=== PATIENT | male | born 1985 | race Caucasian/White ===

== ENCOUNTER 2019-12-19 16:22 | Inpatient (IN) | payer OTHER ==
[~2019-12-19] VITALS: Ht 185.4 cm; Wt 86.0 kg
[2019-12-19] MEDS ORDERED: KETOROLAC 30 MG/ML VIAL. ONE (17:48)
--- NOTE | 2019-12-19 17:58 | PHYS DOC ---
Adult General Chief Complaint Chief Complaint: SHORTNESS OF BREATH HPI HPI Patient is a 34 year old male patient who complains of shortness of breath, states he has been diagnosed with influenza presently 3 to 4 days ago, has been taking Tamiflu. States this morning he started to have some increase shortness of breath, with coughing which is led to some hemoptysis, had gone to urgent care and had chest x-ray performed due to the increased coughing and shortness of breath. States he was told he had an abscess in his chest and was told to come to the emergency room. States he has continued to have a fever, he has continued feel short of breath. States he had taken some Tylenol this morning. Does report he has history of a prior collapsed lung, on the left side, reports his discomfort and abscess were on the right side of his chest today. States no recent travel, or exposure to individuals who have recently traveled or been diagnosed with any acute illness of influenza. States he does have some body a ches. Denies nausea. Denies vomiting. Does report he vapes. Review of Systems Review of Systems Constitutional: reports fever, chills, fatigue [] Eyes: Denies change in visual acuity, redness, or eye pain [] HENT: Does report nasal congestion, sore throat related to his coughing. Denies ear pain [] Respiratory: Reports cough worsening today, some shortness of breath reports hemoptysis earlier today [] Cardiovascular: No additional information not addressed in HPI [] GI: Denies abdominal pain, nausea, vomiting, bloody stools or diarrhea [] : Denies dysuria or hematuria [] Musculoskeletal: Denies back pain or joint pain [] Integument: Denies rash or skin lesions [] Neurologic: Denies headache, focal weakness or sensory changes [] Endocrine: Denies polyuria or polydipsia [] All other systems were reviewed and found to be within normal limits, except as documented in this note. Current Medications Current Medications Current Medications Medications (Trade) Dose Ordered Sig/Sonido Start Time Stop Time Status Last Admin Dose Admin Benzonatate (Tessalon Perle) 100 mg TID 12/19/19 21:00 12/19/19 21:17 100 MG Ceftriaxone Sodium (Rocephin) 1 gm 1X ONCE 12/19/19 18:45 12/19/19 18:46 DC 12/19/19 18:56 1 GM Guaifenesin (Mucinex) 600 mg BID 12/19/19 21:00 12/19/19 21:17 600 MG Guaifenesin/ Codeine Phosphate (Robitussin Ac) 10 ml PRN Q6HRS PRN 12/19/19 20:45 Info (CONTRAST GIVEN -- Rx MONITORING) 1 each PRN DAILY PRN 12/19/19 18:30 12/21/19 18:29 Iohexol (Omnipaque 300 Mg/ml) 75 ml 1X ONCE 12/19/19 18:15 12/19/19 18:16 DC 12/19/19 18:23 75 ML Ketorolac Tromethamine (Toradol 30mg Vial) 30 mg 1X ONCE 12/19/19 18:00 12/19/19 18:01 DC 12/19/19 17:54 30 MG Morphine Sulfate (Morphine Sulfate) 2 mg PRN Q2HR PRN 12/19/19 20:00 12/20/19 19:59 Ondansetron HCl (Zofran) 4 mg PRN Q8HRS PRN 12/19/19 20:00 12/20/19 19:59 Piperacillin Sod/ Tazobactam Sod (Zosyn Per Pharmacy) 1 each PRN DAILY PRN 12/19/19 20:30 Piperacillin Sod/ Tazobactam Sod 3.375 gm/Sodium Chloride 50 ml @ 100 mls/hr 1X ONCE 12/19/19 19:30 12/19/19 19:59 DC 12/19/19 19:40 100 MLS/HR Sodium Chloride 1,000 ml @ 125 mls/hr Q8H 12/19/19 19:50 12/20/19 19:49 12/19/19 21:39 125 MLS/HR Vancomycin HCl 250 ml @ 250 mls/hr 1X ONCE 12/19/19 19:30 12/19/19 20:29 DC 12/19/19 20:24 250 MLS/HR Allergies Allergies Allergies Coded Allergies Type Severity Reaction Last Updated Verified No Known Drug Allergies 12/19/19 No Physical Exam Physical Exam Constitutional: Well developed, well nourished, no acute distress, appears ill. [] HENT: Normocephalic, atraumatic, bilateral external ears normal, oropharynx moist, no oral exudates, nose normal. [] Eyes: PERRLA, EOMI, conjunctiva normal, no discharge. [] Neck: Normal range of motion, no tenderness, supple, no stridor. [] Cardiovascular:Heart rate regular rhythm, tachycardic no murmur [] Lungs & Thorax: Bilateral breath sounds clear to auscultation patient able speak in multiple word sentences. [] Abdomen: Bowel sounds normal, soft, no tenderness, no masses, no pulsatile masses. [] Skin: Warm, dry, no erythema, no rash. [] Back: No tenderness, no CVA tenderness. [] Extremities: No tenderness, no cyanosis, no clubbing, ROM intact, no edema. [] Neurologic: Alert and oriented X 3, normal motor function, normal sensory function, no focal deficits noted. [] Psychologic: Affect normal, judgement normal, mood normal. [] Current Patient Data Vital Signs Vital Signs Date Time Temp Pulse Resp B/P (MAP) Pulse Ox O2 Delivery O2 Flow Rate FiO2 12/19/19 21:24 99.7 99.7 12/19/19 17:35 126 24 132/64 (86) 94 Room Air Lab Values Laboratory Tests Test 12/19/19 17:45 12/19/19 18:00 12/19/19 21:00 White Blood Count 17.4 x10^3/uL (4.0-11.0) H Red Blood Count 5.04 x10^6/uL (4.30-5.70) Hemoglobin 14.7 g/dL (13.0-17.5) Hematocrit 43.6 % (39.0-53.0) Mean Corpuscular Volume 86 fL (79-100) Mean Corpuscular Hemoglobin 29 pg (25-35) Mean Corpuscular Hemoglobin Concent 34 g/dL (31-37) Red Cell Distribution Width 13.3 % (11.5-14.5) Platelet Count 366 x10^3/uL (140-400) Neutrophils (%) (Auto) 70 % (31-73) Lymphocytes (%) (Auto) 17 % (24-48) L Monocytes (%) (Auto) 11 % (0-9) H Eosinophils (%) (Auto) 1 % (0-3) Basophils (%) (Auto) 0 % (0-3) Neutrophils # (Auto) 12.2 x10^3/uL (1.8-7.7) H Lymphocytes # (Auto) 3.0 x10^3/uL (1.0-4.8) Monocytes # (Auto) 2.0 x10^3/uL (0.0-1.1) H Eosinophils # (Auto) 0.2 x10^3/uL (0.0-0.7) Basophils # (Auto) 0.1 x10^3/uL (0.0-0.2) Segmented Neutrophils % 58 % (35-66) Band Neutrophils % 15 % (0-9) H Lymphocytes % 18 % (24-48) L Atypical Lymphocytes % (Manual) 2 % (0-0) H Monocytes % 7 % (0-10) Platelet Estimate Adequate (ADEQUATE) Giant Platelets Occ Sodium Level 139 mmol/L (136-145) Potassium Level 3.6 mmol/L (3.5-5.1) Chloride Level 101 mmol/L (98-107) Carbon Dioxide Level 29 mmol/L (21-32) Anion Gap 9 (6-14) Blood Urea Nitrogen 13 mg/dL (8-26) Creatinine 1.1 mg/dL (0.7-1.3) Estimated GFR (Cockcroft-Gault) 76.2 BUN/Creatinine Ratio 12 (6-20) Glucose Level 95 mg/dL (70-99) Lactic Acid Level 2.3 mmol/L (0.4-2.0) H 1.3 mmol/L (0.4-2.0) Calcium Level 9.0 mg/dL (8.5-10.1) Magnesium Level 2.4 mg/dL (1.8-2.4) Total Bilirubin 0.9 mg/dL (0.2-1.0) Aspartate Amino Transferase (AST) 13 U/L (15-37) L Alanine Aminotransferase (ALT) 27 U/L (16-63) Alkaline Phosphatase 81 U/L (46-116) Troponin I Quantitative < 0.017 ng/mL (0.000-0.055) Total Protein 8.0 g/dL (6.4-8.2) Albumin 3.5 g/dL (3.4-5.0) Albumin/Globulin Ratio 0.8 (1.0-1.7) L Urine Collection Type Unknown Urine Color [place] Urine Clarity Clear Urine pH 6.0 (<5.0-8.0) Urine Specific [place] 1.025 (1.000-1.030) Urine Protein 30 mg/dL (NEG-TRACE) Urine Glucose (UA) Negative mg/dL (NEG) Urine Ketones (Stick) 15 mg/dL (NEG) Urine Blood Negative (NEG) Urine Nitrite Negative (NEG) Urine Bilirubin Small (NEG) Urine Urobilinogen Dipstick 1.0 mg/dL (0.2 mg/dL) Urine Leukocyte Esterase Negative (NEG) Urine RBC Occ /HPF (0-2) Urine WBC 1-4 /HPF (0-4) Urine Squamous Epithelial Cells Occ /LPF Urine Bacteria 0 /HPF (0-FEW) Urine Mucus Mod /LPF Laboratory Tests 12/19/19 17:45 Laboratory Tests 12/19/19 17:45 EKG EKG Sinus tachycardia without ST changes. Per Dr. Bird @[id number][] Radiology/Procedures Radiology/Procedures []FINDINGS: Heart size normal. Thoracic aorta, esophagus and pulmonary vessels are unremarkable. Subcentimeter mediastinal and right hilar lymph nodes. Subcentimeter in thickness dependent left pleural effusion at the lung base. There is asymmetric left hilar and infrahilar adenopathy largest lymph nodes measuring up to 2.5 cm. Bilateral upper lobe paraseptal pulmonary emphysema, with bullous change at the lung apices. Along the right anterior lung apex there is a area of pleural parenchymal fibrosis and dense dystrophic calcification measuring 3 x 2 cm. At the left upper lobe posterior segment and upper lingula there is opacity, which surrounds a upper lingula lateral subpleural thick walled cavitation with air-fluid levels or cavitation is a diameter 6 cm. No obvious extension across the pleura to the chest wall of the cavitary lesion evident. Bones unremarkable. IMPRESSION: 1. Lingula 6 cm thick-walled cavitary subpleural lesion with an air-fluid level and surrounding opacity of the lingula and left upper lobe. This could represent a necrotizing pneumonia and pulmonary abscess, a large cavitary pulmonary infarct with superinfection of the cavity, reactivation tuberculosis, or a cavitary malignancy. Given the single lesion, an autoimmune disease such as Melissa's granulomatosis is unlikely. 2. Small left pleural effusion. 3. Left hilar adenopathy. Electronically signed by: Edilson Patel MD (12/19/2019 6:54 PM) [id number] Course & Med Decision Making Course & Med Decision Making Pertinent Labs and Imaging studies reviewed. (See chart for details) [@[address] Liao, Pulmonology. Recommend starting Zosyn and Vancomycin. Recommends consult with infectious disease. Admission of the patient the hospitalist. He will see in hospital tomorrow. @[address] Carlisle, hospitalist, agrees to admission Dragon Disclaimer Dragon Disclaimer This electronic medical record was generated, in whole or in part, using a voice recognition dictation system. Departure Departure Impression: Primary Impression: Pulmonary abscess Additional Impression: Leukocytosis Disposition: ADMITTED INPATIENT Admitting Physician: HIMS Condition: STABLE Referrals: NO PCP (PCP) Problem Qualifiers Primary Impression: Pulmonary abscess Pulmonary abscess pneumonia presence: with pneumonia Laterality: left Lung location: upper lobe of lung Qualified Codes: J85.1 - Abscess of lung with pneumonia Additional Impression: Leukocytosis Leukocytosis type: bandemia Qualified Codes: D72.825 - Bandemia DARYL RIVERO [employer] Dec 19, 2019 17:58
[2019-12-19] MEDS ORDERED: IV NORMAL SALINE 1000ML BAG 1,000 ML IV ONE ×2 (18:00→18:45)
[2019-12-19] MEDS ORDERED: KETOROLAC 30 MG/ML VIAL. IVP ONE (18:00)
[2019-12-19 18:03] LABS: BASO # 0.1 x10^3/uL (0.0-0.2); BASO % 0 % (0-3); EOS # 0.2 x10^3/uL (0.0-0.7); EOS % 1 % (0-3); HEMATOCRIT 43.6 % (39.0-53.0); HEMOGLOBIN 14.7 g/dL (13.0-17.5); LYMPH % 17 % (24-48); MEAN CORPUSCULAR HEMOGLOBIN 29 pg (25-35); MEAN CORPUSCULAR HGB CONC 34 g/dL (31-37); MEAN CORPUSCULAR VOLUME 86 fL (79-100); MONO % 11 % (0-9); NEUT # 12.2 x10^3/uL (1.8-7.7); NEUT % 70 % (31-73); PLATELET COUNT 366 x10^3/uL (140-400); RED BLOOD COUNT 5.04 x10^6/uL (4.30-5.70); RED CELL DISTRIBUTION WIDTH 13.3 % (11.5-14.5); WHITE BLOOD COUNT 17.4 x10^3/uL (4.0-11.0)
[2019-12-19 18:07] LABS: BILIRUBIN,URINE SMALL (NEG); CLARITY,URINE CLEAR; COLOR,URINE AMBER; NITRITE,URINE NEGATIVE (NEG); PROTEIN,URINE 30 mg/dL (NEG-TRACE)
[2019-12-19 18:10] LABS: CREATININE 1.1 mg/dL (0.7-1.3); GFR 76.2; POTASSIUM 3.6 mmol/L (3.5-5.1)
[2019-12-19] MEDS ORDERED: IOHEXOL 300 MG/ML 100ML VIAL. IV ONE (18:15)
[2019-12-19 18:17] LABS: ALBUMIN 3.5 g/dL (3.4-5.0); ALBUMIN/GLOBULIN RATIO 0.8 (1.0-1.7); MAGNESIUM 2.4 mg/dL (1.8-2.4); TOTAL BILIRUBIN 0.9 mg/dL (0.2-1.0)
[2019-12-19 18:17] LABS: BACTERIA,URINE 0 /HPF (0-FEW); RBC,URINE OCC /HPF (0-2); SQUAMOUS EPITHELIAL CELL,UR OCC /LPF
[2019-12-19] MEDS ORDERED: CONTRAST GIVEN. MC PRN (18:30)
[2019-12-19] MEDS ORDERED: cefTRIAXone IV Push 1 GM VIAL. IVP ONE (18:45)
[2019-12-19 18:49] LABS: % ATYL 2 % (0-0); % BANDS 15 % (0-9); % LYMPHS 18 % (24-48)
[2019-12-19 18:51] LABS: % MONOS 7 % (0-10); % SEGS 58 % (35-66); PLT ESTIMATE ADEQUATE (ADEQUATE)
--- NOTE | 2019-12-19 18:57 | RAD ---
CT chest with contrast PQRS statement: CT scans at this facility use dose reduction including either automated exposure control, iterative reconstructions, and /or weight based radiation dosing via mA and kV modification when appropriate to reduce radiation dose to as low as reasonably achievable. Contrast: 75 mL Omnipaque 300 intravenous contrast. HISTORY: Shortness of breath, hemoptysis. FINDINGS: Heart size normal. Thoracic aorta, esophagus and pulmonary vessels are unremarkable. Subcentimeter mediastinal and right hilar lymph nodes. Subcentimeter in thickness dependent left pleural effusion at the lung base. There is asymmetric left hilar and infrahilar adenopathy largest lymph nodes measuring up to 2.5 cm. Bilateral upper lobe paraseptal pulmonary emphysema, with bullous change at the lung apices. Along the right anterior lung apex there is a area of pleural parenchymal fibrosis and dense dystrophic calcification measuring 3 x 2 cm. At the left upper lobe posterior segment and upper lingula there is opacity, which surrounds a upper lingula lateral subpleural thick walled cavitation with air-fluid levels or cavitation is a diameter 6 cm. No obvious extension across the pleura to the chest wall of the cavitary lesion evident. Bones unremarkable. IMPRESSION: 1. Lingula 6 cm thick-walled cavitary subpleural lesion with an air-fluid level and surrounding opacity of the lingula and left upper lobe. This could represent a necrotizing pneumonia and pulmonary abscess, a large cavitary pulmonary infarct with superinfection of the cavity, reactivation tuberculosis, or a cavitary malignancy. Given the single lesion, an autoimmune disease such as Melissa's granulomatosis is unlikely. 2. Small left pleural effusion. 3. Left hilar adenopathy. Electronically signed by: Edilson Patel MD (12/19/2019 6:54 PM) [id number]
[2019-12-19] MEDS ORDERED: PIPERACILLIN/TAZOBACTAM 3.375 GM in IV NORMAL SALINE 50ML 50 ML IV ONE (19:30)
[2019-12-19] MEDS ORDERED: VANCOMYCIN 1GM IVPB FOR OMNI 250 ML IV ONE (19:30)
[2019-12-19] MEDS ORDERED: MORPHINE SULFATE 2 MG/ML VIAL. IV PRN (20:00)
[2019-12-19] MEDS ORDERED: ONDANSETRON PF 4 MG/2 ML VIAL. IV PRN (20:00)
[2019-12-19] MEDS ORDERED: guaiFENesin/CODEINE 100mg/10mg 5 ML LIQUID PO PRN (20:00)
[2019-12-19] MEDS ORDERED: PIP/TAZO PER PHARMACY MC PRN (20:30)
--- NOTE | 2019-12-19 20:47 | PDOC1 ---
History and Physical Date of Admission Date of Admission DATE: 12/19/19 TIME: 20:44 History of Present Illness History of Present Illness Mr. Nix, is a 34 year old male patient who complains of shortness of breath, states he has been diagnosed with influenza presently 3 to 4 days ago, has been taking Tamiflu. States this morning he started to have some increase shortness of breath, with coughing which is led to some hemoptysis, had gone to urgent care and had chest x-ray performed due to the increased coughing and shortness of breath. States he was told he had an abscess in his chest and was told to come to the emergency room. States he has continued to have a fever, he has continued feel short of breath. States he had taken some Tylenol this morning. Does report he has history of a prior collapsed lung, on the left side, reports his discomfort and abscess were on the right side of his chest today. States no recent travel, or exposure to individuals who have recently traveled or been diagnosed with any acute illness of influenza. States he does have some body aches. he works for [employer], installing in [place] Past Medical History Cardiovascular: No pertinent hx Pulmonary: Other (spont pneumothorax years ago, contralteral) Past Surgical History Past Surgical History: Other (had spont pneumo) Family History Family History: Asthma Social History Smoke: <1 pack per day (VAPING) ALCOHOL: none Drugs: None Current Problem List Problem List Problems Medical Problems: (1) Leukocytosis Status: Acute (2) Pulmonary abscess Status: Acute Current Medications Current Medications Current Medications Ketorolac Tromethamine (Toradol 30mg Vial) 30 mg STK-MED ONCE .ROUTE ; Start 12/19/19 at 17:48; Stop 12/19/19 at 17:48; Status DC Ketorolac Tromethamine (Toradol 30mg Vial) 30 mg 1X ONCE IVP Last administered on 12/19/19at 17:54; Start 12/19/19 at 18:00; Stop 12/19/19 at 18:01; Status DC Sodium Chloride 1,000 ml @ 1,000 mls/hr 1X ONCE IV Last administered on 12/19/19at 17:54; Start 12/19/19 at 18:00; Stop 12/19/19 at 18:59; Status DC Iohexol (Omnipaque 300 Mg/ml) 75 ml 1X ONCE IV Last administered on 12/19/19at 18:23; Start 12/19/19 at 18:15; Stop 12/19/19 at 18:16; Status DC Info (CONTRAST GIVEN -- Rx MONITORING) 1 each PRN DAILY PRN MC SEE COMMENTS; Start 12/19/19 at 18:30; Stop 12/21/19 at 18:29 Sodium Chloride 1,000 ml @ 1,000 mls/hr 1X ONCE IV Last administered on 12/19/19at 18:57; Start 12/19/19 at 18:45; Stop 12/19/19 at 19:44; Status DC Ceftriaxone Sodium (Rocephin) 1 gm 1X ONCE IVP Last administered on 12/19/19at 18:56; Start 12/19/19 at 18:45; Stop 12/19/19 at 18:46; Status DC Piperacillin Sod/ Tazobactam Sod 3.375 gm/Sodium Chloride 50 ml @ 100 mls/hr 1X ONCE IV Last administered on 12/19/19at 19:40; Start 12/19/19 at 19:30; Stop 12/19/19 at 19:59; Status DC Vancomycin HCl 250 ml @ 250 mls/hr 1X ONCE IV Last administered on 12/19/19at 20:24; Start 12/19/19 at 19:30; Stop 12/19/19 at 20:29; Status DC Guaifenesin/ Codeine Phosphate (Robitussin Ac) 5 ml PRN Q6HRS PRN PO COUGH; Start 12/19/19 at 20:00 Ondansetron HCl (Zofran) 4 mg PRN Q8HRS PRN IV NAUSEA/VOMITING; Start 12/19/19 at 20:00; Stop 12/20/19 at 19:59 Morphine Sulfate (Morphine Sulfate) 2 mg PRN Q2HR PRN IV PAIN; Start 12/19/19 at 20:00; Stop 12/20/19 at 19:59 Sodium Chloride 1,000 ml @ 125 mls/hr Q8H IV ; Start 12/19/19 at 19:50; Stop 12/20/19 at 19:49 Piperacillin Sod/ Tazobactam Sod (Zosyn Per Pharmacy) 1 each PRN DAILY PRN MC SEE COMMENTS; Start 12/19/19 at 20:30 Linezolid/Dextrose 300 ml @ 300 mls/hr Q12HR IV ; Start 12/19/19 at 22:00 Piperacillin Sod/ Tazobactam Sod 4.5 gm/Sodium Chloride 100 ml @ 200 mls/hr Q6HRS IV ; Start 12/20/19 at 00:00 Benzonatate (Tessalon Perle) 100 mg TID PO ; Start 12/19/19 at 21:00 Guaifenesin/ Codeine Phosphate (Robitussin Ac) 10 ml PRN Q6HRS PRN PO COUGH; Start 12/19/19 at 20:45 Guaifenesin (Mucinex) 600 mg BID PO ; Start 12/19/19 at 21:00 Allergies Allergies: Coded Allergies: No Known Drug Allergies (Unverified , 12/19/19) ROS Review of System fever General: YES: Chills, Fatigue, Malaise, Appetite; No: Night Sweats, Other PSYCHOLOGICAL ROS: YES: Irritablity, Sleep disturbances; No: Anxiety, Behavioral Disorder, Concentration difficultie, Decreased libido , Depression, Disorientation, Hallucinations, Memory difficulties, Mood Swings, Obsessive thoughts, Physical abuse, Sexual abuse, Suicidal ideation, Other Eyes: No Blurry vision, No Decreased vision, No Double vision, No Dry eyes, No Excessive tearing, No Eye Pain, No Itchy Eyes, No Loss of vision, No Photophobia, No Scotomata, No Uses contacts, No Uses glasses, No Other Respiratory: YES: Cough, Pleuritic Pain, SOB with excertion, Tachypnea Cardiovascular: yes Chest Pain Gastrointestinal: No Nausea, No Vomiting, No Abdominal Pain, No Diarrhea, No Constipation, No Melena, No Hematochezia, No Other Genitourinary: No Dysuria, No Frequency, No Incontinence, No Hematuria, No Retention, No Discharge, No Urgency, No Pain, No Flank Pain, No Other, No , No , No , No , No , No , No Musculoskeletal: No Gait Disturbance, No Joint Pain, No Joint Stiffness, No Joint Swelling, No Muscle Pain, No Muscular Weakness, No Pain In:, No Swelling In:, No Other Neurological: No Behavorial Changes, No Bowel/Bladder ControlChng, No Confusion, No Dizziness, No Gait Disturbance, No Headaches, No Impaired Coord/balance, No Memory Loss, No Numbness/Tingling, No Seizures, No Speech Problems, No Tremors, No Visual Changes, No Weakness, No Other Skin: No Dry Skin, No Eczema, No Hair Changes, No Lumps, No Mole Changes, No Mottling, No Nail Changes, No Pruritus, No Rash, No Skin Lesion Changes, No Other, No Acne Physical Exam General: Alert, Oriented X3, Cooperative, moderate distress HEENT: Atraumatic, PERRLA Lungs: Clear to auscultation Heart: RRR, no thrills, no gallops, no murmurs Abdomen: Normal bowel sounds, Soft Extremities: No clubbing, No cyanosis, No edema Skin: No rashes, No significant lesion Neuro: Normal gait, Normal speech, Sensation intact Psych/Mental Status: Other (distress, cough) Vitals Vitals Vital Signs Date Time Temp Pulse Resp B/P (MAP) Pulse Ox O2 Delivery O2 Flow Rate FiO2 12/19/19 17:35 98.2 126 24 132/64 (86) 94 Room Air 98.2 Labs Labs Laboratory Tests Test 12/19/19 17:45 12/19/19 18:00 White Blood Count 17.4 x10^3/uL (4.0-11.0) Red Blood Count 5.04 x10^6/uL (4.30-5.70) Hemoglobin 14.7 g/dL (13.0-17.5) Hematocrit 43.6 % (39.0-53.0) Mean Corpuscular Volume 86 fL (79-100) Mean Corpuscular Hemoglobin 29 pg (25-35) Mean Corpuscular Hemoglobin Concent 34 g/dL (31-37) Red Cell Distribution Width 13.3 % (11.5-14.5) Platelet Count 366 x10^3/uL (140-400) Neutrophils (%) (Auto) 70 % (31-73) Lymphocytes (%) (Auto) 17 % (24-48) Monocytes (%) (Auto) 11 % (0-9) Eosinophils (%) (Auto) 1 % (0-3) Basophils (%) (Auto) 0 % (0-3) Neutrophils # (Auto) 12.2 x10^3/uL (1.8-7.7) Lymphocytes # (Auto) 3.0 x10^3/uL (1.0-4.8) Monocytes # (Auto) 2.0 x10^3/uL (0.0-1.1) Eosinophils # (Auto) 0.2 x10^3/uL (0.0-0.7) Basophils # (Auto) 0.1 x10^3/uL (0.0-0.2) Segmented Neutrophils % 58 % (35-66) Band Neutrophils % 15 % (0-9) Lymphocytes % 18 % (24-48) Atypical Lymphocytes % (Manual) 2 % (0-0) Monocytes % 7 % (0-10) Platelet Estimate Adequate (ADEQUATE) Giant Platelets Occ Sodium Level 139 mmol/L (136-145) Potassium Level 3.6 mmol/L (3.5-5.1) Chloride Level 101 mmol/L (98-107) Carbon Dioxide Level 29 mmol/L (21-32) Anion Gap 9 (6-14) Blood Urea Nitrogen 13 mg/dL (8-26) Creatinine 1.1 mg/dL (0.7-1.3) Estimated GFR (Cockcroft-Gault) 76.2 BUN/Creatinine Ratio 12 (6-20) Glucose Level 95 mg/dL (70-99) Lactic Acid Level 2.3 mmol/L (0.4-2.0) Calcium Level 9.0 mg/dL (8.5-10.1) Magnesium Level 2.4 mg/dL (1.8-2.4) Total Bilirubin 0.9 mg/dL (0.2-1.0) Aspartate Amino Transf (AST/SGOT) 13 U/L (15-37) Alanine Aminotransferase (ALT/SGPT) 27 U/L (16-63) Alkaline Phosphatase 81 U/L (46-116) Troponin I Quantitative < 0.017 ng/mL (0.000-0.055) Total Protein 8.0 g/dL (6.4-8.2) Albumin 3.5 g/dL (3.4-5.0) Albumin/Globulin Ratio 0.8 (1.0-1.7) Urine Collection Type Unknown Urine Color [place]ina Urine Clarity Clear Urine pH 6.0 (<5.0-8.0) Urine Specific [place] 1.025 (1.000-1.030) Urine Protein 30 mg/dL (NEG-TRACE) Urine Glucose (UA) Negative mg/dL (NEG) Urine Ketones (Stick) 15 mg/dL (NEG) Urine Blood Negative (NEG) Urine Nitrite Negative (NEG) Urine Bilirubin Small (NEG) Urine Urobilinogen Dipstick 1.0 mg/dL (0.2 mg/dL) Urine Leukocyte Esterase Negative (NEG) Urine RBC Occ /HPF (0-2) Urine WBC 1-4 /HPF (0-4) Urine Squamous Epithelial Cells Occ /LPF Urine Bacteria 0 /HPF (0-FEW) Urine Mucus Mod /LPF Laboratory Tests Test 12/19/19 17:45 12/19/19 18:00 White Blood Count 17.4 x10^3/uL (4.0-11.0) Red Blood Count 5.04 x10^6/uL (4.30-5.70) Hemoglobin 14.7 g/dL (13.0-17.5) Hematocrit 43.6 % (39.0-53.0) Mean Corpuscular Volume 86 fL (79-100) Mean Corpuscular Hemoglobin 29 pg (25-35) Mean Corpuscular Hemoglobin Concent 34 g/dL (31-37) Red Cell Distribution Width 13.3 % (11.5-14.5) Platelet Count 366 x10^3/uL (140-400) Neutrophils (%) (Auto) 70 % (31-73) Lymphocytes (%) (Auto) 17 % (24-48) Monocytes (%) (Auto) 11 % (0-9) Eosinophils (%) (Auto) 1 % (0-3) Basophils (%) (Auto) 0 % (0-3) Neutrophils # (Auto) 12.2 x10^3/uL (1.8-7.7) Lymphocytes # (Auto) 3.0 x10^3/uL (1.0-4.8) Monocytes # (Auto) 2.0 x10^3/uL (0.0-1.1) Eosinophils # (Auto) 0.2 x10^3/uL (0.0-0.7) Basophils # (Auto) 0.1 x10^3/uL (0.0-0.2) Segmented Neutrophils % 58 % (35-66) Band Neutrophils % 15 % (0-9) Lymphocytes % 18 % (24-48) Atypical Lymphocytes % (Manual) 2 % (0-0) Monocytes % 7 % (0-10) Platelet Estimate Adequate (ADEQUATE) Giant Platelets Occ Sodium Level 139 mmol/L (136-145) Potassium Level 3.6 mmol/L (3.5-5.1) Chloride Level 101 mmol/L (98-107) Carbon Dioxide Level 29 mmol/L (21-32) Anion Gap 9 (6-14) Blood Urea Nitrogen 13 mg/dL (8-26) Creatinine 1.1 mg/dL (0.7-1.3) Estimated GFR (Cockcroft-Gault) 76.2 BUN/Creatinine Ratio 12 (6-20) Glucose Level 95 mg/dL (70-99) Lactic Acid Level 2.3 mmol/L (0.4-2.0) Calcium Level 9.0 mg/dL (8.5-10.1) Magnesium Level 2.4 mg/dL (1.8-2.4) Total Bilirubin 0.9 mg/dL (0.2-1.0) Aspartate Amino Transf (AST/SGOT) 13 U/L (15-37) Alanine Aminotransferase (ALT/SGPT) 27 U/L (16-63) Alkaline Phosphatase 81 U/L (46-116) Troponin I Quantitative < 0.017 ng/mL (0.000-0.055) Total Protein 8.0 g/dL (6.4-8.2) Albumin 3.5 g/dL (3.4-5.0) Albumin/Globulin Ratio 0.8 (1.0-1.7) Urine Collection Type Unknown Urine Color [place] Urine Clarity Clear Urine pH 6.0 (<5.0-8.0) Urine Specific [place] 1.025 (1.000-1.030) Urine Protein 30 mg/dL (NEG-TRACE) Urine Glucose (UA) Negative mg/dL (NEG) Urine Ketones (Stick) 15 mg/dL (NEG) Urine Blood Negative (NEG) Urine Nitrite Negative (NEG) Urine Bilirubin Small (NEG) Urine Urobilinogen Dipstick 1.0 mg/dL (0.2 mg/dL) Urine Leukocyte Esterase Negative (NEG) Urine RBC Occ /HPF (0-2) Urine WBC 1-4 /HPF (0-4) Urine Squamous Epithelial Cells Occ /LPF Urine Bacteria 0 /HPF (0-FEW) Urine Mucus Mod /LPF VTE Prophylaxis Ordered VTE Prophylaxis Devices: Yes VTE Pharmacological Prophylaxi: No (chest tube likely needed) Assessment/Plan Assessment/Plan sepsis recent influenza, possible superinfection with pulmonary abcess. broad abx, , pulm consult, will consult IR, may need chest tube, consult ID, abx, cough meds, admit MOE CARRINGTON MD Dec 19, 2019 20:47
[2019-12-19] MEDS: BENZONATATE 100 MG CAPSULE. PO SCH (21:17)
[2019-12-19] MEDS: IV NORMAL SALINE 1000ML BAG 1,000 ML IV SCH (21:39)
[2019-12-19 23:31] VITALS: BP 114/59
[2019-12-20] VITALS (7 sets, daily range): BP systolic 110–138; BP diastolic 51–70
[2019-12-20] MEDS ORDERED: ACETAMINOPHEN 325 MG TABLET. PO ONE ×2
[2019-12-20] MEDS: PIPERACILLIN/TAZOBACTAM 4.5 GM in IV NORMAL SALINE 100ML 100 ML IV SCH ×4 (00:57→18:20)
[2019-12-20] MEDS: guaiFENesin/CODEINE 100mg/10mg 5 ML LIQUID PO PRN (01:00)
[2019-12-20] MEDS: IV NORMAL SALINE 1000ML BAG 1,000 ML IV SCH ×2 (04:22→18:20)
--- NOTE | 2019-12-20 05:28 | EKG ---
[facility] [address] [place] [address] Test Date: 2019-12-19 Test Time: 17:52:10 Pat Name: ABDIFATAH PALMA Department: Room: Gender: M [employer]: : 1985 Requested By: DARYL RIVERO Order Number: [id number] Reading MD: Measurements Intervals [place] Rate: 114 P: 20 AR: 132 QRS: 51 QRSD: 92 T: 39 QT: 304 QTc: 422 Interpretive Statements SINUS TACHYCARDIA INCOMPLETE RIGHT BUNDLE BRANCH BLOCK QRS(T) CONTOUR ABNORMALITY CONSIDER ANTEROSEPTAL MYOCARDIAL DAMAGE POSSIBLY ABNORMAL ECG RI6.01 No previous ECG available for comparison
[2019-12-20 06:59] LABS: CALCIUM 7.8 mg/dL (8.5-10.1); POTASSIUM 3.7 mmol/L (3.5-5.1)
--- NOTE | 2019-12-20 09:04 | PDOC ---
Infectious Disease Note Vital Sign Vital Signs Vital Signs Date Time Temp Pulse Resp B/P (MAP) Pulse Ox O2 Delivery O2 Flow Rate FiO2 12/20/19 07:00 98.2 97 16 110/58 (75) 94 Nasal Cannula 3.0 98.2 Labs Lab Laboratory Tests Test 12/19/19 17:45 12/19/19 18:00 12/19/19 21:00 12/20/19 06:26 White Blood Count 17.4 x10^3/uL (4.0-11.0) Red Blood Count 5.04 x10^6/uL (4.30-5.70) Hemoglobin 14.7 g/dL (13.0-17.5) Hematocrit 43.6 % (39.0-53.0) Mean Corpuscular Volume 86 fL (79-100) Mean Corpuscular Hemoglobin 29 pg (25-35) Mean Corpuscular Hemoglobin Concent 34 g/dL (31-37) Red Cell Distribution Width 13.3 % (11.5-14.5) Platelet Count 366 x10^3/uL (140-400) Neutrophils (%) (Auto) 70 % (31-73) Lymphocytes (%) (Auto) 17 % (24-48) Monocytes (%) (Auto) 11 % (0-9) Eosinophils (%) (Auto) 1 % (0-3) Basophils (%) (Auto) 0 % (0-3) Neutrophils # (Auto) 12.2 x10^3/uL (1.8-7.7) Lymphocytes # (Auto) 3.0 x10^3/uL (1.0-4.8) Monocytes # (Auto) 2.0 x10^3/uL (0.0-1.1) Eosinophils # (Auto) 0.2 x10^3/uL (0.0-0.7) Basophils # (Auto) 0.1 x10^3/uL (0.0-0.2) Segmented Neutrophils % 58 % (35-66) Band Neutrophils % 15 % (0-9) Lymphocytes % 18 % (24-48) Atypical Lymphocytes % (Manual) 2 % (0-0) Monocytes % 7 % (0-10) Platelet Estimate Adequate (ADEQUATE) Giant Platelets Occ Sodium Level 139 mmol/L (136-145) 138 mmol/L (136-145) Potassium Level 3.6 mmol/L (3.5-5.1) 3.7 mmol/L (3.5-5.1) Chloride Level 101 mmol/L (98-107) 105 mmol/L (98-107) Carbon Dioxide Level 29 mmol/L (21-32) 22 mmol/L (21-32) Anion Gap 9 (6-14) 11 (6-14) Blood Urea Nitrogen 13 mg/dL (8-26) 12 mg/dL (8-26) Creatinine 1.1 mg/dL (0.7-1.3) 1.0 mg/dL (0.7-1.3) Estimated GFR (Cockcroft-Gault) 76.2 85.0 BUN/Creatinine Ratio 12 (6-20) Glucose Level 95 mg/dL (70-99) 113 mg/dL (70-99) Lactic Acid Level 2.3 mmol/L (0.4-2.0) 1.3 mmol/L (0.4-2.0) Calcium Level 9.0 mg/dL (8.5-10.1) 7.8 mg/dL (8.5-10.1) Magnesium Level 2.4 mg/dL (1.8-2.4) Total Bilirubin 0.9 mg/dL (0.2-1.0) Aspartate Amino Transf (AST/SGOT) 13 U/L (15-37) Alanine Aminotransferase (ALT/SGPT) 27 U/L (16-63) Alkaline Phosphatase 81 U/L (46-116) Troponin I Quantitative < 0.017 ng/mL (0.000-0.055) Total Protein 8.0 g/dL (6.4-8.2) Albumin 3.5 g/dL (3.4-5.0) Albumin/Globulin Ratio 0.8 (1.0-1.7) Urine Collection Type Unknown Urine Color [place]ina Urine Clarity Clear Urine pH 6.0 (<5.0-8.0) Urine Specific [place] 1.025 (1.000-1.030) Urine Protein 30 mg/dL (NEG-TRACE) Urine Glucose (UA) Negative mg/dL (NEG) Urine Ketones (Stick) 15 mg/dL (NEG) Urine Blood Negative (NEG) Urine Nitrite Negative (NEG) Urine Bilirubin Small (NEG) Urine Urobilinogen Dipstick 1.0 mg/dL (0.2 mg/dL) Urine Leukocyte Esterase Negative (NEG) Urine RBC Occ /HPF (0-2) Urine WBC 1-4 /HPF (0-4) Urine Squamous Epithelial Cells Occ /LPF Urine Bacteria 0 /HPF (0-FEW) Urine Mucus Mod /LPF Objective Assessment pt seen, consult dictated Plan Plan of Care / NOEMI POWELL MD Dec 20, 2019 09:04
[2019-12-20] MEDS: LACTOBACILLUS RHAMNOSUS GG 1 CAPSULE. PO SCH ×2 (09:53→21:16)
[2019-12-20] MEDS: BENZONATATE 100 MG CAPSULE. PO SCH ×3 (09:53→21:16)
--- NOTE | 2019-12-20 10:51 | CONS ---
DATE OF CONSULTATION: 12/20/2019 PULMONARY CONSULTATION ATTENDING PHYSICIAN: Dr. Carlisle REASON FOR CONSULTATION: Lung abscess and pneumonia. HISTORY OF PRESENT ILLNESS: The patient is 34 years old who smoked for about 16 years and does do vaping. He did not feel well, was feeling feverish and achy. As a result, he was seen at urgent care and was diagnosed with influenza and was started on Tamiflu. The patient started to have some cough with hemoptysis. As a result, he went for urgent care again, and chest x-ray was done and showed an air fluid level and consistent with abscess in his chest. As a result, he was asked to come to the Emergency Room. The patient continued to have fevers. He has not had hemoptysis since then. He has a mild cough which has been nonproductive. He denies any shortness of breath. He is requiring 2 liters of oxygen. He denies any substance abuse. He denies any chronic fevers or night sweats. No TB exposure. He has a history of negative PPD in the past. No weight loss. He also had a history of spontaneous pneumothorax on the right side 10 years ago, which required chest tube. No recurrence since then. Imaging study was performed, and I have reviewed the patient's CT chest. There is a thick 6 cm wall cavity in the left upper lobe with air fluid level consistent with lung abscess. There is surrounding pneumonia as well. I have been asked to see him for further evaluation. He was started on broad-spectrum antibiotic and Infectious Disease has been consulted. PAST MEDICAL HISTORY: 1. History of tobaccoism for 16 years. 2. History of spontaneous right-sided pneumothorax 10 years ago and requiring chest tube. PAST SURGICAL HISTORY: Chest tube for spontaneous pneumothorax 10 years ago. FAMILY HISTORY: Asthma. REVIEW OF SYSTEMS: A 12-point system obtained. Pertinent positives discussed in my history of present illness, otherwise noncontributory. All systems that were negative were reviewed as well. SOCIAL HISTORY: He does vaping on a regular basis and smoke cigarettes for 16 years before quitting 9 months ago. ALLERGIES: None. MEDICATIONS: Reviewed as listed in the [facility]AD including Zosyn and Zyvox. PHYSICAL EXAMINATION: VITAL SIGNS: Reviewed. T-max of 101.5. Blood pressure stable. Pulse ox 94% on 3 liters. NECK: Supple. LUNGS: With diminished breath sounds. CARDIOVASCULAR: With a regular rate. ABDOMEN: Soft. EXTREMITIES: With no pitting edema. LABORATORY DATA: Reviewed. White cell count 17.4, hemoglobin 14.7, and platelets are 366. BUN and creatinine normal. IMPRESSION: 1. Acute hypoxic respiratory failure secondary to necrotizing pneumonia/lung abscess. Clinically, unlikely tuberculosis and also unlikely pulmonary vasculitis. Vaping may be a risk factor. 2. Possible underlying chronic obstructive pulmonary disease, smoked for 16 years. 3. History of spontaneous pneumothorax on the right side 10 years ago, requiring chest tube and no other surgical intervention. 4. Abnormal CT chest consistent with left upper lobe lung abscess and pneumonia along with emphysematous blebs and changes in the upper lobes. 5. Influenza RECOMMENDATIONS: 1. Continue present oxygen. 2. Continue broad-spectrum antibiotics./ Tamiflu 3. Obtain sputum for C and S. 4. Obtain blood cultures. 5. Follow ID recommendations. 6. Obtain PPD and it was negative. Respiratory isolation for TB can be discontinued. 7. We will monitor the response to treatment. 8. If symptoms do not improve, we will consider bronchoscopy. 9. Discussed with RN and discussed with Dr. Carlisle. SATNAM OLSEN MD DR: AWA/victorino JOB#: [id number] / [id number] SAHIL
--- NOTE | 2019-12-20 11:35 | CONS ---
DATE OF CONSULTATION: 12/20/2019 REQUESTING PHYSICIAN: Taisha Carlisle MD. REASON FOR CONSULTATION: Lung abscess. HISTORY OF PRESENT ILLNESS: This is a 34-year-old gentleman who started having a cough, not feeling well last Tuesday. The patient was seen in the primary care's office/urgent care. The patient had influenza screen negative there, but was told that he has flu and was put on Tamiflu. He continued to have problem and before admission, he coughed up blood, hence he decided to come in. The patient had fever, shortness of breath, cough and episode of coughing up blood. Denies any headache. Denies any abdominal pain, chest pain, urinary symptoms or bowel symptoms. Denied any nausea, vomiting or diarrhea. PAST MEDICAL HISTORY: Unremarkable. Other than that, he has had spontaneous pneumothorax about 10 years ago. SOCIAL HISTORY: He quit smoking about 10 months ago. No alcohol use or drug use. The patient has never been homeless, never been in [facility], no known tuberculosis exposure, has never been out of country. ALLERGIES: No known drug allergies. CURRENT MEDICATIONS: The patient is on Zyvox and Zosyn and received one dose of vancomycin, one dose of Rocephin. REVIEW OF SYSTEMS: As per HPI, all other systems reviewed are negative. PHYSICAL EXAMINATION: GENERAL: Alert, oriented gentleman, not in distress. VITAL SIGNS: Stable with a T-max 101.5. HEENT: Both pupils are round and reacting. No conjunctival lesion, no lesion in the mouth. NECK: Supple, no JVP, no lymphadenopathy. LUNGS: Clear. HEART: S1, S2 regular. ABDOMEN: Benign. EXTREMITIES: No edema or cyanosis. SKIN: Unremarkable. NEUROLOGIC: The patient is alert, awake and appropriate. No focal neurologic deficit. LABORATORY DATA: White count is 17.4, platelets are normal. BUN and creatinine is normal. Lactic acid was 2.3. Urinalysis unremarkable. Chest CT done, which showed a 6 cm thick walled cavitary subpleural lesion with air fluid level and surrounding opacity of the lingula and left upper lobe. IMPRESSION: 1. Left upper lobe lung abscess. 2. Fever. 3. Leukocytosis. RECOMMENDATIONS: 1. Blood culture. 2. Sputum culture. 3. Agree with Zyvox and Zosyn, supportive care, might need a CT drainage or biopsy and/or bronchoscopy. We will continue to follow. Thank you very much, Dr. Carlisle, for giving me the opportunity to participate in this patient's care. NOEMI POWELL MD DR: EZE/victorino JOB#: [id number] / [id number]
--- NOTE | 2019-12-20 11:51 | PDOC ---
[facility] PROGRESS NOTE Chief Complaint Chief Complaint pulmonary abscess History of Present Illness History of Present Illness 12/20/19 Pt seen and examined laying in bed. Says he was diagnosed with flu at urgent care few days ago. Discussed chart with RN. Will await rec from pulm and ID regarding drainage. Vitals/I&O Vitals/I&O: Vital Signs Date Time Temp Pulse Resp B/P (MAP) Pulse Ox O2 Delivery O2 Flow Rate FiO2 12/20/19 08:00 Nasal Cannula 2.0 12/20/19 07:00 98.2 97 16 110/58 (75) 94 98.2 I & O 12/19/19 12/19/19 12/20/19 15:00 23:00 07:00 Intake Total 2300 ml 600 ml Balance 2300 ml 600 ml Physical Exam General: Alert, Oriented X3, Cooperative, moderate distress Abdomen: Normal bowel sounds, Soft Extremities: No clubbing, No cyanosis, No edema Skin: No rashes, No significant lesion Labs Labs: Laboratory Tests Test 12/19/19 17:45 12/19/19 18:00 12/19/19 21:00 12/20/19 06:26 White Blood Count 17.4 x10^3/uL (4.0-11.0) Red Blood Count 5.04 x10^6/uL (4.30-5.70) Hemoglobin 14.7 g/dL (13.0-17.5) Hematocrit 43.6 % (39.0-53.0) Mean Corpuscular Volume 86 fL (79-100) Mean Corpuscular Hemoglobin 29 pg (25-35) Mean Corpuscular Hemoglobin Concent 34 g/dL (31-37) Red Cell Distribution Width 13.3 % (11.5-14.5) Platelet Count 366 x10^3/uL (140-400) Neutrophils (%) (Auto) 70 % (31-73) Lymphocytes (%) (Auto) 17 % (24-48) Monocytes (%) (Auto) 11 % (0-9) Eosinophils (%) (Auto) 1 % (0-3) Basophils (%) (Auto) 0 % (0-3) Neutrophils # (Auto) 12.2 x10^3/uL (1.8-7.7) Lymphocytes # (Auto) 3.0 x10^3/uL (1.0-4.8) Monocytes # (Auto) 2.0 x10^3/uL (0.0-1.1) Eosinophils # (Auto) 0.2 x10^3/uL (0.0-0.7) Basophils # (Auto) 0.1 x10^3/uL (0.0-0.2) Segmented Neutrophils % 58 % (35-66) Band Neutrophils % 15 % (0-9) Lymphocytes % 18 % (24-48) Atypical Lymphocytes % (Manual) 2 % (0-0) Monocytes % 7 % (0-10) Platelet Estimate Adequate (ADEQUATE) Giant Platelets Occ Sodium Level 139 mmol/L (136-145) 138 mmol/L (136-145) Potassium Level 3.6 mmol/L (3.5-5.1) 3.7 mmol/L (3.5-5.1) Chloride Level 101 mmol/L (98-107) 105 mmol/L (98-107) Carbon Dioxide Level 29 mmol/L (21-32) 22 mmol/L (21-32) Anion Gap 9 (6-14) 11 (6-14) Blood Urea Nitrogen 13 mg/dL (8-26) 12 mg/dL (8-26) Creatinine 1.1 mg/dL (0.7-1.3) 1.0 mg/dL (0.7-1.3) Estimated GFR (Cockcroft-Gault) 76.2 85.0 BUN/Creatinine Ratio 12 (6-20) Glucose Level 95 mg/dL (70-99) 113 mg/dL (70-99) Lactic Acid Level 2.3 mmol/L (0.4-2.0) 1.3 mmol/L (0.4-2.0) Calcium Level 9.0 mg/dL (8.5-10.1) 7.8 mg/dL (8.5-10.1) Magnesium Level 2.4 mg/dL (1.8-2.4) Total Bilirubin 0.9 mg/dL (0.2-1.0) Aspartate Amino Transf (AST/SGOT) 13 U/L (15-37) Alanine Aminotransferase (ALT/SGPT) 27 U/L (16-63) Alkaline Phosphatase 81 U/L (46-116) Troponin I Quantitative < 0.017 ng/mL (0.000-0.055) Total Protein 8.0 g/dL (6.4-8.2) Albumin 3.5 g/dL (3.4-5.0) Albumin/Globulin Ratio 0.8 (1.0-1.7) Urine Collection Type Unknown Urine Color [place] Urine Clarity Clear Urine pH 6.0 (<5.0-8.0) Urine Specific [place] 1.025 (1.000-1.030) Urine Protein 30 mg/dL (NEG-TRACE) Urine Glucose (UA) Negative mg/dL (NEG) Urine Ketones (Stick) 15 mg/dL (NEG) Urine Blood Negative (NEG) Urine Nitrite Negative (NEG) Urine Bilirubin Small (NEG) Urine Urobilinogen Dipstick 1.0 mg/dL (0.2 mg/dL) Urine Leukocyte Esterase Negative (NEG) Urine RBC Occ /HPF (0-2) Urine WBC 1-4 /HPF (0-4) Urine Squamous Epithelial Cells Occ /LPF Urine Bacteria 0 /HPF (0-FEW) Urine Mucus Mod /LPF Review of Systems Review of Systems: gen: no significant weight changes CV: no palpitations or CP GI: no N/V Assessment and Plan Assessmemt and Plan Problems Medical Problems: (1) Leukocytosis Status: Acute (2) Pulmonary abscess Status: Acute Assessment Pulmonary abscess sepsis recent influenza-possible superinfection with pulmonary abscess. Plan Considering pulm abscess drainage and chest tube apprec recs Pulm and ID Continue abx Continue tamiflu 75mg BID for recent flu dx Trend labs Continue inpt treatment Home meds DVT prophylaxis Full code Comment Review of Relevant I have reviewed the following items alysa (where applicable) has been applied. Medications: Current Medications Medications (Trade) Dose Ordered Sig/Sonido Route PRN Reason Start Time Stop Time Status Last Admin Dose Admin Ketorolac Tromethamine (Toradol 30mg Vial) 30 mg 1X ONCE IVP 12/19/19 18:00 12/19/19 18:01 DC 12/19/19 17:54 Sodium Chloride 1,000 ml @ 1,000 mls/hr 1X ONCE IV 12/19/19 18:00 12/19/19 18:59 DC 12/19/19 17:54 Iohexol (Omnipaque 300 Mg/ml) 75 ml 1X ONCE IV 12/19/19 18:15 12/19/19 18:16 DC 12/19/19 18:23 Sodium Chloride 1,000 ml @ 1,000 mls/hr 1X ONCE IV 12/19/19 18:45 12/19/19 19:44 DC 12/19/19 18:57 Ceftriaxone Sodium (Rocephin) 1 gm 1X ONCE IVP 12/19/19 18:45 12/19/19 18:46 DC 12/19/19 18:56 Piperacillin Sod/ Tazobactam Sod 3.375 gm/Sodium Chloride 50 ml @ 100 mls/hr 1X ONCE IV 12/19/19 19:30 12/19/19 19:59 DC 12/19/19 19:40 Vancomycin HCl 250 ml @ 250 mls/hr 1X ONCE IV 12/19/19 19:30 12/19/19 20:29 DC 12/19/19 20:24 Sodium Chloride 1,000 ml @ 125 mls/hr Q8H IV 12/19/19 19:50 12/20/19 19:49 12/20/19 04:22 Linezolid/Dextrose 300 ml @ 300 mls/hr Q12HR IV 12/19/19 22:00 12/20/19 09:53 Piperacillin Sod/ Tazobactam Sod 4.5 gm/Sodium Chloride 100 ml @ 200 mls/hr Q6HRS IV 12/20/19 00:00 12/20/19 06:05 Benzonatate (Tessalon Perle) 100 mg TID PO 12/19/19 21:00 12/20/19 09:53 Guaifenesin/ Codeine Phosphate (Robitussin Ac) 10 ml PRN Q6HRS PRN PO COUGH 12/19/19 20:45 12/20/19 01:00 Guaifenesin (Mucinex) 600 mg BID PO 12/19/19 21:00 12/20/19 09:53 Acetaminophen (Tylenol) 650 mg Q6HRS ONCE PO 12/20/19 00:00 12/19/19 21:41 DC 12/19/19 21:39 Acetaminophen (Tylenol) 650 mg 1X ONCE PO 12/20/19 00:00 12/20/19 00:01 DC 12/20/19 00:59 Lactobacillus Rhamnosus (Culturelle) 1 cap BID PO 12/20/19 09:00 12/20/19 09:53 CATIE CHACKO III DO Dec 20, 2019 11:51
[2019-12-20 11:52] LABS: BASO # 0.1 x10^3/uL (0.0-0.2); BASO % 1 % (0-3); EOS # 0.1 x10^3/uL (0.0-0.7); EOS % 2 % (0-3); HEMATOCRIT 36.2 % (39.0-53.0); HEMOGLOBIN 12.2 g/dL (13.0-17.5); LYMPH # 1.6 x10^3/uL (1.0-4.8); LYMPH % 15 % (24-48); MEAN CORPUSCULAR HEMOGLOBIN 29 pg (25-35); MEAN CORPUSCULAR HGB CONC 34 g/dL (31-37); MEAN CORPUSCULAR VOLUME 86 fL (79-100); MONO # 0.5 x10^3/uL (0.0-1.1); MONO % 5 % (0-9); NEUT # 7.9 x10^3/uL (1.8-7.7); NEUT % 77 % (31-73); PLATELET COUNT 298 x10^3/uL (140-400); RED BLOOD COUNT 4.22 x10^6/uL (4.30-5.70); WHITE BLOOD COUNT 10.2 x10^3/uL (4.0-11.0)
[2019-12-20] MEDS: OSELTAMIVIR 75 MG CAPSULE PO SCH ×2 (12:51→21:16)
--- NOTE | 2019-12-20 12:57 | NUR ---
SS following for discharge planning. SS reviewed pt chart. Pt is from home and is currently requiring oxygen. SS will continue to follow for discharge planning.
[2019-12-20] MEDS ORDERED: TUBERCULIN PPD 5TUB.UNIT 0.1 ML TEST. ID ONE (15:30)
--- NOTE | 2019-12-20 19:01 | NUR ---
Pt was given ppd skin test in right forearm this shift.
[2019-12-21] MEDS: PIPERACILLIN/TAZOBACTAM 4.5 GM in IV NORMAL SALINE 100ML 100 ML IV SCH ×5 (00:04→23:26)
[2019-12-21 03:00] VITALS: BP 124/64
[2019-12-21 06:02] LABS: BASO # 0.1 x10^3/uL (0.0-0.2); BASO % 1 % (0-3); EOS # 0.4 x10^3/uL (0.0-0.7); EOS % 4 % (0-3); HEMATOCRIT 36.7 % (39.0-53.0); HEMOGLOBIN 12.2 g/dL (13.0-17.5); LYMPH # 1.7 x10^3/uL (1.0-4.8); LYMPH % 16 % (24-48); MEAN CORPUSCULAR HEMOGLOBIN 29 pg (25-35); MEAN CORPUSCULAR HGB CONC 33 g/dL (31-37); MEAN CORPUSCULAR VOLUME 86 fL (79-100); MONO # 0.9 x10^3/uL (0.0-1.1); MONO % 8 % (0-9); NEUT # 7.4 x10^3/uL (1.8-7.7); NEUT % 71 % (31-73); PLATELET COUNT 299 x10^3/uL (140-400); RED BLOOD COUNT 4.28 x10^6/uL (4.30-5.70); RED CELL DISTRIBUTION WIDTH 13.2 % (11.5-14.5); WHITE BLOOD COUNT 10.4 x10^3/uL (4.0-11.0)
[2019-12-21 06:16] LABS: CALCIUM 8.2 mg/dL (8.5-10.1); POTASSIUM 3.5 mmol/L (3.5-5.1)
[2019-12-21 07:00] VITALS: BP 110/65
--- NOTE | 2019-12-21 07:33 | NUR ---
IP: Pt adm with [facility], Influenza negative on 12/16 but Tamiflu started. No improvement so pt admitted. Pt to be in droplet precautions for 7 days from onset and 24 hours without a fever, whichever is longest.
--- NOTE | 2019-12-21 08:46 | PDOC ---
Infectious Disease Note Subjective Subjective feeling better says ROS ROS no n/v/d/sob Vital Sign Vital Signs Vital Signs Date Time Temp Pulse Resp B/P (MAP) Pulse Ox O2 Delivery O2 Flow Rate FiO2 12/21/19 07:00 98.0 87 18 110/65 (80) 96 Room Air 98.0 12/21/19 03:00 3.5 Physical Exam PHYSICAL EXAM GENERAL: Alert, oriented gentleman, not in distress. VITAL SIGNS: Stable HEENT: Both pupils are round and reacting. No conjunctival lesion, no lesion in the mouth. NECK: Supple, no JVP, no lymphadenopathy. LUNGS: Clear. HEART: S1, S2 regular. ABDOMEN: Benign. EXTREMITIES: No edema or cyanosis. SKIN: Unremarkable. NEUROLOGIC: The patient is alert, awake and appropriate. No focal neurologic deficit. Labs Lab Laboratory Tests Test 12/20/19 11:05 12/21/19 02:00 White Blood Count 10.2 x10^3/uL (4.0-11.0) 10.4 x10^3/uL (4.0-11.0) Red Blood Count 4.22 x10^6/uL (4.30-5.70) 4.28 x10^6/uL (4.30-5.70) Hemoglobin 12.2 g/dL (13.0-17.5) 12.2 g/dL (13.0-17.5) Hematocrit 36.2 % (39.0-53.0) 36.7 % (39.0-53.0) Mean Corpuscular Volume 86 fL (79-100) 86 fL (79-100) Mean Corpuscular Hemoglobin 29 pg (25-35) 29 pg (25-35) Mean Corpuscular Hemoglobin Concent 34 g/dL (31-37) 33 g/dL (31-37) Red Cell Distribution Width 13.0 % (11.5-14.5) 13.2 % (11.5-14.5) Platelet Count 298 x10^3/uL (140-400) 299 x10^3/uL (140-400) Neutrophils (%) (Auto) 77 % (31-73) 71 % (31-73) Lymphocytes (%) (Auto) 15 % (24-48) 16 % (24-48) Monocytes (%) (Auto) 5 % (0-9) 8 % (0-9) Eosinophils (%) (Auto) 2 % (0-3) 4 % (0-3) Basophils (%) (Auto) 1 % (0-3) 1 % (0-3) Neutrophils # (Auto) 7.9 x10^3/uL (1.8-7.7) 7.4 x10^3/uL (1.8-7.7) Lymphocytes # (Auto) 1.6 x10^3/uL (1.0-4.8) 1.7 x10^3/uL (1.0-4.8) Monocytes # (Auto) 0.5 x10^3/uL (0.0-1.1) 0.9 x10^3/uL (0.0-1.1) Eosinophils # (Auto) 0.1 x10^3/uL (0.0-0.7) 0.4 x10^3/uL (0.0-0.7) Basophils # (Auto) 0.1 x10^3/uL (0.0-0.2) 0.1 x10^3/uL (0.0-0.2) Sodium Level 138 mmol/L (136-145) Potassium Level 3.5 mmol/L (3.5-5.1) Chloride Level 105 mmol/L (98-107) Carbon Dioxide Level 23 mmol/L (21-32) Anion Gap 10 (6-14) Blood Urea Nitrogen 7 mg/dL (8-26) Creatinine 1.0 mg/dL (0.7-1.3) Estimated GFR (Cockcroft-Gault) 85.0 Glucose Level 113 mg/dL (70-99) Calcium Level 8.2 mg/dL (8.5-10.1) Objective Assessment IMPRESSION: 1. Left upper lobe lung abscess. 2. Fever. 3. Leukocytosis. Plan Plan of Care cont antibiotics NOEMI POWELL MD Dec 21, 2019 08:46
[2019-12-21] MEDS: guaiFENesin/CODEINE 100mg/10mg 5 ML LIQUID PO PRN (08:58)
[2019-12-21] MEDS: OSELTAMIVIR 75 MG CAPSULE PO SCH ×2 (08:58→20:42)
[2019-12-21] MEDS: LACTOBACILLUS RHAMNOSUS GG 1 CAPSULE. PO SCH ×2 (08:58→20:42)
[2019-12-21] MEDS: BENZONATATE 100 MG CAPSULE. PO SCH ×3 (08:58→20:42)
--- NOTE | 2019-12-21 10:08 | PDOC ---
PROGRESS NOTES Chief Complaint Chief Complaint pulmonary abscess sepsis acute hypoxia History of Present Illness History of Present Illness 12/20, cont current, symptoms better cough, chest pain with deep breaths, vitals better 12/20/19 Pt seen and examined laying in bed. Says he was diagnosed with flu at urgent care few days ago. Discussed chart with RN. Will await rec from pulm and ID regarding drainage. Vitals Vitals Vital Signs Date Time Temp Pulse Resp B/P (MAP) Pulse Ox O2 Delivery O2 Flow Rate FiO2 12/21/19 07:00 98.0 87 18 110/65 (80) 96 Room Air 98.0 12/21/19 03:00 3.5 Physical Exam Physical Exam GENERAL: Alert, oriented gentleman, not in distress. VITAL SIGNS: Stable HEENT: Both pupils are round and reacting. No conjunctival lesion, no lesion in the mouth. NECK: Supple, no JVP, no lymphadenopathy. LUNGS: Clear. HEART: S1, S2 regular. ABDOMEN: Benign. EXTREMITIES: No edema or cyanosis. SKIN: Unremarkable. NEUROLOGIC: The patient is alert, awake and appropriate. No focal neurologic deficit. General: Alert, Oriented X3, Cooperative, moderate distress Abdomen: Normal bowel sounds, Soft Extremities: No clubbing, No cyanosis, No edema Skin: No rashes, No significant lesion Labs LABS Laboratory Tests Test 12/20/19 11:05 12/21/19 02:00 White Blood Count 10.2 x10^3/uL (4.0-11.0) 10.4 x10^3/uL (4.0-11.0) Red Blood Count 4.22 x10^6/uL (4.30-5.70) 4.28 x10^6/uL (4.30-5.70) Hemoglobin 12.2 g/dL (13.0-17.5) 12.2 g/dL (13.0-17.5) Hematocrit 36.2 % (39.0-53.0) 36.7 % (39.0-53.0) Mean Corpuscular Volume 86 fL (79-100) 86 fL (79-100) Mean Corpuscular Hemoglobin 29 pg (25-35) 29 pg (25-35) Mean Corpuscular Hemoglobin Concent 34 g/dL (31-37) 33 g/dL (31-37) Red Cell Distribution Width 13.0 % (11.5-14.5) 13.2 % (11.5-14.5) Platelet Count 298 x10^3/uL (140-400) 299 x10^3/uL (140-400) Neutrophils (%) (Auto) 77 % (31-73) 71 % (31-73) Lymphocytes (%) (Auto) 15 % (24-48) 16 % (24-48) Monocytes (%) (Auto) 5 % (0-9) 8 % (0-9) Eosinophils (%) (Auto) 2 % (0-3) 4 % (0-3) Basophils (%) (Auto) 1 % (0-3) 1 % (0-3) Neutrophils # (Auto) 7.9 x10^3/uL (1.8-7.7) 7.4 x10^3/uL (1.8-7.7) Lymphocytes # (Auto) 1.6 x10^3/uL (1.0-4.8) 1.7 x10^3/uL (1.0-4.8) Monocytes # (Auto) 0.5 x10^3/uL (0.0-1.1) 0.9 x10^3/uL (0.0-1.1) Eosinophils # (Auto) 0.1 x10^3/uL (0.0-0.7) 0.4 x10^3/uL (0.0-0.7) Basophils # (Auto) 0.1 x10^3/uL (0.0-0.2) 0.1 x10^3/uL (0.0-0.2) Sodium Level 138 mmol/L (136-145) Potassium Level 3.5 mmol/L (3.5-5.1) Chloride Level 105 mmol/L (98-107) Carbon Dioxide Level 23 mmol/L (21-32) Anion Gap 10 (6-14) Blood Urea Nitrogen 7 mg/dL (8-26) Creatinine 1.0 mg/dL (0.7-1.3) Estimated GFR (Cockcroft-Gault) 85.0 Glucose Level 113 mg/dL (70-99) Calcium Level 8.2 mg/dL (8.5-10.1) Assessment and Plan Assessmemt and Plan Problems Medical Problems: (1) Leukocytosis Status: Acute (2) Pulmonary abscess Status: Acute Comment Review of Relevant I have reviewed the following items alysa (where applicable) has been applied. Labs Laboratory Tests Test 12/19/19 17:45 12/19/19 18:00 12/19/19 21:00 12/20/19 06:26 White Blood Count 17.4 x10^3/uL (4.0-11.0) Red Blood Count 5.04 x10^6/uL (4.30-5.70) Hemoglobin 14.7 g/dL (13.0-17.5) Hematocrit 43.6 % (39.0-53.0) Mean Corpuscular Volume 86 fL (79-100) Mean Corpuscular Hemoglobin 29 pg (25-35) Mean Corpuscular Hemoglobin Concent 34 g/dL (31-37) Red Cell Distribution Width 13.3 % (11.5-14.5) Platelet Count 366 x10^3/uL (140-400) Neutrophils (%) (Auto) 70 % (31-73) Lymphocytes (%) (Auto) 17 % (24-48) Monocytes (%) (Auto) 11 % (0-9) Eosinophils (%) (Auto) 1 % (0-3) Basophils (%) (Auto) 0 % (0-3) Neutrophils # (Auto) 12.2 x10^3/uL (1.8-7.7) Lymphocytes # (Auto) 3.0 x10^3/uL (1.0-4.8) Monocytes # (Auto) 2.0 x10^3/uL (0.0-1.1) Eosinophils # (Auto) 0.2 x10^3/uL (0.0-0.7) Basophils # (Auto) 0.1 x10^3/uL (0.0-0.2) Segmented Neutrophils % 58 % (35-66) Band Neutrophils % 15 % (0-9) Lymphocytes % 18 % (24-48) Atypical Lymphocytes % (Manual) 2 % (0-0) Monocytes % 7 % (0-10) Platelet Estimate Adequate (ADEQUATE) Giant Platelets Occ Sodium Level 139 mmol/L (136-145) 138 mmol/L (136-145) Potassium Level 3.6 mmol/L (3.5-5.1) 3.7 mmol/L (3.5-5.1) Chloride Level 101 mmol/L (98-107) 105 mmol/L (98-107) Carbon Dioxide Level 29 mmol/L (21-32) 22 mmol/L (21-32) Anion Gap 9 (6-14) 11 (6-14) Blood Urea Nitrogen 13 mg/dL (8-26) 12 mg/dL (8-26) Creatinine 1.1 mg/dL (0.7-1.3) 1.0 mg/dL (0.7-1.3) Estimated GFR (Cockcroft-Gault) 76.2 85.0 BUN/Creatinine Ratio 12 (6-20) Glucose Level 95 mg/dL (70-99) 113 mg/dL (70-99) Lactic Acid Level 2.3 mmol/L (0.4-2.0) 1.3 mmol/L (0.4-2.0) Calcium Level 9.0 mg/dL (8.5-10.1) 7.8 mg/dL (8.5-10.1) Magnesium Level 2.4 mg/dL (1.8-2.4) Total Bilirubin 0.9 mg/dL (0.2-1.0) Aspartate Amino Transf (AST/SGOT) 13 U/L (15-37) Alanine Aminotransferase (ALT/SGPT) 27 U/L (16-63) Alkaline Phosphatase 81 U/L (46-116) Troponin I Quantitative < 0.017 ng/mL (0.000-0.055) Total Protein 8.0 g/dL (6.4-8.2) Albumin 3.5 g/dL (3.4-5.0) Albumin/Globulin Ratio 0.8 (1.0-1.7) Urine Collection Type Unknown Urine Color [place] Urine Clarity Clear Urine pH 6.0 (<5.0-8.0) Urine Specific [place] 1.025 (1.000-1.030) Urine Protein 30 mg/dL (NEG-TRACE) Urine Glucose (UA) Negative mg/dL (NEG) Urine Ketones (Stick) 15 mg/dL (NEG) Urine Blood Negative (NEG) Urine Nitrite Negative (NEG) Urine Bilirubin Small (NEG) Urine Urobilinogen Dipstick 1.0 mg/dL (0.2 mg/dL) Urine Leukocyte Esterase Negative (NEG) Urine RBC Occ /HPF (0-2) Urine WBC 1-4 /HPF (0-4) Urine Squamous Epithelial Cells Occ /LPF Urine Bacteria 0 /HPF (0-FEW) Urine Mucus Mod /LPF Test 12/20/19 11:05 12/21/19 02:00 White Blood Count 10.2 x10^3/uL (4.0-11.0) 10.4 x10^3/uL (4.0-11.0) Red Blood Count 4.22 x10^6/uL (4.30-5.70) 4.28 x10^6/uL (4.30-5.70) Hemoglobin 12.2 g/dL (13.0-17.5) 12.2 g/dL (13.0-17.5) Hematocrit 36.2 % (39.0-53.0) 36.7 % (39.0-53.0) Mean Corpuscular Volume 86 fL (79-100) 86 fL (79-100) Mean Corpuscular Hemoglobin 29 pg (25-35) 29 pg (25-35) Mean Corpuscular Hemoglobin Concent 34 g/dL (31-37) 33 g/dL (31-37) Red Cell Distribution Width 13.0 % (11.5-14.5) 13.2 % (11.5-14.5) Platelet Count 298 x10^3/uL (140-400) 299 x10^3/uL (140-400) Neutrophils (%) (Auto) 77 % (31-73) 71 % (31-73) Lymphocytes (%) (Auto) 15 % (24-48) 16 % (24-48) Monocytes (%) (Auto) 5 % (0-9) 8 % (0-9) Eosinophils (%) (Auto) 2 % (0-3) 4 % (0-3) Basophils (%) (Auto) 1 % (0-3) 1 % (0-3) Neutrophils # (Auto) 7.9 x10^3/uL (1.8-7.7) 7.4 x10^3/uL (1.8-7.7) Lymphocytes # (Auto) 1.6 x10^3/uL (1.0-4.8) 1.7 x10^3/uL (1.0-4.8) Monocytes # (Auto) 0.5 x10^3/uL (0.0-1.1) 0.9 x10^3/uL (0.0-1.1) Eosinophils # (Auto) 0.1 x10^3/uL (0.0-0.7) 0.4 x10^3/uL (0.0-0.7) Basophils # (Auto) 0.1 x10^3/uL (0.0-0.2) 0.1 x10^3/uL (0.0-0.2) Sodium Level 138 mmol/L (136-145) Potassium Level 3.5 mmol/L (3.5-5.1) Chloride Level 105 mmol/L (98-107) Carbon Dioxide Level 23 mmol/L (21-32) Anion Gap 10 (6-14) Blood Urea Nitrogen 7 mg/dL (8-26) Creatinine 1.0 mg/dL (0.7-1.3) Estimated GFR (Cockcroft-Gault) 85.0 Glucose Level 113 mg/dL (70-99) Calcium Level 8.2 mg/dL (8.5-10.1) Laboratory Tests Test 12/20/19 11:05 12/21/19 02:00 White Blood Count 10.2 x10^3/uL (4.0-11.0) 10.4 x10^3/uL (4.0-11.0) Red Blood Count 4.22 x10^6/uL (4.30-5.70) 4.28 x10^6/uL (4.30-5.70) Hemoglobin 12.2 g/dL (13.0-17.5) 12.2 g/dL (13.0-17.5) Hematocrit 36.2 % (39.0-53.0) 36.7 % (39.0-53.0) Mean Corpuscular Volume 86 fL (79-100) 86 fL (79-100) Mean Corpuscular Hemoglobin 29 pg (25-35) 29 pg (25-35) Mean Corpuscular Hemoglobin Concent 34 g/dL (31-37) 33 g/dL (31-37) Red Cell Distribution Width 13.0 % (11.5-14.5) 13.2 % (11.5-14.5) Platelet Count 298 x10^3/uL (140-400) 299 x10^3/uL (140-400) Neutrophils (%) (Auto) 77 % (31-73) 71 % (31-73) Lymphocytes (%) (Auto) 15 % (24-48) 16 % (24-48) Monocytes (%) (Auto) 5 % (0-9) 8 % (0-9) Eosinophils (%) (Auto) 2 % (0-3) 4 % (0-3) Basophils (%) (Auto) 1 % (0-3) 1 % (0-3) Neutrophils # (Auto) 7.9 x10^3/uL (1.8-7.7) 7.4 x10^3/uL (1.8-7.7) Lymphocytes # (Auto) 1.6 x10^3/uL (1.0-4.8) 1.7 x10^3/uL (1.0-4.8) Monocytes # (Auto) 0.5 x10^3/uL (0.0-1.1) 0.9 x10^3/uL (0.0-1.1) Eosinophils # (Auto) 0.1 x10^3/uL (0.0-0.7) 0.4 x10^3/uL (0.0-0.7) Basophils # (Auto) 0.1 x10^3/uL (0.0-0.2) 0.1 x10^3/uL (0.0-0.2) Sodium Level 138 mmol/L (136-145) Potassium Level 3.5 mmol/L (3.5-5.1) Chloride Level 105 mmol/L (98-107) Carbon Dioxide Level 23 mmol/L (21-32) Anion Gap 10 (6-14) Blood Urea Nitrogen 7 mg/dL (8-26) Creatinine 1.0 mg/dL (0.7-1.3) Estimated GFR (Cockcroft-Gault) 85.0 Glucose Level 113 mg/dL (70-99) Calcium Level 8.2 mg/dL (8.5-10.1) Microbiology 12/19/19 Blood Culture - Preliminary, Resulted NO GROWTH AFTER 1 DAY Medications Current Medications Ketorolac Tromethamine (Toradol 30mg Vial) 30 mg STK-MED ONCE .ROUTE ; Start 12/19/19 at 17:48; Stop 12/19/19 at 17:48; Status DC Ketorolac Tromethamine (Toradol 30mg Vial) 30 mg 1X ONCE IVP Last administered on 12/19/19at 17:54; Start 12/19/19 at 18:00; Stop 12/19/19 at 18:01; Status DC Sodium Chloride 1,000 ml @ 1,000 mls/hr 1X ONCE IV Last administered on 12/19/19at 17:54; Start 12/19/19 at 18:00; Stop 12/19/19 at 18:59; Status DC Iohexol (Omnipaque 300 Mg/ml) 75 ml 1X ONCE IV Last administered on 12/19/19at 18:23; Start 12/19/19 at 18:15; Stop 12/19/19 at 18:16; Status DC Info (CONTRAST GIVEN -- Rx MONITORING) 1 each PRN DAILY PRN MC SEE COMMENTS; Start 12/19/19 at 18:30; Stop 12/21/19 at 18:29 Sodium Chloride 1,000 ml @ 1,000 mls/hr 1X ONCE IV Last administered on 12/19/19at 18:57; Start 12/19/19 at 18:45; Stop 12/19/19 at 19:44; Status DC Ceftriaxone Sodium (Rocephin) 1 gm 1X ONCE IVP Last administered on 12/19/19at 18:56; Start 12/19/19 at 18:45; Stop 12/19/19 at 18:46; Status DC Piperacillin Sod/ Tazobactam Sod 3.375 gm/Sodium Chloride 50 ml @ 100 mls/hr 1X ONCE IV Last administered on 12/19/19at 19:40; Start 12/19/19 at 19:30; Stop 12/19/19 at 19:59; Status DC Vancomycin HCl 250 ml @ 250 mls/hr 1X ONCE IV Last administered on 12/19/19at 20:24; Start 12/19/19 at 19:30; Stop 12/19/19 at 20:29; Status DC Guaifenesin/ Codeine Phosphate (Robitussin Ac) 5 ml PRN Q6HRS PRN PO COUGH; Start 12/19/19 at 20:00; Stop 12/20/19 at 08:55; Status DC Ondansetron HCl (Zofran) 4 mg PRN Q8HRS PRN IV NAUSEA/VOMITING; Start 12/19/19 at 20:00; Stop 12/20/19 at 19:59; Status DC Morphine Sulfate (Morphine Sulfate) 2 mg PRN Q2HR PRN IV PAIN; Start 12/19/19 at 20:00; Stop 12/20/19 at 19:59; Status DC Sodium Chloride 1,000 ml @ 125 mls/hr Q8H IV Last administered on 12/20/19at 18:20; Start 12/19/19 at 19:50; Stop 12/20/19 at 19:49; Status DC Piperacillin Sod/ Tazobactam Sod (Zosyn Per Pharmacy) 1 each PRN DAILY PRN MC SEE COMMENTS; Start 12/19/19 at 20:30 Linezolid/Dextrose 300 ml @ 300 mls/hr Q12HR IV Last administered on 12/21/19at 09:00; Start 12/19/19 at 22:00 Piperacillin Sod/ Tazobactam Sod 4.5 gm/Sodium Chloride 100 ml @ 200 mls/hr Q6H RS IV Last administered on 12/21/19at 06:22; Start 12/20/19 at 00:00 Benzonatate (Tessalon Perle) 100 mg TID PO Last administered on 12/21/19at 08:58; Start 12/19/19 at 21:00 Guaifenesin/ Codeine Phosphate (Robitussin Ac) 10 ml PRN Q6HRS PRN PO COUGH Last administered on 12/21/19at 08:58; Start 12/19/19 at 20:45 Guaifenesin (Mucinex) 600 mg BID PO Last administered on 12/21/19at 08:57; Start 12/19/19 at 21:00 Acetaminophen (Tylenol) 650 mg Q6HRS ONCE PO Last administered on 12/19/19at 21:39; Start 12/20/19 at 00:00; Stop 12/19/19 at 21:41; Status DC Acetaminophen (Tylenol) 650 mg 1X ONCE PO Last administered on 12/20/19at 00:59; Start 12/20/19 at 00:00; Stop 12/20/19 at 00:01; Status DC Lactobacillus Rhamnosus (Culturelle) 1 cap BID PO Last administered on 12/21/19at 08:58; Start 12/20/19 at 09:00 Oseltamivir Phosphate (Tamiflu) 75 mg BID PO Last administered on 12/21/19at 08:58; Start 12/20/19 at 12:00; Stop 12/24/19 at 21:01 Tuberculin PPD (Tubersol) 0.1 ml 1X ONCE ID Last administered on 12/20/19at 15 :35; Start 12/20/19 at 15:30; Stop 12/20/19 at 15:31; Status DC Vitals/I & O Vital Sign - Last 24 Hours 12/20/19 12/20/19 12/20/19 12/20/19 11:00 15:00 16:00 19:00 Temp 98.3 100.5 100.5 99.8 98.3 100.5 100.5 99.8 Pulse 98 102 98 113 Resp 16 18 18 16 B/P (MAP) 113/70 (84) 117/62 (80) 117/62 (80) 138/63 (88) Pulse Ox 96 96 96 97 O2 Delivery Nasal Cannula Nasal Cannula Nasal Cannula Nasal Cannula O2 Flow Rate 3.0 3.0 3.0 3.0 12/20/19 12/20/19 12/21/19 12/21/19 20:00 23:22 03:00 07:00 Temp 99.8 98.7 98.0 99.8 98.7 98.0 Pulse 113 95 87 Resp 28 20 18 B/P (MAP) 114/63 (80) 124/64 (84) 110/65 (80) Pulse Ox 96 95 96 O2 Delivery Nasal Cannula Nasal Cannula Nasal Cannula Room Air O2 Flow Rate 2.0 3.0 3.5 Intake and Output 12/20/19 12/20/19 12/21/19 15:00 23:00 07:00 Intake Total 118 ml 1400 ml Output Total 900 ml 551 ml 1150 ml Balance -782 ml -551 ml 250 ml MOE CARRINGTON MD Dec 21, 2019 10:08
[2019-12-21 11:00] VITALS: BP 123/67
--- NOTE | 2019-12-21 13:23 | PDOC ---
PULMONARY PROGRESS NOTES Subjective no soa fever curve better Vitals Vital Signs Date Time Temp Pulse Resp B/P (MAP) Pulse Ox O2 Delivery O2 Flow Rate FiO2 12/21/19 11:00 97.8 91 20 123/67 (85) 98 Nasal Cannula 4.0 97.8 General: Alert, No acute distress Lungs: Clear Cardiovascular: S1 Abdomen: Soft Neuro Exam: Alert Extremities: No Edema Skin: Warm Labs Laboratory Tests Test 12/19/19 17:45 12/19/19 18:00 12/19/19 21:00 12/20/19 06:26 White Blood Count 17.4 x10^3/uL (4.0-11.0) Red Blood Count 5.04 x10^6/uL (4.30-5.70) Hemoglobin 14.7 g/dL (13.0-17.5) Hematocrit 43.6 % (39.0-53.0) Mean Corpuscular Volume 86 fL (79-100) Mean Corpuscular Hemoglobin 29 pg (25-35) Mean Corpuscular Hemoglobin Concent 34 g/dL (31-37) Red Cell Distribution Width 13.3 % (11.5-14.5) Platelet Count 366 x10^3/uL (140-400) Neutrophils (%) (Auto) 70 % (31-73) Lymphocytes (%) (Auto) 17 % (24-48) Monocytes (%) (Auto) 11 % (0-9) Eosinophils (%) (Auto) 1 % (0-3) Basophils (%) (Auto) 0 % (0-3) Neutrophils # (Auto) 12.2 x10^3/uL (1.8-7.7) Lymphocytes # (Auto) 3.0 x10^3/uL (1.0-4.8) Monocytes # (Auto) 2.0 x10^3/uL (0.0-1.1) Eosinophils # (Auto) 0.2 x10^3/uL (0.0-0.7) Basophils # (Auto) 0.1 x10^3/uL (0.0-0.2) Segmented Neutrophils % 58 % (35-66) Band Neutrophils % 15 % (0-9) Lymphocytes % 18 % (24-48) Atypical Lymphocytes % (Manual) 2 % (0-0) Monocytes % 7 % (0-10) Platelet Estimate Adequate (ADEQUATE) Giant Platelets Occ Sodium Level 139 mmol/L (136-145) 138 mmol/L (136-145) Potassium Level 3.6 mmol/L (3.5-5.1) 3.7 mmol/L (3.5-5.1) Chloride Level 101 mmol/L (98-107) 105 mmol/L (98-107) Carbon Dioxide Level 29 mmol/L (21-32) 22 mmol/L (21-32) Anion Gap 9 (6-14) 11 (6-14) Blood Urea Nitrogen 13 mg/dL (8-26) 12 mg/dL (8-26) Creatinine 1.1 mg/dL (0.7-1.3) 1.0 mg/dL (0.7-1.3) Estimated GFR (Cockcroft-Gault) 76.2 85.0 BUN/Creatinine Ratio 12 (6-20) Glucose Level 95 mg/dL (70-99) 113 mg/dL (70-99) Lactic Acid Level 2.3 mmol/L (0.4-2.0) 1.3 mmol/L (0.4-2.0) Calcium Level 9.0 mg/dL (8.5-10.1) 7.8 mg/dL (8.5-10.1) Magnesium Level 2.4 mg/dL (1.8-2.4) Total Bilirubin 0.9 mg/dL (0.2-1.0) Aspartate Amino Transf (AST/SGOT) 13 U/L (15-37) Alanine Aminotransferase (ALT/SGPT) 27 U/L (16-63) Alkaline Phosphatase 81 U/L (46-116) Troponin I Quantitative < 0.017 ng/mL (0.000-0.055) Total Protein 8.0 g/dL (6.4-8.2) Albumin 3.5 g/dL (3.4-5.0) Albumin/Globulin Ratio 0.8 (1.0-1.7) Urine Collection Type Unknown Urine Color [place] Urine Clarity Clear Urine pH 6.0 (<5.0-8.0) Urine Specific [place] 1.025 (1.000-1.030) Urine Protein 30 mg/dL (NEG-TRACE) Urine Glucose (UA) Negative mg/dL (NEG) Urine Ketones (Stick) 15 mg/dL (NEG) Urine Blood Negative (NEG) Urine Nitrite Negative (NEG) Urine Bilirubin Small (NEG) Urine Urobilinogen Dipstick 1.0 mg/dL (0.2 mg/dL) Urine Leukocyte Esterase Negative (NEG) Urine RBC Occ /HPF (0-2) Urine WBC 1-4 /HPF (0-4) Urine Squamous Epithelial Cells Occ /LPF Urine Bacteria 0 /HPF (0-FEW) Urine Mucus Mod /LPF Test 12/20/19 11:05 12/21/19 02:00 White Blood Count 10.2 x10^3/uL (4.0-11.0) 10.4 x10^3/uL (4.0-11.0) Red Blood Count 4.22 x10^6/uL (4.30-5.70) 4.28 x10^6/uL (4.30-5.70) Hemoglobin 12.2 g/dL (13.0-17.5) 12.2 g/dL (13.0-17.5) Hematocrit 36.2 % (39.0-53.0) 36.7 % (39.0-53.0) Mean Corpuscular Volume 86 fL (79-100) 86 fL (79-100) Mean Corpuscular Hemoglobin 29 pg (25-35) 29 pg (25-35) Mean Corpuscular Hemoglobin Concent 34 g/dL (31-37) 33 g/dL (31-37) Red Cell Distribution Width 13.0 % (11.5-14.5) 13.2 % (11.5-14.5) Platelet Count 298 x10^3/uL (140-400) 299 x10^3/uL (140-400) Neutrophils (%) (Auto) 77 % (31-73) 71 % (31-73) Lymphocytes (%) (Auto) 15 % (24-48) 16 % (24-48) Monocytes (%) (Auto) 5 % (0-9) 8 % (0-9) Eosinophils (%) (Auto) 2 % (0-3) 4 % (0-3) Basophils (%) (Auto) 1 % (0-3) 1 % (0-3) Neutrophils # (Auto) 7.9 x10^3/uL (1.8-7.7) 7.4 x10^3/uL (1.8-7.7) Lymphocytes # (Auto) 1.6 x10^3/uL (1.0-4.8) 1.7 x10^3/uL (1.0-4.8) Monocytes # (Auto) 0.5 x10^3/uL (0.0-1.1) 0.9 x10^3/uL (0.0-1.1) Eosinophils # (Auto) 0.1 x10^3/uL (0.0-0.7) 0.4 x10^3/uL (0.0-0.7) Basophils # (Auto) 0.1 x10^3/uL (0.0-0.2) 0.1 x10^3/uL (0.0-0.2) Sodium Level 138 mmol/L (136-145) Potassium Level 3.5 mmol/L (3.5-5.1) Chloride Level 105 mmol/L (98-107) Carbon Dioxide Level 23 mmol/L (21-32) Anion Gap 10 (6-14) Blood Urea Nitrogen 7 mg/dL (8-26) Creatinine 1.0 mg/dL (0.7-1.3) Estimated GFR (Cockcroft-Gault) 85.0 Glucose Level 113 mg/dL (70-99) Calcium Level 8.2 mg/dL (8.5-10.1) Laboratory Tests Test 12/21/19 02:00 White Blood Count 10.4 x10^3/uL (4.0-11.0) Red Blood Count 4.28 x10^6/uL (4.30-5.70) Hemoglobin 12.2 g/dL (13.0-17.5) Hematocrit 36.7 % (39.0-53.0) Mean Corpuscular Volume 86 fL (79-100) Mean Corpuscular Hemoglobin 29 pg (25-35) Mean Corpuscular Hemoglobin Concent 33 g/dL (31-37) Red Cell Distribution Width 13.2 % (11.5-14.5) Platelet Count 299 x10^3/uL (140-400) Neutrophils (%) (Auto) 71 % (31-73) Lymphocytes (%) (Auto) 16 % (24-48) Monocytes (%) (Auto) 8 % (0-9) Eosinophils (%) (Auto) 4 % (0-3) Basophils (%) (Auto) 1 % (0-3) Neutrophils # (Auto) 7.4 x10^3/uL (1.8-7.7) Lymphocytes # (Auto) 1.7 x10^3/uL (1.0-4.8) Monocytes # (Auto) 0.9 x10^3/uL (0.0-1.1) Eosinophils # (Auto) 0.4 x10^3/uL (0.0-0.7) Basophils # (Auto) 0.1 x10^3/uL (0.0-0.2) Sodium Level 138 mmol/L (136-145) Potassium Level 3.5 mmol/L (3.5-5.1) Chloride Level 105 mmol/L (98-107) Carbon Dioxide Level 23 mmol/L (21-32) Anion Gap 10 (6-14) Blood Urea Nitrogen 7 mg/dL (8-26) Creatinine 1.0 mg/dL (0.7-1.3) Estimated GFR (Cockcroft-Gault) 85.0 Glucose Level 113 mg/dL (70-99) Calcium Level 8.2 mg/dL (8.5-10.1) Impression . 1. Acute hypoxic respiratory failure secondary to necrotizing pneumonia/lung abscess. Clinically, unlikely tuberculosis and also unlikely pulmonary vasculitis. Vaping may be a risk factor. 2. Possible underlying chronic obstructive pulmonary disease, smoked for 16 years. 3. History of spontaneous pneumothorax on the right side 10 years ago, requiring chest tube and no other surgical intervention. 4. Abnormal CT chest consistent with left upper lobe lung abscess and pneumonia along with emphysematous blebs and changes in the upper lobes. 5. Influenza Plan . 1. Continue present oxygen. 2. Continue broad-spectrum antibiotics./ Tamiflu 3. Obtain sputum for C and S. 4. Obtain blood cultures. 5. Follow ID recommendations. 6. Obtain PPD and if its negative, espiratory isolation for TB can be discontinued. 7. We will monitor the response to treatment. 8. If symptoms do not improve, we will consider bronchoscopy. Does not need it at present 9. Discussed with RN and discussed with Dr. Carlisle. 10. repeat ct chest in 4-6 weeks SATNAM OLSEN MD Dec 21, 2019 13:23
[2019-12-21 15:00] VITALS: BP 130/72
[2019-12-21] MEDS ORDERED: IV NORMAL SALINE 1000ML BAG 1,000 ML IV ONE (18:00)
[2019-12-21 18:26] VITALS: BP 137/65
[2019-12-21] MEDS: HYDROcodone/APAP 5/325MG 1 TAB TABLET PO PRN (20:42)
[2019-12-21 23:34] VITALS: BP 125/59
[2019-12-22] MEDS: ZOLPIDEM 5 MG TABLET. PO PRN ×2 (00:17→22:29)
[2019-12-22] MEDS: PIPERACILLIN/TAZOBACTAM 4.5 GM in IV NORMAL SALINE 100ML 100 ML IV SCH ×3 (06:00→18:11)
[2019-12-22] MEDS: LACTOBACILLUS RHAMNOSUS GG 1 CAPSULE. PO SCH ×2 (09:00→20:29)
[2019-12-22] MEDS: OSELTAMIVIR 75 MG CAPSULE PO SCH ×2 (09:00→20:29)
[2019-12-22] MEDS: BENZONATATE 100 MG CAPSULE. PO SCH ×3 (09:00→20:29)
[2019-12-22 11:00] VITALS: BP 121/69
--- NOTE | 2019-12-22 11:11 | NUR ---
Pt am medications given during downtime, See paper chart for administration record.
[2019-12-22 12:22] LABS: CALCIUM 8.2 mg/dL (8.5-10.1); POTASSIUM 3.5 mmol/L (3.5-5.1)
[2019-12-22 12:28] LABS: BASO # 0.1 x10^3/uL (0.0-0.2); BASO % 1 % (0-3); EOS # 0.6 x10^3/uL (0.0-0.7); EOS % 7 % (0-3); HEMATOCRIT 37.6 % (39.0-53.0); HEMOGLOBIN 12.5 g/dL (13.0-17.5); LYMPH # 2.2 x10^3/uL (1.0-4.8); LYMPH % 27 % (24-48); MEAN CORPUSCULAR HEMOGLOBIN 29 pg (25-35); MEAN CORPUSCULAR HGB CONC 33 g/dL (31-37); MEAN CORPUSCULAR VOLUME 87 fL (79-100); MONO # 0.7 x10^3/uL (0.0-1.1); MONO % 8 % (0-9); NEUT # 4.7 x10^3/uL (1.8-7.7); NEUT % 56 % (31-73); PLATELET COUNT 356 x10^3/uL (140-400); RED BLOOD COUNT 4.34 x10^6/uL (4.30-5.70); RED CELL DISTRIBUTION WIDTH 13.6 % (11.5-14.5); WHITE BLOOD COUNT 8.3 x10^3/uL (4.0-11.0)
--- NOTE | 2019-12-22 12:40 | PDOC ---
PULMONARY PROGRESS NOTES Subjective T max 100. is weak, sob better, has cough, has dental caries Vitals Vital Signs Date Time Temp Pulse Resp B/P (MAP) Pulse Ox O2 Delivery O2 Flow Rate FiO2 12/22/19 11:00 98.1 103 20 121/69 (86) 95 Nasal Cannula 4.0 98.1 ROS: No Nausea General: Alert, No acute distress HEENT: Other (nc at perrl) Lungs: Crackles Cardiovascular: S1, S2 Abdomen: Soft, Non-tender Neuro Exam: Alert, Oriented Extremities: No Edema Skin: Warm Labs Laboratory Tests Test 12/21/19 02:00 White Blood Count 10.4 x10^3/uL (4.0-11.0) Red Blood Count 4.28 x10^6/uL (4.30-5.70) Hemoglobin 12.2 g/dL (13.0-17.5) Hematocrit 36.7 % (39.0-53.0) Mean Corpuscular Volume 86 fL (79-100) Mean Corpuscular Hemoglobin 29 pg (25-35) Mean Corpuscular Hemoglobin Concent 33 g/dL (31-37) Red Cell Distribution Width 13.2 % (11.5-14.5) Platelet Count 299 x10^3/uL (140-400) Neutrophils (%) (Auto) 71 % (31-73) Lymphocytes (%) (Auto) 16 % (24-48) Monocytes (%) (Auto) 8 % (0-9) Eosinophils (%) (Auto) 4 % (0-3) Basophils (%) (Auto) 1 % (0-3) Neutrophils # (Auto) 7.4 x10^3/uL (1.8-7.7) Lymphocytes # (Auto) 1.7 x10^3/uL (1.0-4.8) Monocytes # (Auto) 0.9 x10^3/uL (0.0-1.1) Eosinophils # (Auto) 0.4 x10^3/uL (0.0-0.7) Basophils # (Auto) 0.1 x10^3/uL (0.0-0.2) Sodium Level 138 mmol/L (136-145) Potassium Level 3.5 mmol/L (3.5-5.1) Chloride Level 105 mmol/L (98-107) Carbon Dioxide Level 23 mmol/L (21-32) Anion Gap 10 (6-14) Blood Urea Nitrogen 7 mg/dL (8-26) Creatinine 1.0 mg/dL (0.7-1.3) Estimated GFR (Cockcroft-Gault) 85.0 Glucose Level 113 mg/dL (70-99) Calcium Level 8.2 mg/dL (8.5-10.1) Impression . 1. Acute hypoxic respiratory failure secondary to necrotizing pneumonia/lung abscess. Clinically, unlikely tuberculosis and also unlikely pulmonary vasculitis. Vaping may be a risk factor. 2. Possible underlying chronic obstructive pulmonary disease, smoked for 16 years. 3. History of spontaneous pneumothorax on the right side 10 years ago, requiring chest tube and no other surgical intervention. 4. Abnormal CT chest consistent with left upper lobe lung abscess and pneumonia along with emphysematous blebs and changes in the upper lobes. 5. Influenza Plan . 1. Continue present oxygen. 2. Continue broad-spectrum antibiotics./ Tamiflu 3. Obtain sputum for C and S. 4. Obtain blood cultures. 5. Follow ID recommendations. 6. Obtain PPD/or quantiferon gold and if its negative, espiratory isolation for TB can be discontinued. 7. We will monitor the response to treatment. 8. If symptoms do not improve, we will consider bronchoscopy. Does not need it at present 9. repeat ct chest in 4-6 weeks Discussed with RN and pt ZENOBIA JUNG MD Dec 22, 2019 12:39
--- NOTE | 2019-12-22 13:29 | PDOC ---
PROGRESS NOTES Chief Complaint Chief Complaint pulmonary abscess sepsis acute hypoxic repsiratory failure isolation for flu, r/o TB vaping related lung injury History of Present Illness History of Present Illness 12/21still in isolation for Flu, TB skin test to be done today, looks ok so far pain better, HR better 12/20, cont current, symptoms better cough, chest pain with deep breaths, vitals better 12/20/19 Pt seen and examined laying in bed. Says he was diagnosed with flu at urgent care few days ago. Discussed chart with RN. Will await rec from pulm and ID regarding drainage. Vitals Vitals Vital Signs Date Time Temp Pulse Resp B/P (MAP) Pulse Ox O2 Delivery O2 Flow Rate FiO2 12/22/19 11:00 98.1 103 20 121/69 (86) 95 Nasal Cannula 4.0 98.1 Physical Exam Physical Exam GENERAL: Alert, oriented gentleman, not in distress. VITAL SIGNS: Stable HEENT: Both pupils are round and reacting. No conjunctival lesion, no lesion in the mouth. NECK: Supple, no JVP, no lymphadenopathy. LUNGS: Clear. HEART: S1, S2 regular. ABDOMEN: Benign. EXTREMITIES: No edema or cyanosis. SKIN: Unremarkable. NEUROLOGIC: The patient is alert, awake and appropriate. No focal neurologic deficit. General: Alert, Oriented X3, Cooperative, moderate distress Lungs: Crackles Abdomen: Normal bowel sounds, Soft Extremities: No clubbing, No cyanosis, No edema Skin: No rashes, No significant lesion Labs LABS Laboratory Tests Test 12/22/19 05:00 12/22/19 06:00 White Blood Count 8.3 x10^3/uL (4.0-11.0) Red Blood Count 4.34 x10^6/uL (4.30-5.70) Hemoglobin 12.5 g/dL (13.0-17.5) Hematocrit 37.6 % (39.0-53.0) Mean Corpuscular Volume 87 fL (79-100) Mean Corpuscular Hemoglobin 29 pg (25-35) Mean Corpuscular Hemoglobin Concent 33 g/dL (31-37) Red Cell Distribution Width 13.6 % (11.5-14.5) Platelet Count 356 x10^3/uL (140-400) Neutrophils (%) (Auto) 56 % (31-73) Lymphocytes (%) (Auto) 27 % (24-48) Monocytes (%) (Auto) 8 % (0-9) Eosinophils (%) (Auto) 7 % (0-3) Basophils (%) (Auto) 1 % (0-3) Neutrophils # (Auto) 4.7 x10^3/uL (1.8-7.7) Lymphocytes # (Auto) 2.2 x10^3/uL (1.0-4.8) Monocytes # (Auto) 0.7 x10^3/uL (0.0-1.1) Eosinophils # (Auto) 0.6 x10^3/uL (0.0-0.7) Basophils # (Auto) 0.1 x10^3/uL (0.0-0.2) Sodium Level 143 mmol/L (136-145) Potassium Level 3.5 mmol/L (3.5-5.1) Chloride Level 107 mmol/L (98-107) Carbon Dioxide Level 28 mmol/L (21-32) Anion Gap 8 (6-14) Blood Urea Nitrogen 5 mg/dL (8-26) Creatinine 1.0 mg/dL (0.7-1.3) Estimated GFR (Cockcroft-Gault) 85.0 Glucose Level 109 mg/dL (70-99) Calcium Level 8.2 mg/dL (8.5-10.1) Assessment and Plan Assessmemt and Plan Problems Medical Problems: (1) Leukocytosis Status: Acute (2) Pulmonary abscess Status: Acute Comment Review of Relevant I have reviewed the following items alysa (where applicable) has been applied. Labs Laboratory Tests Test 12/21/19 02:00 12/22/19 05:00 12/22/19 06:00 White Blood Count 10.4 x10^3/uL (4.0-11.0) 8.3 x10^3/uL (4.0-11.0) Red Blood Count 4.28 x10^6/uL (4.30-5.70) 4.34 x10^6/uL (4.30-5.70) Hemoglobin 12.2 g/dL (13.0-17.5) 12.5 g/dL (13.0-17.5) Hematocrit 36.7 % (39.0-53.0) 37.6 % (39.0-53.0) Mean Corpuscular Volume 86 fL (79-100) 87 fL (79-100) Mean Corpuscular Hemoglobin 29 pg (25-35) 29 pg (25-35) Mean Corpuscular Hemoglobin Concent 33 g/dL (31-37) 33 g/dL (31-37) Red Cell Distribution Width 13.2 % (11.5-14.5) 13.6 % (11.5-14.5) Platelet Count 299 x10^3/uL (140-400) 356 x10^3/uL (140-400) Neutrophils (%) (Auto) 71 % (31-73) 56 % (31-73) Lymphocytes (%) (Auto) 16 % (24-48) 27 % (24-48) Monocytes (%) (Auto) 8 % (0-9) 8 % (0-9) Eosinophils (%) (Auto) 4 % (0-3) 7 % (0-3) Basophils (%) (Auto) 1 % (0-3) 1 % (0-3) Neutrophils # (Auto) 7.4 x10^3/uL (1.8-7.7) 4.7 x10^3/uL (1.8-7.7) Lymphocytes # (Auto) 1.7 x10^3/uL (1.0-4.8) 2.2 x10^3/uL (1.0-4.8) Monocytes # (Auto) 0.9 x10^3/uL (0.0-1.1) 0.7 x10^3/uL (0.0-1.1) Eosinophils # (Auto) 0.4 x10^3/uL (0.0-0.7) 0.6 x10^3/uL (0.0-0.7) Basophils # (Auto) 0.1 x10^3/uL (0.0-0.2) 0.1 x10^3/uL (0.0-0.2) Sodium Level 138 mmol/L (136-145) 143 mmol/L (136-145) Potassium Level 3.5 mmol/L (3.5-5.1) 3.5 mmol/L (3.5-5.1) Chloride Level 105 mmol/L (98-107) 107 mmol/L (98-107) Carbon Dioxide Level 23 mmol/L (21-32) 28 mmol/L (21-32) Anion Gap 10 (6-14) 8 (6-14) Blood Urea Nitrogen 7 mg/dL (8-26) 5 mg/dL (8-26) Creatinine 1.0 mg/dL (0.7-1.3) 1.0 mg/dL (0.7-1.3) Estimated GFR (Cockcroft-Gault) 85.0 85.0 Glucose Level 113 mg/dL (70-99) 109 mg/dL (70-99) Calcium Level 8.2 mg/dL (8.5-10.1) 8.2 mg/dL (8.5-10.1) Laboratory Tests Test 12/22/19 05:00 12/22/19 06:00 White Blood Count 8.3 x10^3/uL (4.0-11.0) Red Blood Count 4.34 x10^6/uL (4.30-5.70) Hemoglobin 12.5 g/dL (13.0-17.5) Hematocrit 37.6 % (39.0-53.0) Mean Corpuscular Volume 87 fL (79-100) Mean Corpuscular Hemoglobin 29 pg (25-35) Mean Corpuscular Hemoglobin Concent 33 g/dL (31-37) Red Cell Distribution Width 13.6 % (11.5-14.5) Platelet Count 356 x10^3/uL (140-400) Neutrophils (%) (Auto) 56 % (31-73) Lymphocytes (%) (Auto) 27 % (24-48) Monocytes (%) (Auto) 8 % (0-9) Eosinophils (%) (Auto) 7 % (0-3) Basophils (%) (Auto) 1 % (0-3) Neutrophils # (Auto) 4.7 x10^3/uL (1.8-7.7) Lymphocytes # (Auto) 2.2 x10^3/uL (1.0-4.8) Monocytes # (Auto) 0.7 x10^3/uL (0.0-1.1) Eosinophils # (Auto) 0.6 x10^3/uL (0.0-0.7) Basophils # (Auto) 0.1 x10^3/uL (0.0-0.2) Sodium Level 143 mmol/L (136-145) Potassium Level 3.5 mmol/L (3.5-5.1) Chloride Level 107 mmol/L (98-107) Carbon Dioxide Level 28 mmol/L (21-32) Anion Gap 8 (6-14) Blood Urea Nitrogen 5 mg/dL (8-26) Creatinine 1.0 mg/dL (0.7-1.3) Estimated GFR (Cockcroft-Gault) 85.0 Glucose Level 109 mg/dL (70-99) Calcium Level 8.2 mg/dL (8.5-10.1) Microbiology 12/19/19 Blood Culture - Preliminary, Resulted NO GROWTH AFTER 2 DAYS Medications Current Medications Ketorolac Tromethamine (Toradol 30mg Vial) 30 mg STK-MED ONCE .ROUTE ; Start 12/19/19 at 17:48; Stop 12/19/19 at 17:48; Status DC Ketorolac Tromethamine (Toradol 30mg Vial) 30 mg 1X ONCE IVP Last administered on 12/19/19at 17:54; Start 12/19/19 at 18:00; Stop 12/19/19 at 18:01; Status DC Sodium Chloride 1,000 ml @ 1,000 mls/hr 1X ONCE IV Last administered on 12/19/19at 17:54; Start 12/19/19 at 18:00; Stop 12/19/19 at 18:59; Status DC Iohexol (Omnipaque 300 Mg/ml) 75 ml 1X ONCE IV Last administered on 12/19/19at 18:23; Start 12/19/19 at 18:15; Stop 12/19/19 at 18:16; Status DC Info (CONTRAST GIVEN -- Rx MONITORING) 1 each PRN DAILY PRN MC SEE COMMENTS; Start 12/19/19 at 18:30; Stop 12/21/19 at 18:29; Status DC Sodium Chloride 1,000 ml @ 1,000 mls/hr 1X ONCE IV Last administered on 12/19/19at 18:57; Start 12/19/19 at 18:45; Stop 12/19/19 at 19:44; Status DC Ceftriaxone Sodium (Rocephin) 1 gm 1X ONCE IVP Last administered on 12/19/19at 18:56; Start 12/19/19 at 18:45; Stop 12/19/19 at 18:46; Status DC Piperacillin Sod/ Tazobactam Sod 3.375 gm/Sodium Chloride 50 ml @ 100 mls/hr 1X ONCE IV Last administered on 12/19/19at 19:40; Start 12/19/19 at 19:30; Stop 12/19/19 at 19:59; Status DC Vancomycin HCl 250 ml @ 250 mls/hr 1X ONCE IV Last administered on 12/19/19at 20:24; Start 12/19/19 at 19:30; Stop 12/19/19 at 20:29; Status DC Guaifenesin/ Codeine Phosphate (Robitussin Ac) 5 ml PRN Q6HRS PRN PO COUGH; Start 12/19/19 at 20:00; Stop 12/20/19 at 08:55; Status DC Ondansetron HCl (Zofran) 4 mg PRN Q8HRS PRN IV NAUSEA/VOMITING; Start 12/19/19 at 20:00; Stop 12/20/19 at 19:59; Status DC Morphine Sulfate (Morphine Sulfate) 2 mg PRN Q2HR PRN IV PAIN; Start 12/19/19 at 20:00; Stop 12/20/19 at 19:59; Status DC Sodium Chloride 1,000 ml @ 125 mls/hr Q8H IV Last administered on 12/20/19at 18:20; Start 12/19/19 at 19:50; Stop 12/20/19 at 19:49; Status DC Piperacillin Sod/ Tazobactam Sod (Zosyn Per Pharmacy) 1 each PRN DAILY PRN MC SEE COMMENTS; Start 12/19/19 at 20:30 Linezolid/Dextrose 300 ml @ 300 mls/hr Q12HR IV Last administered on 12/21/19at 20:43; Start 12/19/19 at 22:00 Piperacillin Sod/ Tazobactam Sod 4.5 gm/Sodium Chloride 100 ml @ 200 mls/hr Q6HRS IV Last administered on 12/22/19at 12:20; Start 12/20/19 at 00:00 Benzonatate (Tessalon Perle) 100 mg TID PO Last administered on 12/21/19at 20:42; Start 12/19/19 at 21:00 Guaifenesin/ Codeine Phosphate (Robitussin Ac) 10 ml PRN Q6HRS PRN PO COUGH Last administered on 12/21/19 08:58; Start 12/19/19 at 20:45 Guaifenesin (Mucinex) 600 mg BID PO Last administered on 12/21/19 20:42; Start 12/19/19 at 21:00 Acetaminophen (Tylenol) 650 mg Q6HRS ONCE PO Last administered on 12/19/19at 21:39; Start 12/20/19 at 00:00; Stop 12/19/19 at 21:41; Status DC Acetaminophen (Tylenol) 650 mg 1X ONCE PO Last administered on 12/20/19at 00:59; Start 12/20/19 at 00:00; Stop 12/20/19 at 00:01; Status DC Lactobacillus Rhamnosus (Culturelle) 1 cap BID PO Last administered on 12/21/19at 20:42; Start 12/20/19 at 09:00 Oseltamivir Phosphate (Tamiflu) 75 mg BID PO Last administered on 12/21/19at 20:42; Start 12/20/19 at 12:00; Stop 12/24/19 at 21:01 Tuberculin PPD (Tubersol) 0.1 ml 1X ONCE ID Last administered on 12/20/19at 15:35; Start 12/20/19 at 15:30; Stop 12/20/19 at 15:31; Status DC Sodium Chloride 1,000 ml @ 75 mls/hr 1X ONCE IV Last administered on 12/21/19at 18:34; Start 12/21/19 at 18:00; Stop 12/22/19 at 09:45; Status DC Acetaminophen/ Hydrocodone Bitart (Lortab 5/325) 1 tab PRN Q4HRS PRN PO MODERA TE PAIN Last administered on 12/21/19 20:42; Start 12/21/19 at 19:15 Zolpidem Tartrate (Ambien) 5 mg PRN QHS PRN PO INSOMNIA Last administered on 12/22/19at 00:17; Start 12/22/19 at 00:15 Docusate Sodium (Colace) 100 mg DAILY PO ; Start 12/22/19 at 15:00 Vitals/I & O Vital Sign - Last 24 Hours 12/21/19 12/21/19 12/21/19 12/21/19 15:00 18:26 20:00 20:42 Temp 98.3 100.0 98.3 100.0 Pulse 88 101 Resp 18 18 20 B/P (MAP) 130/72 (91) 137/65 (89) Pulse Ox 96 96 O2 Delivery Room Air Nasal Cannula Nasal Cannula Nasal Cannula O2 Flow Rate 4.0 4.0 4.0 4.0 12/21/19 12/21/19 12/21/19 12/22/19 20:42 21:42 23:34 08:00 Temp 99.9 98.7 99.9 98.7 Pulse 74 Resp 20 20 B/P (MAP) 125/59 (81) Pulse Ox 97 O2 Delivery Nasal Cannula Nasal Cannula Nasal Cannula O2 Flow Rate 4.0 4.0 4.0 12/22/19 11:00 Temp 98.1 98.1 Pulse 103 Resp 20 B/P (MAP) 121/69 (86) Pulse Ox 95 O2 Delivery Nasal Cannula O2 Flow Rate 4.0 Intake and Output 12/21/19 12/21/19 12/22/19 15:00 23:00 07:00 Intake Total 440 ml 1200 ml 400 ml Output Total 1350 ml 2050 ml 600 ml Balance -910 ml -850 ml -200 ml MOE CARRINGTON MD Dec 22, 2019 13:29
[2019-12-22 15:00] VITALS: BP 114/65
[2019-12-22] MEDS: DOCUSATE SODIUM 100 MG CAPSULE. PO SCH (15:41)
[2019-12-22] MEDS: HYDROcodone/APAP 5/325MG 1 TAB TABLET PO PRN ×2 (15:45→20:29)
[2019-12-22 19:54] VITALS: BP 122/59
[2019-12-22 22:35] VITALS: BP 116/59
[2019-12-23] MEDS: PIPERACILLIN/TAZOBACTAM 4.5 GM in IV NORMAL SALINE 100ML 100 ML IV SCH ×5 (00:04→23:18)
[2019-12-23 03:55] VITALS: BP 111/63
[2019-12-23 04:53] LABS: BASO # 0.1 x10^3/uL (0.0-0.2); BASO % 1 % (0-3); EOS # 0.5 x10^3/uL (0.0-0.7); EOS % 6 % (0-3); HEMATOCRIT 37.3 % (39.0-53.0); HEMOGLOBIN 12.6 g/dL (13.0-17.5); LYMPH # 2.5 x10^3/uL (1.0-4.8); LYMPH % 31 % (24-48); MEAN CORPUSCULAR HEMOGLOBIN 29 pg (25-35); MEAN CORPUSCULAR HGB CONC 34 g/dL (31-37); MEAN CORPUSCULAR VOLUME 85 fL (79-100); MONO # 0.7 x10^3/uL (0.0-1.1); MONO % 9 % (0-9); NEUT # 4.1 x10^3/uL (1.8-7.7); NEUT % 52 % (31-73); PLATELET COUNT 363 x10^3/uL (140-400); RED BLOOD COUNT 4.37 x10^6/uL (4.30-5.70); RED CELL DISTRIBUTION WIDTH 13.4 % (11.5-14.5); WHITE BLOOD COUNT 7.9 x10^3/uL (4.0-11.0)
[2019-12-23 05:07] LABS: CREATININE 1.1 mg/dL (0.7-1.3); GFR 76.2; POTASSIUM 3.5 mmol/L (3.5-5.1)
[2019-12-23 07:00] VITALS: BP 127/72
[2019-12-23] MEDS: LACTOBACILLUS RHAMNOSUS GG 1 CAPSULE. PO SCH ×2 (08:48→21:03)
[2019-12-23] MEDS: DOCUSATE SODIUM 100 MG CAPSULE. PO SCH (08:48)
[2019-12-23] MEDS: BENZONATATE 100 MG CAPSULE. PO SCH ×3 (08:49→21:03)
[2019-12-23] MEDS: OSELTAMIVIR 75 MG CAPSULE PO SCH ×2 (08:49→21:03)
[2019-12-23] MEDS: HYDROcodone/APAP 5/325MG 1 TAB TABLET PO PRN ×2 (08:56→21:04)
--- NOTE | 2019-12-23 10:36 | PDOC ---
PULMONARY PROGRESS NOTES Subjective T max 100. is weak, sob better, has cough, has dental caries Vitals Vital Signs Date Time Temp Pulse Resp B/P (MAP) Pulse Ox O2 Delivery O2 Flow Rate FiO2 12/23/19 09:56 18 91 Nasal Cannula 4.0 12/23/19 07:00 98.6 97 127/72 (90) 98.6 ROS: No Nausea General: Alert, No acute distress HEENT: Other (nc at perrl) Lungs: Crackles Cardiovascular: S1, S2 Abdomen: Soft, Non-tender Neuro Exam: Alert, Oriented Extremities: No Edema Skin: Warm Labs Laboratory Tests Test 12/22/19 05:00 12/22/19 06:00 12/23/19 04:20 White Blood Count 8.3 x10^3/uL (4.0-11.0) 7.9 x10^3/uL (4.0-11.0) Red Blood Count 4.34 x10^6/uL (4.30-5.70) 4.37 x10^6/uL (4.30-5.70) Hemoglobin 12.5 g/dL (13.0-17.5) 12.6 g/dL (13.0-17.5) Hematocrit 37.6 % (39.0-53.0) 37.3 % (39.0-53.0) Mean Corpuscular Volume 87 fL (79-100) 85 fL (79-100) Mean Corpuscular Hemoglobin 29 pg (25-35) 29 pg (25-35) Mean Corpuscular Hemoglobin Concent 33 g/dL (31-37) 34 g/dL (31-37) Red Cell Distribution Width 13.6 % (11.5-14.5) 13.4 % (11.5-14.5) Platelet Count 356 x10^3/uL (140-400) 363 x10^3/uL (140-400) Neutrophils (%) (Auto) 56 % (31-73) 52 % (31-73) Lymphocytes (%) (Auto) 27 % (24-48) 31 % (24-48) Monocytes (%) (Auto) 8 % (0-9) 9 % (0-9) Eosinophils (%) (Auto) 7 % (0-3) 6 % (0-3) Basophils (%) (Auto) 1 % (0-3) 1 % (0-3) Neutrophils # (Auto) 4.7 x10^3/uL (1.8-7.7) 4.1 x10^3/uL (1.8-7.7) Lymphocytes # (Auto) 2.2 x10^3/uL (1.0-4.8) 2.5 x10^3/uL (1.0-4.8) Monocytes # (Auto) 0.7 x10^3/uL (0.0-1.1) 0.7 x10^3/uL (0.0-1.1) Eosinophils # (Auto) 0.6 x10^3/uL (0.0-0.7) 0.5 x10^3/uL (0.0-0.7) Basophils # (Auto) 0.1 x10^3/uL (0.0-0.2) 0.1 x10^3/uL (0.0-0.2) Sodium Level 143 mmol/L (136-145) 140 mmol/L (136-145) Potassium Level 3.5 mmol/L (3.5-5.1) 3.5 mmol/L (3.5-5.1) Chloride Level 107 mmol/L (98-107) 106 mmol/L (98-107) Carbon Dioxide Level 28 mmol/L (21-32) 26 mmol/L (21-32) Anion Gap 8 (6-14) 8 (6-14) Blood Urea Nitrogen 5 mg/dL (8-26) 8 mg/dL (8-26) Creatinine 1.0 mg/dL (0.7-1.3) 1.1 mg/dL (0.7-1.3) Estimated GFR (Cockcroft-Gault) 85.0 76.2 Glucose Level 109 mg/dL (70-99) 99 mg/dL (70-99) Calcium Level 8.2 mg/dL (8.5-10.1) 8.0 mg/dL (8.5-10.1) Laboratory Tests Test 12/23/19 04:20 White Blood Count 7.9 x10^3/uL (4.0-11.0) Red Blood Count 4.37 x10^6/uL (4.30-5.70) Hemoglobin 12.6 g/dL (13.0-17.5) Hematocrit 37.3 % (39.0-53.0) Mean Corpuscular Volume 85 fL (79-100) Mean Corpuscular Hemoglobin 29 pg (25-35) Mean Corpuscular Hemoglobin Concent 34 g/dL (31-37) Red Cell Distribution Width 13.4 % (11.5-14.5) Platelet Count 363 x10^3/uL (140-400) Neutrophils (%) (Auto) 52 % (31-73) Lymphocytes (%) (Auto) 31 % (24-48) Monocytes (%) (Auto) 9 % (0-9) Eosinophils (%) (Auto) 6 % (0-3) Basophils (%) (Auto) 1 % (0-3) Neutrophils # (Auto) 4.1 x10^3/uL (1.8-7.7) Lymphocytes # (Auto) 2.5 x10^3/uL (1.0-4.8) Monocytes # (Auto) 0.7 x10^3/uL (0.0-1.1) Eosinophils # (Auto) 0.5 x10^3/uL (0.0-0.7) Basophils # (Auto) 0.1 x10^3/uL (0.0-0.2) Sodium Level 140 mmol/L (136-145) Potassium Level 3.5 mmol/L (3.5-5.1) Chloride Level 106 mmol/L (98-107) Carbon Dioxide Level 26 mmol/L (21-32) Anion Gap 8 (6-14) Blood Urea Nitrogen 8 mg/dL (8-26) Creatinine 1.1 mg/dL (0.7-1.3) Estimated GFR (Cockcroft-Gault) 76.2 Glucose Level 99 mg/dL (70-99) Calcium Level 8.0 mg/dL (8.5-10.1) Impression . 1. Acute hypoxic respiratory failure secondary to necrotizing pneumonia/lung abscess. Clinically, unlikely tuberculosis and also unlikely pulmonary vasculitis. Vaping may be a risk factor. 2. Possible underlying chronic obstructive pulmonary disease, smoked for 16 years. 3. History of spontaneous pneumothorax on the right side 10 years ago, requiring chest tube and no other surgical intervention. 4. Abnormal CT chest consistent with left upper lobe lung abscess and pneumonia along with emphysematous blebs and changes in the upper lobes. 5. Influenza Plan . 1. Continue present oxygen. 2. Continue broad-spectrum antibiotics.per id, Zyvox, Zosyn and Tamiflu , will check hiv, pt agreed, has dental caries, needs to be addressed/treated 3. fu sputum for C and S. 4. fu blood cultures. 5. Follow ID recommendations. 6. Obtain PPD/or quantiferon gold, defer to id 7. We will monitor the response to treatment. 8. If symptoms do not improve, we will consider bronchoscopy. 9. repeat ct chest in 4-6 weeks Discussed with RN and pt ZENOBIA JUNG MD Dec 23, 2019 10:36
[2019-12-23 11:00] VITALS: BP 117/69
--- NOTE | 2019-12-23 11:23 | PDOC ---
Infectious Disease Note Subjective Subjective Feeling about the same Left-sided CP w/ frequent coughing fits and No increase O2 demands, remains on 4L Denies SOA at rest Denies fevers/chills last 24 hours Denies N/V/D Says been walking about the room and showering ROS ROS per HPI Vital Sign Vital Signs Vital Signs Date Time Temp Pulse Resp B/P (MAP) Pulse Ox O2 Delivery O2 Flow Rate FiO2 12/23/19 09:56 18 91 Nasal Cannula 4.0 12/23/19 07:00 98.6 97 127/72 (90) 98.6 Physical Exam PHYSICAL EXAM GENERAL: Propped up in bed, alert and watching TV HEENT: Oral cavity clear NECK: Supple, no JVP, no lymphadenopathy. LUNGS: Clear. HEART: S1, S2 regular. ABDOMEN: Soft and nontender, BS active EXTREMITIES: No edema or cyanosis. SKIN: Warm to touch. No signs of rash NEUROLOGIC: Alert, awake and appropriate. No focal neurologic deficit. PIV ok Labs Lab Laboratory Tests Test 12/23/19 04:20 White Blood Count 7.9 x10^3/uL (4.0-11.0) Red Blood Count 4.37 x10^6/uL (4.30-5.70) Hemoglobin 12.6 g/dL (13.0-17.5) Hematocrit 37.3 % (39.0-53.0) Mean Corpuscular Volume 85 fL (79-100) Mean Corpuscular Hemoglobin 29 pg (25-35) Mean Corpuscular Hemoglobin Concent 34 g/dL (31-37) Red Cell Distribution Width 13.4 % (11.5-14.5) Platelet Count 363 x10^3/uL (140-400) Neutrophils (%) (Auto) 52 % (31-73) Lymphocytes (%) (Auto) 31 % (24-48) Monocytes (%) (Auto) 9 % (0-9) Eosinophils (%) (Auto) 6 % (0-3) Basophils (%) (Auto) 1 % (0-3) Neutrophils # (Auto) 4.1 x10^3/uL (1.8-7.7) Lymphocytes # (Auto) 2.5 x10^3/uL (1.0-4.8) Monocytes # (Auto) 0.7 x10^3/uL (0.0-1.1) Eosinophils # (Auto) 0.5 x10^3/uL (0.0-0.7) Basophils # (Auto) 0.1 x10^3/uL (0.0-0.2) Sodium Level 140 mmol/L (136-145) Potassium Level 3.5 mmol/L (3.5-5.1) Chloride Level 106 mmol/L (98-107) Carbon Dioxide Level 26 mmol/L (21-32) Anion Gap 8 (6-14) Blood Urea Nitrogen 8 mg/dL (8-26) Creatinine 1.1 mg/dL (0.7-1.3) Estimated GFR (Cockcroft-Gault) 76.2 Glucose Level 99 mg/dL (70-99) Calcium Level 8.0 mg/dL (8.5-10.1) Micro SPUTUM CULTURE-LC PENDING BLOOD CULTURE Preliminary NO GROWTH AFTER 3 DAYS Objective Assessment Left upper lobe lung abscess. Fever. Leukocytosis - better Influenza (urgent care) Vaping Plan Plan of Care Zyvox, Zosyn and Tamiflu f/u cultures Might need a CT drainage, biopsy and/or bronchoscopy. Droplet precautions Patient seen and examined. Chart reviewed in detail. Case discussed with ANTENNA ENGINEER agree with above plan. GOGO HERNANDEZ APRN Dec 23, 2019 11:23 NIESHA CERVANTES MD Dec 23, 2019 21:40
--- NOTE | 2019-12-23 13:22 | RAD ---
CHEST PA LATERAL History: Reevaluate pulmonary abscess. Comparison: CT December 19, 2019 Findings: Left midlung cavitary mass measures approximately 5.2 x 4.2 cm, stable to decreased in size compared to prior allowing for differences in technique. Increased left mid and basilar opacities. Small left pleural effusion. Asymmetric right apical pleural-parenchymal scarring with bullous changes, unchanged. Postop changes right lung apex. Patchy right basilar opacity. Impression: 1. Cavitary left midlung mass, stable to decreased in size compared to prior allowing for differences in technique. 2. Increased left mid and basilar opacities, may represent worsening adjacent pneumonia. 3. Increased small left pleural effusion. 4. Mild right basilar atelectasis. Electronically signed by: Dougie Leblanc DO (12/23/2019 1:19 PM) [id number]
--- NOTE | 2019-12-23 13:34 | PDOC ---
[employer] PROGRESS NOTE Chief Complaint Chief Complaint pulmonary abscess sepsis acute hypoxic repsiratory failure isolation for flu, r/o TB vaping related lung injury History of Present Illness History of Present Illness [id number] Patient seen and examined Discussed with Dr. Murphy She wants to check HIV antibodies and I agree Chart reviewed in isolation for Flu, TB skin test to be done today, looks ok so far pain better, HR better 12/20, cont current, symptoms better cough, chest pain with deep breaths, vitals better 12/20/19 Pt seen and examined laying in bed. Says he was diagnosed with flu at urgent care few days ago. Discussed chart with RN. Will await rec from pulm and ID regarding drainage. Vitals/I&O Vitals/I&O: Vital Signs Date Time Temp Pulse Resp B/P (MAP) Pulse Ox O2 Delivery O2 Flow Rate FiO2 12/23/19 11:00 98.2 84 18 117/69 (85) 93 Room Air 98.2 12/23/19 09:56 4.0 I & O 12/22/19 12/22/19 12/23/19 15:00 23:00 07:00 Intake Total 275 ml 300 ml Output Total 800 ml 1500 ml 600 ml Balance -800 ml -1225 ml -300 ml Physical Exam Physical Exam: GENERAL: Propped up in bed, alert and watching TV HEENT: Oral cavity clear NECK: Supple, no JVP, no lymphadenopathy. LUNGS: Clear. HEART: S1, S2 regular. ABDOMEN: Soft and nontender, BS active EXTREMITIES: No edema or cyanosis. SKIN: Warm to touch. No signs of rash NEUROLOGIC: Alert, awake and appropriate. No focal neurologic deficit. PIV ok General: Alert, Oriented X3, Cooperative, moderate distress Lungs: Crackles Abdomen: Normal bowel sounds, Soft Extremities: No clubbing, No cyanosis, No edema Skin: No rashes, No significant lesion Labs Labs: Laboratory Tests Test 12/23/19 04:20 White Blood Count 7.9 x10^3/uL (4.0-11.0) Red Blood Count 4.37 x10^6/uL (4.30-5.70) Hemoglobin 12.6 g/dL (13.0-17.5) Hematocrit 37.3 % (39.0-53.0) Mean Corpuscular Volume 85 fL (79-100) Mean Corpuscular Hemoglobin 29 pg (25-35) Mean Corpuscular Hemoglobin Concent 34 g/dL (31-37) Red Cell Distribution Width 13.4 % (11.5-14.5) Platelet Count 363 x10^3/uL (140-400) Neutrophils (%) (Auto) 52 % (31-73) Lymphocytes (%) (Auto) 31 % (24-48) Monocytes (%) (Auto) 9 % (0-9) Eosinophils (%) (Auto) 6 % (0-3) Basophils (%) (Auto) 1 % (0-3) Neutrophils # (Auto) 4.1 x10^3/uL (1.8-7.7) Lymphocytes # (Auto) 2.5 x10^3/uL (1.0-4.8) Monocytes # (Auto) 0.7 x10^3/uL (0.0-1.1) Eosinophils # (Auto) 0.5 x10^3/uL (0.0-0.7) Basophils # (Auto) 0.1 x10^3/uL (0.0-0.2) Sodium Level 140 mmol/L (136-145) Potassium Level 3.5 mmol/L (3.5-5.1) Chloride Level 106 mmol/L (98-107) Carbon Dioxide Level 26 mmol/L (21-32) Anion Gap 8 (6-14) Blood Urea Nitrogen 8 mg/dL (8-26) Creatinine 1.1 mg/dL (0.7-1.3) Estimated GFR (Cockcroft-Gault) 76.2 Glucose Level 99 mg/dL (70-99) Calcium Level 8.0 mg/dL (8.5-10.1) Assessment and Plan Assessmemt and Plan Problems Medical Problems: (1) Leukocytosis Status: Acute (2) Pulmonary abscess Status: Acute Pulmonary abscess sepsis recent influenza-possible superinfection with pulmonary abscess. Plan Continue abx Continue tamiflu 75mg BID for recent flu dx Trend labs Check an HIV antibodies per Dr. Murphy Continue inpt treatment Home meds DVT prophylaxis Full code Comment Review of Relevant I have reviewed the following items alysa (where applicable) has been applied. Medications: Current Medications Medications (Trade) Dose Ordered Sig/Sonido Route PRN Reason Start Time Stop Time Status Last Admin Dose Admin Docusate Sodium (Colace) 100 mg DAILY PO 12/22/19 15:00 12/23/19 08:48 CATIE CHACKO III DO Dec 23, 2019 13:34
[2019-12-23 15:00] VITALS: BP 116/66
[2019-12-23 19:45] VITALS: BP 123/74
[2019-12-23 22:18] VITALS: BP 122/66
[2019-12-23] MEDS: ZOLPIDEM 5 MG TABLET. PO PRN (23:17)
[2019-12-24 03:48] VITALS: BP 121/62
[2019-12-24 04:28] LABS: BASO # 0.1 x10^3/uL (0.0-0.2); BASO % 1 % (0-3); EOS # 0.5 x10^3/uL (0.0-0.7); EOS % 6 % (0-3); HEMOGLOBIN 12.9 g/dL (13.0-17.5); LYMPH # 2.5 x10^3/uL (1.0-4.8); LYMPH % 31 % (24-48); MEAN CORPUSCULAR HEMOGLOBIN 29 pg (25-35); MEAN CORPUSCULAR HGB CONC 34 g/dL (31-37); MEAN CORPUSCULAR VOLUME 85 fL (79-100); MONO # 0.7 x10^3/uL (0.0-1.1); MONO % 9 % (0-9); NEUT # 4.2 x10^3/uL (1.8-7.7); NEUT % 53 % (31-73); PLATELET COUNT 400 x10^3/uL (140-400); RED BLOOD COUNT 4.47 x10^6/uL (4.30-5.70); RED CELL DISTRIBUTION WIDTH 13.3 % (11.5-14.5); WHITE BLOOD COUNT 7.9 x10^3/uL (4.0-11.0)
[2019-12-24 04:45] LABS: CALCIUM 8.2 mg/dL (8.5-10.1); CREATININE 1.1 mg/dL (0.7-1.3); GFR 76.2; POTASSIUM 3.5 mmol/L (3.5-5.1)
[2019-12-24] MEDS: PIPERACILLIN/TAZOBACTAM 4.5 GM in IV NORMAL SALINE 100ML 100 ML IV SCH ×3 (06:19→18:05)
[2019-12-24 07:00] VITALS: BP 121/74
--- NOTE | 2019-12-24 08:35 | PDOC ---
PULMONARY PROGRESS NOTES Subjective PT FEELS BETTER Vitals Vital Signs Date Time Temp Pulse Resp B/P (MAP) Pulse Ox O2 Delivery O2 Flow Rate FiO2 12/24/19 07:00 98.0 88 20 121/74 (90) 93 Room Air 98.0 12/23/19 09:56 4.0 General: Alert, No acute distress Lungs: Crackles Cardiovascular: S1, S2 Abdomen: Soft, Non-tender Neuro Exam: Alert, Oriented Extremities: No Edema Skin: Warm Labs Laboratory Tests Test 12/23/19 04:20 12/24/19 03:45 12/24/19 04:10 White Blood Count 7.9 x10^3/uL (4.0-11.0) 7.9 x10^3/uL (4.0-11.0) Red Blood Count 4.37 x10^6/uL (4.30-5.70) 4.47 x10^6/uL (4.30-5.70) Hemoglobin 12.6 g/dL (13.0-17.5) 12.9 g/dL (13.0-17.5) Hematocrit 37.3 % (39.0-53.0) 38.0 % (39.0-53.0) Mean Corpuscular Volume 85 fL (79-100) 85 fL (79-100) Mean Corpuscular Hemoglobin 29 pg (25-35) 29 pg (25-35) Mean Corpuscular Hemoglobin Concent 34 g/dL (31-37) 34 g/dL (31-37) Red Cell Distribution Width 13.4 % (11.5-14.5) 13.3 % (11.5-14.5) Platelet Count 363 x10^3/uL (140-400) 400 x10^3/uL (140-400) Neutrophils (%) (Auto) 52 % (31-73) 53 % (31-73) Lymphocytes (%) (Auto) 31 % (24-48) 31 % (24-48) Monocytes (%) (Auto) 9 % (0-9) 9 % (0-9) Eosinophils (%) (Auto) 6 % (0-3) 6 % (0-3) Basophils (%) (Auto) 1 % (0-3) 1 % (0-3) Neutrophils # (Auto) 4.1 x10^3/uL (1.8-7.7) 4.2 x10^3/uL (1.8-7.7) Lymphocytes # (Auto) 2.5 x10^3/uL (1.0-4.8) 2.5 x10^3/uL (1.0-4.8) Monocytes # (Auto) 0.7 x10^3/uL (0.0-1.1) 0.7 x10^3/uL (0.0-1.1) Eosinophils # (Auto) 0.5 x10^3/uL (0.0-0.7) 0.5 x10^3/uL (0.0-0.7) Basophils # (Auto) 0.1 x10^3/uL (0.0-0.2) 0.1 x10^3/uL (0.0-0.2) Sodium Level 140 mmol/L (136-145) 142 mmol/L (136-145) Potassium Level 3.5 mmol/L (3.5-5.1) 3.5 mmol/L (3.5-5.1) Chloride Level 106 mmol/L (98-107) 108 mmol/L (98-107) Carbon Dioxide Level 26 mmol/L (21-32) 28 mmol/L (21-32) Anion Gap 8 (6-14) 6 (6-14) Blood Urea Nitrogen 8 mg/dL (8-26) 8 mg/dL (8-26) Creatinine 1.1 mg/dL (0.7-1.3) 1.1 mg/dL (0.7-1.3) Estimated GFR (Cockcroft-Gault) 76.2 76.2 Glucose Level 99 mg/dL (70-99) 105 mg/dL (70-99) Calcium Level 8.0 mg/dL (8.5-10.1) 8.2 mg/dL (8.5-10.1) Laboratory Tests Test 12/24/19 03:45 12/24/19 04:10 White Blood Count 7.9 x10^3/uL (4.0-11.0) Red Blood Count 4.47 x10^6/uL (4.30-5.70) Hemoglobin 12.9 g/dL (13.0-17.5) Hematocrit 38.0 % (39.0-53.0) Mean Corpuscular Volume 85 fL (79-100) Mean Corpuscular Hemoglobin 29 pg (25-35) Mean Corpuscular Hemoglobin Concent 34 g/dL (31-37) Red Cell Distribution Width 13.3 % (11.5-14.5) Platelet Count 400 x10^3/uL (140-400) Neutrophils (%) (Auto) 53 % (31-73) Lymphocytes (%) (Auto) 31 % (24-48) Monocytes (%) (Auto) 9 % (0-9) Eosinophils (%) (Auto) 6 % (0-3) Basophils (%) (Auto) 1 % (0-3) Neutrophils # (Auto) 4.2 x10^3/uL (1.8-7.7) Lymphocytes # (Auto) 2.5 x10^3/uL (1.0-4.8) Monocytes # (Auto) 0.7 x10^3/uL (0.0-1.1) Eosinophils # (Auto) 0.5 x10^3/uL (0.0-0.7) Basophils # (Auto) 0.1 x10^3/uL (0.0-0.2) Sodium Level 142 mmol/L (136-145) Potassium Level 3.5 mmol/L (3.5-5.1) Chloride Level 108 mmol/L (98-107) Carbon Dioxide Level 28 mmol/L (21-32) Anion Gap 6 (6-14) Blood Urea Nitrogen 8 mg/dL (8-26) Creatinine 1.1 mg/dL (0.7-1.3) Estimated GFR (Cockcroft-Gault) 76.2 Glucose Level 105 mg/dL (70-99) Calcium Level 8.2 mg/dL (8.5-10.1) Impression . 1. Acute hypoxic respiratory failure secondary to necrotizing pneumonia/lung abscess. Clinically, unlikely tuberculosis and also unlikely pulmonary vasculitis. Vaping may be a risk factor. 2. Possible underlying chronic obstructive pulmonary disease, smoked for 16 years. 3. History of spontaneous pneumothorax on the right side 10 years ago, requiring chest tube and no other surgical intervention. 4. Abnormal CT chest consistent with left upper lobe lung abscess and pneumonia along with emphysematous blebs and changes in the upper lobes. 5. Influenza Impression: 1. Cavitary left midlung mass, stable to decreased in size compared to prior allowing for differences in technique. 2. Increased left mid and basilar opacities, may represent worsening adjacent pneumonia. 3. Increased small left pleural effusion. 4. Mild right basilar atelectasis. Plan . HIV NEGATIVE CONTINUE ANTI BX PER ID CXR IS BETTER REPEAT CT IN 6 WEEKS SPENCER CHASE MD Dec 24, 2019 08:35
[2019-12-24] MEDS: DOCUSATE SODIUM 100 MG CAPSULE. PO SCH (09:00)
[2019-12-24] MEDS: LACTOBACILLUS RHAMNOSUS GG 1 CAPSULE. PO SCH ×2 (09:18→21:38)
[2019-12-24] MEDS: OSELTAMIVIR 75 MG CAPSULE PO SCH ×2 (09:18→21:29)
[2019-12-24] MEDS: BENZONATATE 100 MG CAPSULE. PO SCH ×3 (09:18→21:29)
--- NOTE | 2019-12-24 10:15 | PDOC ---
Infectious Disease Note Subjective: Subjective Pt feels a little better has cough with yellow sputum Denies SOA at rest Denies fevers/chills last 24 hours Denies N/V/D Vital Signs: Vital Signs Vital Signs Date Time Temp Pulse Resp B/P (MAP) Pulse Ox O2 Delivery O2 Flow Rate FiO2 12/24/19 07:00 98.0 88 20 121/74 (90) 93 Room Air 98.0 12/23/19 09:56 4.0 Physical Exam: PHYSICAL EXAM GENERAL: Propped up in bed, alert and watching TV HEENT: Oral cavity clear NECK: Supple, no JVP, no lymphadenopathy. LUNGS: Clear. HEART: S1, S2 regular. ABDOMEN: Soft and nontender, BS active EXTREMITIES: No edema or cyanosis. SKIN: Warm to touch. No signs of rash NEUROLOGIC: Alert, awake and appropriate. No focal neurologic deficit. PIV ok Medications: Inpatient Meds: Current Medications Medications (Trade) Dose Ordered Sig/Sonido Start Time Stop Time Status Last Admin Dose Admin Acetaminophen (Tylenol) 650 mg 1X ONCE 12/20/19 00:00 12/20/19 00:01 DC 12/20/19 00:59 650 MG Acetaminophen/ Hydrocodone Bitart (Lortab 5/325) 1 tab PRN Q4HRS PRN 12/21/19 19:15 12/23/19 21:04 1 TAB Benzonatate (Tessalon Perle) 100 mg TID 12/19/19 21:00 12/24/19 09:18 100 MG Ceftriaxone Sodium (Rocephin) 1 gm 1X ONCE 12/19/19 18:45 12/19/19 18:46 DC 12/19/19 18:56 1 GM Docusate Sodium (Colace) 100 mg DAILY 12/22/19 15:00 12/23/19 08:48 100 MG Guaifenesin (Mucinex) 600 mg BID 12/19/19 21:00 12/24/19 09:18 600 MG Guaifenesin/ Codeine Phosphate (Robitussin Ac) 10 ml PRN Q6HRS PRN 12/19/19 20:45 12/21/19 08:58 10 ML Info (CONTRAST GIVEN -- Rx MONITORING) 1 each PRN DAILY PRN 12/19/19 18:30 12/21/19 18:29 DC Iohexol (Omnipaque 300 Mg/ml) 75 ml 1X ONCE 12/19/19 18:15 12/19/19 18:16 DC 12/19/19 18:23 75 ML Ketorolac Tromethamine (Toradol 30mg Vial) 30 mg 1X ONCE 12/19/19 18:00 12/19/19 18:01 DC 12/19/19 17:54 30 MG Lactobacillus Rhamnosus (Culturelle) 1 cap BID 12/20/19 09:00 12/24/19 09:18 1 CAP Linezolid/Dextrose 300 ml @ 300 mls/hr Q12HR 12/19/19 22:00 12/24/19 09:18 300 MLS/HR Morphine Sulfate (Morphine Sulfate) 2 mg PRN Q2HR PRN 12/19/19 20:00 12/20/19 19:59 DC Ondansetron HCl (Zofran) 4 mg PRN Q8HRS PRN 12/19/19 20:00 12/20/19 19:59 DC Oseltamivir Phosphate (Tamiflu) 75 mg BID 12/20/19 12:00 12/24/19 21:01 12/24/19 09:18 75 MG Piperacillin Sod/ Tazobactam Sod (Zosyn Per Pharmacy) 1 each PRN DAILY PRN 12/19/19 20:30 Piperacillin Sod/ Tazobactam Sod 3.375 gm/Sodium Chloride 50 ml @ 100 mls/hr 1X ONCE 12/19/19 19:30 12/19/19 19:59 DC 12/19/19 19:40 100 MLS/HR Piperacillin Sod/ Tazobactam Sod 4.5 gm/Sodium Chloride 100 ml @ 200 mls/hr Q6HRS 12/20/19 00:00 12/24/19 06:19 200 MLS/HR Sodium Chloride 1,000 ml @ 75 mls/hr 1X ONCE 12/21/19 18:00 12/22/19 09:45 DC 12/21/19 18:34 75 MLS/HR Tuberculin PPD (Tubersol) 0.1 ml 1X ONCE 12/20/19 15:30 12/20/19 15:31 DC 12/20/19 15:35 0.1 ML Vancomycin HCl 250 ml @ 250 mls/hr 1X ONCE 12/19/19 19:30 12/19/19 20:29 DC 12/19/19 20:24 250 MLS/HR Zolpidem Tartrate (Ambien) 5 mg PRN QHS PRN 12/22/19 00:15 12/23/19 23:17 5 MG Labs: Lab Laboratory Tests Test 12/24/19 03:45 12/24/19 04:10 White Blood Count 7.9 x10^3/uL (4.0-11.0) Red Blood Count 4.47 x10^6/uL (4.30-5.70) Hemoglobin 12.9 g/dL (13.0-17.5) Hematocrit 38.0 % (39.0-53.0) Mean Corpuscular Volume 85 fL (79-100) Mean Corpuscular Hemoglobin 29 pg (25-35) Mean Corpuscular Hemoglobin Concent 34 g/dL (31-37) Red Cell Distribution Width 13.3 % (11.5-14.5) Platelet Count 400 x10^3/uL (140-400) Neutrophils (%) (Auto) 53 % (31-73) Lymphocytes (%) (Auto) 31 % (24-48) Monocytes (%) (Auto) 9 % (0-9) Eosinophils (%) (Auto) 6 % (0-3) Basophils (%) (Auto) 1 % (0-3) Neutrophils # (Auto) 4.2 x10^3/uL (1.8-7.7) Lymphocytes # (Auto) 2.5 x10^3/uL (1.0-4.8) Monocytes # (Auto) 0.7 x10^3/uL (0.0-1.1) Eosinophils # (Auto) 0.5 x10^3/uL (0.0-0.7) Basophils # (Auto) 0.1 x10^3/uL (0.0-0.2) Sodium Level 142 mmol/L (136-145) Potassium Level 3.5 mmol/L (3.5-5.1) Chloride Level 108 mmol/L (98-107) Carbon Dioxide Level 28 mmol/L (21-32) Anion Gap 6 (6-14) Blood Urea Nitrogen 8 mg/dL (8-26) Creatinine 1.1 mg/dL (0.7-1.3) Estimated GFR (Cockcroft-Gault) 76.2 Glucose Level 105 mg/dL (70-99) Calcium Level 8.2 mg/dL (8.5-10.1) Objective: Assessment: Left upper lobe lung abscess. Fever. Leukocytosis and bandemia - better Influenza (urgent care) Vaping Plan: Plan of Care Zyvox, Zosyn and Tamiflu f/u cultures Might need a CT drainage, biopsy and/or bronchoscopy. Droplet precautions d/w QUINN TIRADO MD Dec 24, 2019 10:15
[2019-12-24 11:00] VITALS: BP 128/75
--- NOTE | 2019-12-24 13:00 | PDOC ---
[facility] [facility] PROGRESS NOTE Chief Complaint Chief Complaint pulmonary abscess sepsis acute hypoxic repsiratory failure isolation for flu, r/o TB vaping related lung injury History of Present Illness History of Present Illness [id number] Patient seen and examined Discussed with case management Discussed with RN Plan is to continue IV antibiotics [id number] Patient seen and examined Discussed with Dr. Murphy She wants to check HIV antibodies and I agree Chart reviewed in isolation for Flu, TB skin test to be done today, looks ok so far pain better, HR better 12/20, cont current, symptoms better cough, chest pain with deep breaths, vitals better 12/20/19 Pt seen and examined laying in bed. Says he was diagnosed with flu at urgent care few days ago. Discussed chart with RN. Will await rec from pulm and ID regarding drainage. Vitals/I&O Vitals/I&O: Vital Signs Date Time Temp Pulse Resp B/P (MAP) Pulse Ox O2 Delivery O2 Flow Rate FiO2 12/24/19 11:00 97.7 92 20 128/75 (92) 96 Room Air 97.7 12/23/19 09:56 4.0 I & O 12/23/19 12/23/19 12/24/19 15:00 23:00 07:00 Intake Total 500 ml 850 ml Output Total 1625 ml 500 ml 650 ml Balance -1125 ml 350 ml -650 ml Physical Exam Physical Exam: GENERAL: Propped up in bed, alert and watching TV HEENT: Oral cavity clear NECK: Supple, no JVP, no lymphadenopathy. LUNGS: Clear. HEART: S1, S2 regular. ABDOMEN: Soft and nontender, BS active EXTREMITIES: No edema or cyanosis. SKIN: Warm to touch. No signs of rash NEUROLOGIC: Alert, awake and appropriate. No focal neurologic deficit. PIV ok General: Alert, Oriented X3, Cooperative, moderate distress Lungs: Crackles Abdomen: Normal bowel sounds, Soft Extremities: No clubbing, No cyanosis, No edema Skin: No rashes, No significant lesion Labs Labs: Laboratory Tests Test 12/24/19 03:45 12/24/19 04:10 White Blood Count 7.9 x10^3/uL (4.0-11.0) Red Blood Count 4.47 x10^6/uL (4.30-5.70) Hemoglobin 12.9 g/dL (13.0-17.5) Hematocrit 38.0 % (39.0-53.0) Mean Corpuscular Volume 85 fL (79-100) Mean Corpuscular Hemoglobin 29 pg (25-35) Mean Corpuscular Hemoglobin Concent 34 g/dL (31-37) Red Cell Distribution Width 13.3 % (11.5-14.5) Platelet Count 400 x10^3/uL (140-400) Neutrophils (%) (Auto) 53 % (31-73) Lymphocytes (%) (Auto) 31 % (24-48) Monocytes (%) (Auto) 9 % (0-9) Eosinophils (%) (Auto) 6 % (0-3) Basophils (%) (Auto) 1 % (0-3) Neutrophils # (Auto) 4.2 x10^3/uL (1.8-7.7) Lymphocytes # (Auto) 2.5 x10^3/uL (1.0-4.8) Monocytes # (Auto) 0.7 x10^3/uL (0.0-1.1) Eosinophils # (Auto) 0.5 x10^3/uL (0.0-0.7) Basophils # (Auto) 0.1 x10^3/uL (0.0-0.2) Sodium Level 142 mmol/L (136-145) Potassium Level 3.5 mmol/L (3.5-5.1) Chloride Level 108 mmol/L (98-107) Carbon Dioxide Level 28 mmol/L (21-32) Anion Gap 6 (6-14) Blood Urea Nitrogen 8 mg/dL (8-26) Creatinine 1.1 mg/dL (0.7-1.3) Estimated GFR (Cockcroft-Gault) 76.2 Glucose Level 105 mg/dL (70-99) Calcium Level 8.2 mg/dL (8.5-10.1) Review of Systems Review of Systems: Complains of weakness complains of hunger Assessment and Plan Assessmemt and Plan Problems Medical Problems: (1) Leukocytosis Status: Acute (2) Pulmonary abscess Status: Acute Pulmonary abscess sepsis recent influenza-possible superinfection with pulmonary abscess. Plan Continue abx Continue tamiflu 75mg BID for recent flu dx Trend labs Check an HIV antibodies per Dr. Murphy Continue inpt treatment Home meds DVT prophylaxis Full code Comment Review of Relevant I have reviewed the following items alysa (where applicable) has been applied. CATIE CHACKO III DO Dec 24, 2019 13:00
--- NOTE | 2019-12-24 13:36 | NUR ---
SS following up with discharge planning. Pt is currently on room air and IV abx. No PT/OT needs documented at this time. SS will continue to follow for discharge planning.
[2019-12-24 14:37] VITALS: BP 117/64
[2019-12-24 19:55] VITALS: BP 132/70
[2019-12-24] MEDS: ZOLPIDEM 5 MG TABLET. PO PRN (21:30)
[2019-12-24] MEDS: HYDROcodone/APAP 5/325MG 1 TAB TABLET PO PRN (21:30)
[2019-12-24] MEDS: guaiFENesin/CODEINE 100mg/10mg 5 ML LIQUID PO PRN (21:30)
[2019-12-24 22:44] VITALS: BP 126/65
[2019-12-25 02:51] VITALS: BP 115/69
[2019-12-25 04:56] LABS: BASO # 0.1 x10^3/uL (0.0-0.2); BASO % 1 % (0-3); EOS # 0.5 x10^3/uL (0.0-0.7); EOS % 6 % (0-3); HEMATOCRIT 38.9 % (39.0-53.0); HEMOGLOBIN 12.8 g/dL (13.0-17.5); LYMPH # 3.2 x10^3/uL (1.0-4.8); LYMPH % 35 % (24-48); MEAN CORPUSCULAR HEMOGLOBIN 28 pg (25-35); MEAN CORPUSCULAR HGB CONC 33 g/dL (31-37); MEAN CORPUSCULAR VOLUME 86 fL (79-100); MONO # 0.7 x10^3/uL (0.0-1.1); MONO % 8 % (0-9); NEUT # 4.7 x10^3/uL (1.8-7.7); NEUT % 51 % (31-73); PLATELET COUNT 436 x10^3/uL (140-400); RED BLOOD COUNT 4.51 x10^6/uL (4.30-5.70); RED CELL DISTRIBUTION WIDTH 13.6 % (11.5-14.5); WHITE BLOOD COUNT 9.2 x10^3/uL (4.0-11.0)
[2019-12-25 05:18] LABS: CALCIUM 8.3 mg/dL (8.5-10.1); POTASSIUM 3.8 mmol/L (3.5-5.1)
[2019-12-25] MEDS: PIPERACILLIN/TAZOBACTAM 4.5 GM in IV NORMAL SALINE 100ML 100 ML IV SCH ×6 (05:30→23:45)
[2019-12-25 07:19] VITALS: BP 116/66
--- NOTE | 2019-12-25 08:18 | PDOC ---
PULMONARY PROGRESS NOTES Subjective PT FEELS BETTER NO INCREASE BERT NO CHEST PAIN Vitals Vital Signs Date Time Temp Pulse Resp B/P (MAP) Pulse Ox O2 Delivery O2 Flow Rate FiO2 12/25/19 07:19 97.9 76 16 116/66 (83) 92 Room Air 91.0 97.9 ROS: No Nausea, No Chest Pain, No Abdominal Pain, No Increase Cough General: Alert, No acute distress Lungs: Crackles Cardiovascular: S1, S2 Abdomen: Soft, Non-tender Neuro Exam: Alert, Oriented Extremities: No Edema Skin: Warm Labs Laboratory Tests Test 12/24/19 03:45 12/24/19 04:10 12/25/19 03:39 White Blood Count 7.9 x10^3/uL (4.0-11.0) 9.2 x10^3/uL (4.0-11.0) Red Blood Count 4.47 x10^6/uL (4.30-5.70) 4.51 x10^6/uL (4.30-5.70) Hemoglobin 12.9 g/dL (13.0-17.5) 12.8 g/dL (13.0-17.5) Hematocrit 38.0 % (39.0-53.0) 38.9 % (39.0-53.0) Mean Corpuscular Volume 85 fL (79-100) 86 fL (79-100) Mean Corpuscular Hemoglobin 29 pg (25-35) 28 pg (25-35) Mean Corpuscular Hemoglobin Concent 34 g/dL (31-37) 33 g/dL (31-37) Red Cell Distribution Width 13.3 % (11.5-14.5) 13.6 % (11.5-14.5) Platelet Count 400 x10^3/uL (140-400) 436 x10^3/uL (140-400) Neutrophils (%) (Auto) 53 % (31-73) 51 % (31-73) Lymphocytes (%) (Auto) 31 % (24-48) 35 % (24-48) Monocytes (%) (Auto) 9 % (0-9) 8 % (0-9) Eosinophils (%) (Auto) 6 % (0-3) 6 % (0-3) Basophils (%) (Auto) 1 % (0-3) 1 % (0-3) Neutrophils # (Auto) 4.2 x10^3/uL (1.8-7.7) 4.7 x10^3/uL (1.8-7.7) Lymphocytes # (Auto) 2.5 x10^3/uL (1.0-4.8) 3.2 x10^3/uL (1.0-4.8) Monocytes # (Auto) 0.7 x10^3/uL (0.0-1.1) 0.7 x10^3/uL (0.0-1.1) Eosinophils # (Auto) 0.5 x10^3/uL (0.0-0.7) 0.5 x10^3/uL (0.0-0.7) Basophils # (Auto) 0.1 x10^3/uL (0.0-0.2) 0.1 x10^3/uL (0.0-0.2) Sodium Level 142 mmol/L (136-145) 142 mmol/L (136-145) Potassium Level 3.5 mmol/L (3.5-5.1) 3.8 mmol/L (3.5-5.1) Chloride Level 108 mmol/L (98-107) 108 mmol/L (98-107) Carbon Dioxide Level 28 mmol/L (21-32) 25 mmol/L (21-32) Anion Gap 6 (6-14) 9 (6-14) Blood Urea Nitrogen 8 mg/dL (8-26) 10 mg/dL (8-26) Creatinine 1.1 mg/dL (0.7-1.3) 1.0 mg/dL (0.7-1.3) Estimated GFR (Cockcroft-Gault) 76.2 85.0 Glucose Level 105 mg/dL (70-99) 96 mg/dL (70-99) Calcium Level 8.2 mg/dL (8.5-10.1) 8.3 mg/dL (8.5-10.1) Laboratory Tests Test 12/25/19 03:39 White Blood Count 9.2 x10^3/uL (4.0-11.0) Red Blood Count 4.51 x10^6/uL (4.30-5.70) Hemoglobin 12.8 g/dL (13.0-17.5) Hematocrit 38.9 % (39.0-53.0) Mean Corpuscular Volume 86 fL (79-100) Mean Corpuscular Hemoglobin 28 pg (25-35) Mean Corpuscular Hemoglobin Concent 33 g/dL (31-37) Red Cell Distribution Width 13.6 % (11.5-14.5) Platelet Count 436 x10^3/uL (140-400) Neutrophils (%) (Auto) 51 % (31-73) Lymphocytes (%) (Auto) 35 % (24-48) Monocytes (%) (Auto) 8 % (0-9) Eosinophils (%) (Auto) 6 % (0-3) Basophils (%) (Auto) 1 % (0-3) Neutrophils # (Auto) 4.7 x10^3/uL (1.8-7.7) Lymphocytes # (Auto) 3.2 x10^3/uL (1.0-4.8) Monocytes # (Auto) 0.7 x10^3/uL (0.0-1.1) Eosinophils # (Auto) 0.5 x10^3/uL (0.0-0.7) Basophils # (Auto) 0.1 x10^3/uL (0.0-0.2) Sodium Level 142 mmol/L (136-145) Potassium Level 3.8 mmol/L (3.5-5.1) Chloride Level 108 mmol/L (98-107) Carbon Dioxide Level 25 mmol/L (21-32) Anion Gap 9 (6-14) Blood Urea Nitrogen 10 mg/dL (8-26) Creatinine 1.0 mg/dL (0.7-1.3) Estimated GFR (Cockcroft-Gault) 85.0 Glucose Level 96 mg/dL (70-99) Calcium Level 8.3 mg/dL (8.5-10.1) Impression . 1. Acute hypoxic respiratory failure secondary to necrotizing pneumonia/lung abscess. Clinically, unlikely tuberculosis and also unlikely pulmonary vasculitis. Vaping may be a risk factor. 2. Possible underlying chronic obstructive pulmonary disease, smoked for 16 years. 3. History of spontaneous pneumothorax on the right side 10 years ago, requiring chest tube and no other surgical intervention. 4. Abnormal CT chest consistent with left upper lobe lung abscess and pneumonia along with emphysematous blebs and changes in the upper lobes. 5. Influenza Impression: 1. Cavitary left midlung mass, stable to decreased in size compared to prior allowing for differences in technique. 2. Increased left mid and basilar opacities, may represent worsening adjacent pneumonia. 3. Increased small left pleural effusion. 4. Mild right basilar atelectasis. Plan . WILL REPEAT CT CHEST AND MAKE FURTHER REC HIV NEGATIVE CONTINUE ANTI BX PER ID REPEAT CT IN 6 WEEKS SPENCER CHASE MD Dec 25, 2019 08:18
[2019-12-25] MEDS: BENZONATATE 100 MG CAPSULE. PO SCH ×3 (09:06→21:26)
[2019-12-25] MEDS: LACTOBACILLUS RHAMNOSUS GG 1 CAPSULE. PO SCH ×2 (09:06→21:26)
--- NOTE | 2019-12-25 09:43 | PDOC ---
Infectious Disease Note Subjective: Subjective Pt feels a little better has cough with yellow sputum Denies SOA at rest Denies fevers/chills last 24 hours Denies N/V had some loose bm ,says was from stool softners Vital Signs: Vital Signs Vital Signs Date Time Temp Pulse Resp B/P (MAP) Pulse Ox O2 Delivery O2 Flow Rate FiO2 12/25/19 08:00 Room Air 12/25/19 07:19 97.9 76 16 116/66 (83) 92 91.0 97.9 Physical Exam: PHYSICAL EXAM GENERAL: Propped up in bed, alert and watching TV HEENT: Oral cavity clear NECK: Supple, no JVP, no lymphadenopathy. LUNGS: Clear. HEART: S1, S2 regular. ABDOMEN: Soft and nontender, BS active EXTREMITIES: No edema or cyanosis. SKIN: Warm to touch. No signs of rash NEUROLOGIC: Alert, awake and appropriate. No focal neurologic deficit. PIV ok Medications: Inpatient Meds: Current Medications Medications (Trade) Dose Ordered Sig/Sonido Start Time Stop Time Status Last Admin Dose Admin Acetaminophen (Tylenol) 650 mg 1X ONCE 12/20/19 00:00 12/20/19 00:01 DC 12/20/19 00:59 650 MG Acetaminophen/ Hydrocodone Bitart (Lortab 5/325) 1 tab PRN Q4HRS PRN 12/21/19 19:15 12/24/19 21:30 1 TAB Benzonatate (Tessalon Perle) 100 mg TID 12/19/19 21:00 12/25/19 09:06 100 MG Ceftriaxone Sodium (Rocephin) 1 gm 1X ONCE 12/19/19 18:45 12/19/19 18:46 DC 12/19/19 18:56 1 GM Docusate Sodium (Colace) 100 mg DAILY 12/22/19 15:00 12/24/19 14:50 DC 12/23/19 08:48 100 MG Guaifenesin (Mucinex) 600 mg BID 12/19/19 21:00 12/25/19 09:06 600 MG Guaifenesin/ Codeine Phosphate (Robitussin Ac) 10 ml PRN Q6HRS PRN 12/19/19 20:45 12/24/19 21:30 10 ML Info (CONTRAST GIVEN -- Rx MONITORING) 1 each PRN DAILY PRN 12/19/19 18:30 12/21/19 18:29 DC Iohexol (Omnipaque 300 Mg/ml) 75 ml 1X ONCE 12/19/19 18:15 12/19/19 18:16 DC 12/19/19 18:23 75 ML Ketorolac Tromethamine (Toradol 30mg Vial) 30 mg 1X ONCE 12/19/19 18:00 12/19/19 18:01 DC 12/19/19 17:54 30 MG Lactobacillus Rhamnosus (Culturelle) 1 cap BID 12/20/19 09:00 12/25/19 09:06 1 CAP Linezolid/Dextrose 300 ml @ 300 mls/hr Q12HR 12/19/19 22:00 12/25/19 09:08 300 MLS/HR Morphine Sulfate (Morphine Sulfate) 2 mg PRN Q2HR PRN 12/19/19 20:00 12/20/19 19:59 DC Ondansetron HCl (Zofran) 4 mg PRN Q8HRS PRN 12/19/19 20:00 12/20/19 19:59 DC Oseltamivir Phosphate (Tamiflu) 75 mg BID 12/20/19 12:00 12/24/19 21:01 DC 12/24/19 21:29 75 MG Piperacillin Sod/ Tazobactam Sod (Zosyn Per Pharmacy) 1 each PRN DAILY PRN 12/19/19 20:30 Piperacillin Sod/ Tazobactam Sod 3.375 gm/Sodium Chloride 50 ml @ 100 mls/hr 1X ONCE 12/19/19 19:30 12/19/19 19:59 DC 12/19/19 19:40 100 MLS/HR Piperacillin Sod/ Tazobactam Sod 4.5 gm/Sodium Chloride 100 ml @ 200 mls/hr Q6HRS 12/20/19 00:00 12/25/19 05:30 200 MLS/HR Sodium Chloride 1,000 ml @ 75 mls/hr 1X ONCE 12/21/19 18:00 12/22/19 09:45 DC 12/21/19 18:34 75 MLS/HR Tuberculin PPD (Tubersol) 0.1 ml 1X ONCE 12/20/19 15:30 12/20/19 15:31 DC 12/20/19 15:35 0.1 ML Vancomycin HCl 250 ml @ 250 mls/hr 1X ONCE 12/19/19 19:30 12/19/19 20:29 DC 12/19/19 20:24 250 MLS/HR Zolpidem Tartrate (Ambien) 5 mg PRN QHS PRN 12/22/19 00:15 12/24/19 21:30 5 MG Labs: Lab Laboratory Tests Test 12/25/19 03:39 White Blood Count 9.2 x10^3/uL (4.0-11.0) Red Blood Count 4.51 x10^6/uL (4.30-5.70) Hemoglobin 12.8 g/dL (13.0-17.5) Hematocrit 38.9 % (39.0-53.0) Mean Corpuscular Volume 86 fL (79-100) Mean Corpuscular Hemoglobin 28 pg (25-35) Mean Corpuscular Hemoglobin Concent 33 g/dL (31-37) Red Cell Distribution Width 13.6 % (11.5-14.5) Platelet Count 436 x10^3/uL (140-400) Neutrophils (%) (Auto) 51 % (31-73) Lymphocytes (%) (Auto) 35 % (24-48) Monocytes (%) (Auto) 8 % (0-9) Eosinophils (%) (Auto) 6 % (0-3) Basophils (%) (Auto) 1 % (0-3) Neutrophils # (Auto) 4.7 x10^3/uL (1.8-7.7) Lymphocytes # (Auto) 3.2 x10^3/uL (1.0-4.8) Monocytes # (Auto) 0.7 x10^3/uL (0.0-1.1) Eosinophils # (Auto) 0.5 x10^3/uL (0.0-0.7) Basophils # (Auto) 0.1 x10^3/uL (0.0-0.2) Sodium Level 142 mmol/L (136-145) Potassium Level 3.8 mmol/L (3.5-5.1) Chloride Level 108 mmol/L (98-107) Carbon Dioxide Level 25 mmol/L (21-32) Anion Gap 9 (6-14) Blood Urea Nitrogen 10 mg/dL (8-26) Creatinine 1.0 mg/dL (0.7-1.3) Estimated GFR (Cockcroft-Gault) 85.0 Glucose Level 96 mg/dL (70-99) Calcium Level 8.3 mg/dL (8.5-10.1) Objective: Assessment: Left upper lobe lung abscess. Fever. Leukocytosis and bandemia - better Influenza (urgent care) Vaping Plan: Plan of Care Zyvox, Zosyn complete Tamiflu f/u cultures Might need a CT drainage, biopsy and/or bronchoscopy. Droplet precautions d/w QUINN TIRADO MD Dec 25, 2019 09:43
[2019-12-25 10:38] VITALS: BP 115/62
--- NOTE | 2019-12-25 13:19 | PDOC ---
[facility] [facility] PROGRESS NOTE Chief Complaint Chief Complaint pulmonary abscess sepsis acute hypoxic repsiratory failure isolation for flu, r/o TB vaping related lung injury History of Present Illness History of Present Illness [id number] Patient seen and examined Discussed with RN Chart reviewed [id number] Patient seen and examined Discussed with case management Discussed with RN Plan is to continue IV antibiotics [id number] Patient seen and examined Discussed with Dr. Murphy She wants to check HIV antibodies and I agree Chart reviewed 12/21ill in isolation for Flu, TB skin test to be done today, looks ok so far pain better, HR better 12/20, cont current, symptoms better cough, chest pain with deep breaths, vitals better 12/20/19 Pt seen and examined laying in bed. Says he was diagnosed with flu at urgent care few days ago. Discussed chart with RN. Will await rec from pulm and ID regarding drainage. Vitals/I&O Vitals/I&O: Vital Signs Date Time Temp Pulse Resp B/P (MAP) Pulse Ox O2 Delivery O2 Flow Rate FiO2 12/25/19 10:38 97.3 75 16 115/62 (79) 95 Room Air 97.3 12/25/19 07:19 91.0 I & O 12/24/19 12/24/19 12/25/19 15:00 23:00 07:00 Intake Total 900 ml 1190 ml 700 ml Output Total 1250 ml 525 ml 800 ml Balance -350 ml 665 ml -100 ml Physical Exam Physical Exam: GENERAL: Propped up in bed, alert and watching TV HEENT: Oral cavity clear NECK: Supple, no JVP, no lymphadenopathy. LUNGS: Clear. HEART: S1, S2 regular. ABDOMEN: Soft and nontender, BS active EXTREMITIES: No edema or cyanosis. SKIN: Warm to touch. No signs of rash NEUROLOGIC: Alert, awake and appropriate. No focal neurologic deficit. PIV ok General: Alert, Oriented X3, Cooperative, moderate distress Lungs: Crackles Abdomen: Normal bowel sounds, Soft Extremities: No clubbing, No cyanosis, No edema Skin: No rashes, No significant lesion Labs Labs: Laboratory Tests Test 12/25/19 03:39 White Blood Count 9.2 x10^3/uL (4.0-11.0) Red Blood Count 4.51 x10^6/uL (4.30-5.70) Hemoglobin 12.8 g/dL (13.0-17.5) Hematocrit 38.9 % (39.0-53.0) Mean Corpuscular Volume 86 fL (79-100) Mean Corpuscular Hemoglobin 28 pg (25-35) Mean Corpuscular Hemoglobin Concent 33 g/dL (31-37) Red Cell Distribution Width 13.6 % (11.5-14.5) Platelet Count 436 x10^3/uL (140-400) Neutrophils (%) (Auto) 51 % (31-73) Lymphocytes (%) (Auto) 35 % (24-48) Monocytes (%) (Auto) 8 % (0-9) Eosinophils (%) (Auto) 6 % (0-3) Basophils (%) (Auto) 1 % (0-3) Neutrophils # (Auto) 4.7 x10^3/uL (1.8-7.7) Lymphocytes # (Auto) 3.2 x10^3/uL (1.0-4.8) Monocytes # (Auto) 0.7 x10^3/uL (0.0-1.1) Eosinophils # (Auto) 0.5 x10^3/uL (0.0-0.7) Basophils # (Auto) 0.1 x10^3/uL (0.0-0.2) Sodium Level 142 mmol/L (136-145) Potassium Level 3.8 mmol/L (3.5-5.1) Chloride Level 108 mmol/L (98-107) Carbon Dioxide Level 25 mmol/L (21-32) Anion Gap 9 (6-14) Blood Urea Nitrogen 10 mg/dL (8-26) Creatinine 1.0 mg/dL (0.7-1.3) Estimated GFR (Cockcroft-Gault) 85.0 Glucose Level 96 mg/dL (70-99) Calcium Level 8.3 mg/dL (8.5-10.1) Assessment and Plan Assessmemt and Plan Problems Medical Problems: (1) Leukocytosis Status: Acute (2) Pulmonary abscess Status: Acute pulmonary abscess sepsis acute hypoxic repsiratory failure isolation for flu, r/o TB vaping related lung injury Plan Discharge in a.m. For now continue IV antibiotics Hope to change to by mouth antibiotics in a.m. Home meds DVT prophylaxis Full code Comment Review of Relevant I have reviewed the following items alysa (where applicable) has been applied. CATIE CHACKO III DO Dec 25, 2019 13:19
[2019-12-25 14:25] VITALS: BP 116/77
--- NOTE | 2019-12-25 16:07 | RAD ---
EXAM: CT Chest without IV contrast INDICATION: Follow-up lung abscess. TECHNIQUE: Multi-detector row CT images were acquired from the thoracic inlet through the upper abdomen without the use of IV contrast. Sagittal and coronal images were acquired from the transaxial data. All CT scans performed at this facility utilize dose optimization techniques as appropriate to the exam, including the following: Automated exposure control and adjustment of the mA and/or KV according to patient size (this includes techniques or standardized protocols for targeted exams where dose is indication/reason for exam). COMPARISON: Chest CT without IV contrast of 12/19/2019. FINDINGS: The absence of IV contrast limits evaluation of soft tissue pathology. CARDIOVASCULAR: Unremarkable MEDIASTINUM & JASON: No adenopathy or masses. LUNGS: Paraseptal pattern emphysema affecting the upper lobes the greatest extent is redemonstrated along with scarring of the right lung apex with curvilinear density suggesting previous surgical biopsy with suture material or pleural plaque. Persistent cavitary pneumonia in the lateral left upper lobe with interval decrease in size of the cavity, now measuring 5.0 x 4.4 cm in AP by transverse diameters compared with 5.1 x 5.9 cm previously. However, interval lobar consolidation in the left lower lobe with relative sparing of the anterior and medial basal segments has occurred with additional findings of subtle multifocal bilateral pulmonary patchy airspace opacities. These are new in the interval. Also new is subsegmental atelectasis in the posterior basal right lower lobe. PLEURAL SPACE: A moderate left pleural effusion has developed from a previously small left pleural effusion. No pneumothorax. OSSEOUS & SOFT TISSUE: Unremarkable ABDOMEN: The visualized portions of the upper abdomen are unremarkable. IMPRESSION: Worsening multifocal pneumonia. Electronically signed by: Neyda Guo MD (12/25/2019 4:04 PM) [place] [id number]
[2019-12-25 19:59] VITALS: BP 122/75
[2019-12-25] MEDS: HYDROcodone/APAP 5/325MG 1 TAB TABLET PO PRN (21:26)
[2019-12-25 22:18] VITALS: BP 128/75
[2019-12-25] MEDS: ZOLPIDEM 5 MG TABLET. PO PRN (23:44)
[2019-12-26 03:20] VITALS: BP 116/70
[2019-12-26] MEDS: PIPERACILLIN/TAZOBACTAM 4.5 GM in IV NORMAL SALINE 100ML 100 ML IV SCH ×4 (06:12→23:26)
[2019-12-26 06:34] LABS: BASO # 0.1 x10^3/uL (0.0-0.2); BASO % 1 % (0-3); EOS # 0.5 x10^3/uL (0.0-0.7); EOS % 7 % (0-3); HEMATOCRIT 40.4 % (39.0-53.0); HEMOGLOBIN 13.4 g/dL (13.0-17.5); LYMPH # 2.6 x10^3/uL (1.0-4.8); LYMPH % 33 % (24-48); MEAN CORPUSCULAR HEMOGLOBIN 28 pg (25-35); MEAN CORPUSCULAR HGB CONC 33 g/dL (31-37); MEAN CORPUSCULAR VOLUME 86 fL (79-100); MONO # 0.5 x10^3/uL (0.0-1.1); MONO % 6 % (0-9); NEUT # 4.2 x10^3/uL (1.8-7.7); NEUT % 53 % (31-73); PLATELET COUNT 463 x10^3/uL (140-400); RED BLOOD COUNT 4.73 x10^6/uL (4.30-5.70); RED CELL DISTRIBUTION WIDTH 13.6 % (11.5-14.5)
[2019-12-26 06:37] LABS: CALCIUM 8.4 mg/dL (8.5-10.1); POTASSIUM 4.2 mmol/L (3.5-5.1)
[2019-12-26 07:17] VITALS: BP 118/74
--- NOTE | 2019-12-26 07:24 | NUR ---
IP: Pt has completed the 7 days post influenza and is afebrile, therefore, droplet precautions may be discontinued.
--- NOTE | 2019-12-26 08:26 | PDOC ---
PULMONARY PROGRESS NOTES Subjective PT NOT MORE SOA NO INCREASE COUGH Vitals Vital Signs Date Time Temp Pulse Resp B/P (MAP) Pulse Ox O2 Delivery O2 Flow Rate FiO2 12/26/19 07:17 97.6 66 20 118/74 (89) 95 Room Air 97.6 12/25/19 07:19 91.0 ROS: No Nausea, No Chest Pain, No Abdominal Pain, No Increase Cough General: Alert, No acute distress Lungs: Crackles Cardiovascular: S1, S2 Abdomen: Soft, Non-tender Neuro Exam: Alert, Oriented Extremities: No Edema Skin: Warm Labs Laboratory Tests Test 12/25/19 03:39 12/26/19 06:07 White Blood Count 9.2 x10^3/uL (4.0-11.0) 8.0 x10^3/uL (4.0-11.0) Red Blood Count 4.51 x10^6/uL (4.30-5.70) 4.73 x10^6/uL (4.30-5.70) Hemoglobin 12.8 g/dL (13.0-17.5) 13.4 g/dL (13.0-17.5) Hematocrit 38.9 % (39.0-53.0) 40.4 % (39.0-53.0) Mean Corpuscular Volume 86 fL (79-100) 86 fL (79-100) Mean Corpuscular Hemoglobin 28 pg (25-35) 28 pg (25-35) Mean Corpuscular Hemoglobin Concent 33 g/dL (31-37) 33 g/dL (31-37) Red Cell Distribution Width 13.6 % (11.5-14.5) 13.6 % (11.5-14.5) Platelet Count 436 x10^3/uL (140-400) 463 x10^3/uL (140-400) Neutrophils (%) (Auto) 51 % (31-73) 53 % (31-73) Lymphocytes (%) (Auto) 35 % (24-48) 33 % (24-48) Monocytes (%) (Auto) 8 % (0-9) 6 % (0-9) Eosinophils (%) (Auto) 6 % (0-3) 7 % (0-3) Basophils (%) (Auto) 1 % (0-3) 1 % (0-3) Neutrophils # (Auto) 4.7 x10^3/uL (1.8-7.7) 4.2 x10^3/uL (1.8-7.7) Lymphocytes # (Auto) 3.2 x10^3/uL (1.0-4.8) 2.6 x10^3/uL (1.0-4.8) Monocytes # (Auto) 0.7 x10^3/uL (0.0-1.1) 0.5 x10^3/uL (0.0-1.1) Eosinophils # (Auto) 0.5 x10^3/uL (0.0-0.7) 0.5 x10^3/uL (0.0-0.7) Basophils # (Auto) 0.1 x10^3/uL (0.0-0.2) 0.1 x10^3/uL (0.0-0.2) Sodium Level 142 mmol/L (136-145) 142 mmol/L (136-145) Potassium Level 3.8 mmol/L (3.5-5.1) 4.2 mmol/L (3.5-5.1) Chloride Level 108 mmol/L (98-107) 107 mmol/L (98-107) Carbon Dioxide Level 25 mmol/L (21-32) 25 mmol/L (21-32) Anion Gap 9 (6-14) 10 (6-14) Blood Urea Nitrogen 10 mg/dL (8-26) 11 mg/dL (8-26) Creatinine 1.0 mg/dL (0.7-1.3) 1.0 mg/dL (0.7-1.3) Estimated GFR (Cockcroft-Gault) 85.0 85.0 Glucose Level 96 mg/dL (70-99) 103 mg/dL (70-99) Calcium Level 8.3 mg/dL (8.5-10.1) 8.4 mg/dL (8.5-10.1) Laboratory Tests Test 12/26/19 06:07 White Blood Count 8.0 x10^3/uL (4.0-11.0) Red Blood Count 4.73 x10^6/uL (4.30-5.70) Hemoglobin 13.4 g/dL (13.0-17.5) Hematocrit 40.4 % (39.0-53.0) Mean Corpuscular Volume 86 fL (79-100) Mean Corpuscular Hemoglobin 28 pg (25-35) Mean Corpuscular Hemoglobin Concent 33 g/dL (31-37) Red Cell Distribution Width 13.6 % (11.5-14.5) Platelet Count 463 x10^3/uL (140-400) Neutrophils (%) (Auto) 53 % (31-73) Lymphocytes (%) (Auto) 33 % (24-48) Monocytes (%) (Auto) 6 % (0-9) Eosinophils (%) (Auto) 7 % (0-3) Basophils (%) (Auto) 1 % (0-3) Neutrophils # (Auto) 4.2 x10^3/uL (1.8-7.7) Lymphocytes # (Auto) 2.6 x10^3/uL (1.0-4.8) Monocytes # (Auto) 0.5 x10^3/uL (0.0-1.1) Eosinophils # (Auto) 0.5 x10^3/uL (0.0-0.7) Basophils # (Auto) 0.1 x10^3/uL (0.0-0.2) Sodium Level 142 mmol/L (136-145) Potassium Level 4.2 mmol/L (3.5-5.1) Chloride Level 107 mmol/L (98-107) Carbon Dioxide Level 25 mmol/L (21-32) Anion Gap 10 (6-14) Blood Urea Nitrogen 11 mg/dL (8-26) Creatinine 1.0 mg/dL (0.7-1.3) Estimated GFR (Cockcroft-Gault) 85.0 Glucose Level 103 mg/dL (70-99) Calcium Level 8.4 mg/dL (8.5-10.1) Impression . 1. Acute hypoxic respiratory failure secondary to necrotizing pneumonia/lung abscess. Clinically, unlikely tuberculosis and also unlikely pulmonary vasculitis. Vaping may be a risk factor. 2. Possible underlying chronic obstructive pulmonary disease, smoked for 16 years. 3. History of spontaneous pneumothorax on the right side 10 years ago, requiring chest tube and no other surgical intervention. 4. Abnormal CT chest REPEAT WAS REVIEWED BY AND SAMANO NOW WITH POSSIBLE EMPYEMA WILL NEED CHEST TUBE 5. Influenza Impression: 1. Cavitary left midlung mass, stable to decreased in size compared to prior allowing for differences in technique. 2. Increased left mid and basilar opacities, may represent worsening adjacent pneumonia. 3. Increased small left pleural effusion. 4. Mild right basilar atelectasis. Plan . NEEDS CHEST TUBE I WENT OVER THE POSSIBLE CONSEQUENCES OF NOT PLACING A TUBE L EADING TO SEPSIS AND POSSIBLE THOROCOTOMY IN FUTURE, PT AGREED TO STAY IN HOSPITAL HIV NEGATIVE CONTINUE ANTI BX PER ID D/W SPENCER BANDA MD Dec 26, 2019 08:26
[2019-12-26] MEDS: LACTOBACILLUS RHAMNOSUS GG 1 CAPSULE. PO SCH ×2 (08:34→21:03)
[2019-12-26] MEDS: BENZONATATE 100 MG CAPSULE. PO SCH ×3 (08:34→21:03)
--- NOTE | 2019-12-26 09:08 | PDOC ---
Infectious Disease Note Subjective: Subjective Pt feels better cough is improving Denies SOA at rest Denies fevers/chills last 24 hours Denies N/V awaiting dc home per team today Vital Signs: Vital Signs Vital Signs Date Time Temp Pulse Resp B/P (MAP) Pulse Ox O2 Delivery O2 Flow Rate FiO2 12/26/19 07:17 97.6 66 20 118/74 (89) 95 Room Air 97.6 12/25/19 07:19 91.0 Physical Exam: PHYSICAL EXAM GENERAL: Propped up in bed, alert and watching TV HEENT: Oral cavity clear NECK: Supple, no JVP, no lymphadenopathy. LUNGS: Clear. HEART: S1, S2 regular. ABDOMEN: Soft and nontender, BS active EXTREMITIES: No edema or cyanosis. SKIN: Warm to touch. No signs of rash NEUROLOGIC: Alert, awake and appropriate. No focal neurologic deficit. PIV ok Medications: Inpatient Meds: Current Medications Medications (Trade) Dose Ordered Sig/Sonido Start Time Stop Time Status Last Admin Dose Admin Acetaminophen (Tylenol) 650 mg 1X ONCE 12/20/19 00:00 12/20/19 00:01 DC 12/20/19 00:59 650 MG Acetaminophen/ Hydrocodone Bitart (Lortab 5/325) 1 tab PRN Q4HRS PRN 12/21/19 19:15 12/25/19 21:26 1 TAB Benzonatate (Tessalon Perle) 100 mg TID 12/19/19 21:00 12/26/19 08:34 100 MG Ceftriaxone Sodium (Rocephin) 1 gm 1X ONCE 12/19/19 18:45 12/19/19 18:46 DC 12/19/19 18:56 1 GM Docusate Sodium (Colace) 100 mg DAILY 12/22/19 15:00 12/24/19 14:50 DC 12/23/19 08:48 100 MG Guaifenesin (Mucinex) 600 mg BID 12/19/19 21:00 12/26/19 08:34 600 MG Guaifenesin/ Codeine Phosphate (Robitussin Ac) 10 ml PRN Q6HRS PRN 12/19/19 20:45 12/24/19 21:30 10 ML Info (CONTRAST GIVEN -- Rx MONITORING) 1 each PRN DAILY PRN 12/19/19 18:30 12/21/19 18:29 DC Iohexol (Omnipaque 300 Mg/ml) 75 ml 1X ONCE 12/19/19 18:15 12/19/19 18:16 DC 12/19/19 18:23 75 ML Ketorolac Tromethamine (Toradol 30mg Vial) 30 mg 1X ONCE 12/19/19 18:00 12/19/19 18:01 DC 12/19/19 17:54 30 MG Lactobacillus Rhamnosus (Culturelle) 1 cap BID 12/20/19 09:00 12/26/19 08:34 1 CAP Linezolid/Dextrose 300 ml @ 300 mls/hr Q12HR 12/19/19 22:00 12/26/19 08:34 300 MLS/HR Morphine Sulfate (Morphine Sulfate) 2 mg PRN Q2HR PRN 12/19/19 20:00 12/20/19 19:59 DC Ondansetron HCl (Zofran) 4 mg PRN Q8HRS PRN 12/19/19 20:00 12/20/19 19:59 DC Oseltamivir Phosphate (Tamiflu) 75 mg BID 12/20/19 12:00 12/24/19 21:01 DC 12/24/19 21:29 75 MG Piperacillin Sod/ Tazobactam Sod (Zosyn Per Pharmacy) 1 each PRN DAILY PRN 12/19/19 20:30 Piperacillin Sod/ Tazobactam Sod 3.375 gm/Sodium Chloride 50 ml @ 100 mls/hr 1X ONCE 12/19/19 19:30 12/19/19 19:59 DC 12/19/19 19:40 100 MLS/HR Piperacillin Sod/ Tazobactam Sod 4.5 gm/Sodium Chloride 100 ml @ 200 mls/hr Q6HRS 12/20/19 00:00 12/26/19 06:12 200 MLS/HR Sodium Chloride 1,000 ml @ 75 mls/hr 1X ONCE 12/21/19 18:00 12/22/19 09:45 DC 12/21/19 18:34 75 MLS/HR Tuberculin PPD (Tubersol) 0.1 ml 1X ONCE 12/20/19 15:30 12/20/19 15:31 DC 12/20/19 15:35 0.1 ML Vancomycin HCl 250 ml @ 250 mls/hr 1X ONCE 12/19/19 19:30 12/19/19 20:29 DC 12/19/19 20:24 250 MLS/HR Zolpidem Tartrate (Ambien) 5 mg PRN QHS PRN 12/22/19 00:15 12/25/19 23:44 5 MG Labs: Lab Laboratory Tests Test 12/26/19 06:07 White Blood Count 8.0 x10^3/uL (4.0-11.0) Red Blood Count 4.73 x10^6/uL (4.30-5.70) Hemoglobin 13.4 g/dL (13.0-17.5) Hematocrit 40.4 % (39.0-53.0) Mean Corpuscular Volume 86 fL (79-100) Mean Corpuscular Hemoglobin 28 pg (25-35) Mean Corpuscular Hemoglobin Concent 33 g/dL (31-37) Red Cell Distribution Width 13.6 % (11.5-14.5) Platelet Count 463 x10^3/uL (140-400) Neutrophils (%) (Auto) 53 % (31-73) Lymphocytes (%) (Auto) 33 % (24-48) Monocytes (%) (Auto) 6 % (0-9) Eosinophils (%) (Auto) 7 % (0-3) Basophils (%) (Auto) 1 % (0-3) Neutrophils # (Auto) 4.2 x10^3/uL (1.8-7.7) Lymphocytes # (Auto) 2.6 x10^3/uL (1.0-4.8) Monocytes # (Auto) 0.5 x10^3/uL (0.0-1.1) Eosinophils # (Auto) 0.5 x10^3/uL (0.0-0.7) Basophils # (Auto) 0.1 x10^3/uL (0.0-0.2) Sodium Level 142 mmol/L (136-145) Potassium Level 4.2 mmol/L (3.5-5.1) Chloride Level 107 mmol/L (98-107) Carbon Dioxide Level 25 mmol/L (21-32) Anion Gap 10 (6-14) Blood Urea Nitrogen 11 mg/dL (8-26) Creatinine 1.0 mg/dL (0.7-1.3) Estimated GFR (Cockcroft-Gault) 85.0 Glucose Level 103 mg/dL (70-99) Calcium Level 8.4 mg/dL (8.5-10.1) Micro sputum gpc, final yeast likely contamination CT Chest repeat 12/24 FINDINGS: The absence of IV contrast limits evaluation of soft tissue pathology. CARDIOVASCULAR: Unremarkable MEDIASTINUM & JASON: No adenopathy or masses. LUNGS: Paraseptal pattern emphysema affecting the upper lobes the greatest extent is redemonstrated along with scarring of the right lung apex with curvilinear density suggesting previous surgical biopsy with suture material or pleural plaque. Persistent cavitary pneumonia in the lateral left upper lobe with interval decrease in size of the cavity, now measuring 5.0 x 4.4 cm in AP by transverse diameters compared with 5.1 x 5.9 cm previously. However, interval lobar consolidation in the left lower lobe with relative sparing of the anterior and medial basal segments has occurred with additional findings of subtle multifocal bilateral pulmonary patchy airspace opacities. These are new in the interval. Also new is subsegmental atelectasis in the posterior basal right lower lobe. PLEURAL SPACE: A moderate left pleural effusion has developed from a previously small left pleural effusion. No pneumothorax. OSSEOUS & SOFT TISSUE: Unremarkable ABDOMEN: The visualized portions of the upper abdomen are unremarkable. IMPRESSION: Worsening multifocal pneumonia. Objective: Assessment: Large Left upper lobe lung abscess. HIV negative Repeat CT shows worsening of abscess , could be ? techinique per pulm Fever.resolved Leukocytosis and bandemia - resolved Influenza (urgent care) Vaping Plan: Plan of Care Pt is ready for dc home per team today IV antibiotics for 2 weeks followed by po pt refuses for iv antibiotics due to his job ,with [employer] requests po, pros and cons discussed linezolid for 7 days augmentin for 3 weeks script in chart s/e discussed probiotics f/u with id office in 2 weeks if pt condition worsens may need drainage will need repeat imaging and f/u with pulm d/w QUINN TIRADO MD Dec 26, 2019 09:08
[2019-12-26 11:00] VITALS: BP 122/76
--- NOTE | 2019-12-26 12:45 | NUR ---
SW following. Discussed with RN, pt is from home. RN advised pt is discharging home today with no SW needs. Addendum: 12/26/19 at 1605 by SOSA LEIVA Pt not discharging today, getting a chest tube. CALI will continue to follow.
[2019-12-26] MEDS ORDERED: HYDR-2759 PO (14:30)
[2019-12-26] MEDS ORDERED: AMOX1TAB61 PO (14:31)
[2019-12-26] MEDS ORDERED: LINE100S2 PO (14:32)
[2019-12-26] MEDS ORDERED: L.AC1CAP6 PO (14:33)
[2019-12-26 16:26] LABS: PROTHROMBIN TIME PATIENT 13.6 SEC (11.7-14.0)
[2019-12-26 19:13] VITALS: BP 117/69
[2019-12-26] MEDS: HYDROcodone/APAP 5/325MG 1 TAB TABLET PO PRN (21:04)
[2019-12-26 23:00] VITALS: BP 108/71
[2019-12-26] MEDS: ZOLPIDEM 5 MG TABLET. PO PRN (23:26)
[2019-12-27] VITALS (17 sets, daily range): BP systolic 107–132; BP diastolic 68–86
[2019-12-27] MEDS: PIPERACILLIN/TAZOBACTAM 4.5 GM in IV NORMAL SALINE 100ML 100 ML IV SCH ×4 (05:38→23:50)
[2019-12-27] MEDS ORDERED: LIDOCAINE WITH 8.4% SOD BICARB 3 ML DISP.SYRIN. ONE (07:59)
[2019-12-27] MEDS ORDERED: MIDAZOLAM HCL/PF 5 MG/5 ML VIAL. ONE (08:14)
[2019-12-27] MEDS ORDERED: fentaNYL PF VIAL 250 MCG/5 ML VIAL ONE (08:15)
[2019-12-27] MEDS ORDERED: fentaNYL PF VIAL 250 MCG/5 ML VIAL IV ONE (08:30)
[2019-12-27] MEDS ORDERED: LIDOCAINE WITH 8.4% SOD BICARB 3 ML DISP.SYRIN. IJ ONE (08:30)
[2019-12-27] MEDS ORDERED: MIDAZOLAM HCL/PF 5 MG/5 ML VIAL. IV ONE (08:30)
--- NOTE | 2019-12-27 09:07 | PDOC ---
PULMONARY PROGRESS NOTES Subjective PT NOT MORE SOA OR INCREASE COUGH Vitals Vital Signs Date Time Temp Pulse Resp B/P (MAP) Pulse Ox O2 Delivery O2 Flow Rate FiO2 12/27/19 08:53 80 14 95 Room Air 12/27/19 08:48 129/73 (91) 2.0 12/27/19 07:30 97.7 97.7 ROS: No Nausea, No Chest Pain, No Abdominal Pain, No Increase Cough General: Alert, No acute distress Lungs: Crackles Cardiovascular: S1, S2 Abdomen: Soft, Non-tender Neuro Exam: Alert, Oriented Extremities: No Edema Skin: Warm Labs Laboratory Tests Test 12/26/19 06:07 12/26/19 15:50 White Blood Count 8.0 x10^3/uL (4.0-11.0) Red Blood Count 4.73 x10^6/uL (4.30-5.70) Hemoglobin 13.4 g/dL (13.0-17.5) Hematocrit 40.4 % (39.0-53.0) Mean Corpuscular Volume 86 fL (79-100) Mean Corpuscular Hemoglobin 28 pg (25-35) Mean Corpuscular Hemoglobin Concent 33 g/dL (31-37) Red Cell Distribution Width 13.6 % (11.5-14.5) Platelet Count 463 x10^3/uL (140-400) Neutrophils (%) (Auto) 53 % (31-73) Lymphocytes (%) (Auto) 33 % (24-48) Monocytes (%) (Auto) 6 % (0-9) Eosinophils (%) (Auto) 7 % (0-3) Basophils (%) (Auto) 1 % (0-3) Neutrophils # (Auto) 4.2 x10^3/uL (1.8-7.7) Lymphocytes # (Auto) 2.6 x10^3/uL (1.0-4.8) Monocytes # (Auto) 0.5 x10^3/uL (0.0-1.1) Eosinophils # (Auto) 0.5 x10^3/uL (0.0-0.7) Basophils # (Auto) 0.1 x10^3/uL (0.0-0.2) Sodium Level 142 mmol/L (136-145) Potassium Level 4.2 mmol/L (3.5-5.1) Chloride Level 107 mmol/L (98-107) Carbon Dioxide Level 25 mmol/L (21-32) Anion Gap 10 (6-14) Blood Urea Nitrogen 11 mg/dL (8-26) Creatinine 1.0 mg/dL (0.7-1.3) Estimated GFR (Cockcroft-Gault) 85.0 Glucose Level 103 mg/dL (70-99) Calcium Level 8.4 mg/dL (8.5-10.1) Prothrombin Time 13.6 SEC (11.7-14.0) Prothromb Time International Ratio 1.1 (0.8-1.1) Laboratory Tests Test 12/26/19 15:50 Prothrombin Time 13.6 SEC (11.7-14.0) Prothromb Time International Ratio 1.1 (0.8-1.1) Medications Active Scripts Medications Dose Route/Sig Max Daily Dose Days Date Category Probiotic (L.acidoph & Paracasei,B.lactis) 1 Each Capsule 1 Each PO BID 12/26/19 Reported Linezolid 100 Mg/5 Ml Susp.recon 600 Mg PO BID 7 12/26/19 Reported Augmentin 875-125 Tablet (Amoxicillin/Potassium Clav) 1 Each Tablet 1 Tab PO BID 21 12/26/19 Reported Hydrocodone-Acetamin 5-325 mg (Hydrocodone/Acetaminophen) 1 Each Tablet 1 Tab PO Q6HRS PRN 12/26/19 Reported Impression . 1. Acute hypoxic respiratory failure secondary to necrotizing pneumonia/lung abscess. Clinically, unlikely tuberculosis and also unlikely pulmonary vasculitis. Vaping may be a risk factor. 2. Possible underlying chronic obstructive pulmonary disease, smoked for 16 years. 3. History of spontaneous pneumothorax on the right side 10 years ago, requiring chest tube and no other surgical intervention. 4. Abnormal CT chest REPEAT WAS REVIEWED BY AND SAMANO NOW WITH POSSIBLE EMPYEMA WILL NEED CHEST TUBE 5. Influenza Impression: 1. Cavitary left midlung mass, stable to decreased in size compared to prior allowing for differences in technique. 2. Increased left mid and basilar opacities, may represent worsening adjacent pneumonia. 3. Increased small left pleural effusion. 4. Mild right basilar atelectasis. Plan . CHEST TUBE ON LEFT FREE FLOWING FLUID WILL FOLLOW UP ON ANALYSIS HIV NEGATIVE CONTINUE ANTI BX PER ID D/W SPENCER BANDA MD Dec 27, 2019 09:07
[2019-12-27] MEDS: BENZONATATE 100 MG CAPSULE. PO SCH ×3 (09:10→21:02)
[2019-12-27] MEDS: LACTOBACILLUS RHAMNOSUS GG 1 CAPSULE. PO SCH ×2 (09:10→21:01)
--- NOTE | 2019-12-27 09:23 | RAD ---
CT-guided left thoracostomy tube placement. 12/27/2019 7:17 AM Indication: POSSIBLE LEFT EMPYEMA Discussion: The risks and benefits of the procedure, including but not limited to, bleeding and infection were discussed patient. Informed consent was obtained. The patient was brought to the CT scanner and placed in the prone position. A timeout procedure was performed. CT imaging of the patient demonstrates a left pleural effusion. The overlying soft tissues were prepped and draped using maximum sterile barrier technique. 1% lidocaine without epinephrine was administered for local anesthesia. Under intermittent CT guidance 5 [place] Yueh needle was advanced into the pleural space. Serous fluid was aspirated. A guidewire was advanced to the pleural space over which, following dilatation 10 [place]an pigtail drain was placed. Serous fluid was aspirated and sent for evaluation per ordering physician request. The catheter secured in place. Sterile dressings were applied. The catheter was connected to Pleur-evac device at -20 cm water. The procedure was performed under conscious sedation including continuous cardiopulmonary monitoring via dedicated sedation nurse. Sedation time: 20 minutes Impression: CT-guided left thoracostomy tube placement. PQRS Compliance Statement: One or more of the following individualized dose reduction techniques were utilized for this examination: 1. Automated exposure control 2. Adjustment of the mA and/or kV according to patient size 3. Use of iterative reconstruction technique
--- NOTE | 2019-12-27 09:35 | NUR ---
SW following. Discussed with RN, pt having a thoracentesis today with possible chest tube placement. SW will continue to follow.
[2019-12-27 09:55] LABS: BASO # 0.1 x10^3/uL (0.0-0.2); BASO % 1 % (0-3); EOS # 0.3 x10^3/uL (0.0-0.7); EOS % 4 % (0-3); HEMATOCRIT 41.7 % (39.0-53.0); LYMPH # 1.9 x10^3/uL (1.0-4.8); LYMPH % 26 % (24-48); MEAN CORPUSCULAR HEMOGLOBIN 29 pg (25-35); MEAN CORPUSCULAR HGB CONC 34 g/dL (31-37); MEAN CORPUSCULAR VOLUME 86 fL (79-100); MONO # 0.3 x10^3/uL (0.0-1.1); MONO % 4 % (0-9); NEUT # 4.9 x10^3/uL (1.8-7.7); NEUT % 65 % (31-73); PLATELET COUNT 486 x10^3/uL (140-400); RED BLOOD COUNT 4.87 x10^6/uL (4.30-5.70); RED CELL DISTRIBUTION WIDTH 13.8 % (11.5-14.5); WHITE BLOOD COUNT 7.6 x10^3/uL (4.0-11.0)
[2019-12-27 09:56] LABS: CALCIUM 8.7 mg/dL (8.5-10.1); CREATININE 1.1 mg/dL (0.7-1.3); GFR 76.2; POTASSIUM 4.2 mmol/L (3.5-5.1)
--- NOTE | 2019-12-27 10:07 | PDOC ---
PROGRESS NOTES Chief Complaint Chief Complaint pulmonary abscess sepsis acute hypoxic repsiratory failure isolation for flu, r/o TB vaping related lung injury History of Present Illness History of Present Illness Mr Nix is a 34yo M w/ PMHx spontaneous PTX on right side who presented with persistent fever, cough, treated outpatient by PCP and urgent care for influenza who arrived on 12/19/2019 with multifocal pneumonia and fever 101.5F. Pulmonology and ID consulted. 12/19: Fever 100.5F 12/20: Afebrile 12/21: Isolation for influenza 12/22: HIV negative 12/23: TB negative 12/24: Improved symptoms 12/25: CT chest with worsening multifocal pneumonia, but improvement in left upper cavitation. Pleural effusion much larger, remained inpatient for chest tube placement Tolerated left sided chest tube well with serosangiounous drainage of 500cc immediately with some coughing noted. No chest pain. Afebrile since 12/20/19 Vitals Vitals Vital Signs Date Time Temp Pulse Resp B/P (MAP) Pulse Ox O2 Delivery O2 Flow Rate FiO2 12/27/19 09:20 Room Air 12/27/19 09:16 80 130/78 (95) 12/27/19 08:53 14 95 12/27/19 08:48 2.0 12/27/19 07:30 97.7 97.7 Physical Exam Physical Exam GENERAL: Propped up in bed, alert and watching TV HEENT: Oral cavity clear NECK: Supple, no JVP, no lymphadenopathy. LUNGS: Clear. HEART: S1, S2 regular. ABDOMEN: Soft and nontender, BS active EXTREMITIES: No edema or cyanosis. SKIN: Warm to touch. No signs of rash NEUROLOGIC: Alert, awake and appropriate. No focal neurologic deficit. PIV ok General: Alert, Oriented X3, Cooperative, moderate distress Lungs: Crackles Abdomen: Normal bowel sounds, Soft Extremities: No clubbing, No cyanosis, No edema Skin: No rashes, No significant lesion Labs LABS Laboratory Tests Test 12/26/19 15:50 12/27/19 09:20 Prothrombin Time 13.6 SEC (11.7-14.0) Prothromb Time International Ratio 1.1 (0.8-1.1) White Blood Count 7.6 x10^3/uL (4.0-11.0) Red Blood Count 4.87 x10^6/uL (4.30-5.70) Hemoglobin 14.0 g/dL (13.0-17.5) Hematocrit 41.7 % (39.0-53.0) Mean Corpuscular Volume 86 fL (79-100) Mean Corpuscular Hemoglobin 29 pg (25-35) Mean Corpuscular Hemoglobin Concent 34 g/dL (31-37) Red Cell Distribution Width 13.8 % (11.5-14.5) Platelet Count 486 x10^3/uL (140-400) Neutrophils (%) (Auto) 65 % (31-73) Lymphocytes (%) (Auto) 26 % (24-48) Monocytes (%) (Auto) 4 % (0-9) Eosinophils (%) (Auto) 4 % (0-3) Basophils (%) (Auto) 1 % (0-3) Neutrophils # (Auto) 4.9 x10^3/uL (1.8-7.7) Lymphocytes # (Auto) 1.9 x10^3/uL (1.0-4.8) Monocytes # (Auto) 0.3 x10^3/uL (0.0-1.1) Eosinophils # (Auto) 0.3 x10^3/uL (0.0-0.7) Basophils # (Auto) 0.1 x10^3/uL (0.0-0.2) Sodium Level 142 mmol/L (136-145) Potassium Level 4.2 mmol/L (3.5-5.1) Chloride Level 107 mmol/L (98-107) Carbon Dioxide Level 26 mmol/L (21-32) Anion Gap 9 (6-14) Blood Urea Nitrogen 13 mg/dL (8-26) Creatinine 1.1 mg/dL (0.7-1.3) Estimated GFR (Cockcroft-Gault) 76.2 Glucose Level 94 mg/dL (70-99) Calcium Level 8.7 mg/dL (8.5-10.1) Assessment and Plan Assessmemt and Plan Problems Medical Problems: (1) Leukocytosis Status: Acute (2) Pulmonary abscess Status: Acute Comment Review of Relevant I have reviewed the following items alysa (where applicable) has been applied. Labs Laboratory Tests Test 12/26/19 06:07 12/26/19 15:50 12/27/19 09:20 White Blood Count 8.0 x10^3/uL (4.0-11.0) 7.6 x10^3/uL (4.0-11.0) Red Blood Count 4.73 x10^6/uL (4.30-5.70) 4.87 x10^6/uL (4.30-5.70) Hemoglobin 13.4 g/dL (13.0-17.5) 14.0 g/dL (13.0-17.5) Hematocrit 40.4 % (39.0-53.0) 41.7 % (39.0-53.0) Mean Corpuscular Volume 86 fL (79-100) 86 fL (79-100) Mean Corpuscular Hemoglobin 28 pg (25-35) 29 pg (25-35) Mean Corpuscular Hemoglobin Concent 33 g/dL (31-37) 34 g/dL (31-37) Red Cell Distribution Width 13.6 % (11.5-14.5) 13.8 % (11.5-14.5) Platelet Count 463 x10^3/uL (140-400) 486 x10^3/uL (140-400) Neutrophils (%) (Auto) 53 % (31-73) 65 % (31-73) Lymphocytes (%) (Auto) 33 % (24-48) 26 % (24-48) Monocytes (%) (Auto) 6 % (0-9) 4 % (0-9) Eosinophils (%) (Auto) 7 % (0-3) 4 % (0-3) Basophils (%) (Auto) 1 % (0-3) 1 % (0-3) Neutrophils # (Auto) 4.2 x10^3/uL (1.8-7.7) 4.9 x10^3/uL (1.8-7.7) Lymphocytes # (Auto) 2.6 x10^3/uL (1.0-4.8) 1.9 x10^3/uL (1.0-4.8) Monocytes # (Auto) 0.5 x10^3/uL (0.0-1.1) 0.3 x10^3/uL (0.0-1.1) Eosinophils # (Auto) 0.5 x10^3/uL (0.0-0.7) 0.3 x10^3/uL (0.0-0.7) Basophils # (Auto) 0.1 x10^3/uL (0.0-0.2) 0.1 x10^3/uL (0.0-0.2) Sodium Level 142 mmol/L (136-145) 142 mmol/L (136-145) Potassium Level 4.2 mmol/L (3.5-5.1) 4.2 mmol/L (3.5-5.1) Chloride Level 107 mmol/L (98-107) 107 mmol/L (98-107) Carbon Dioxide Level 25 mmol/L (21-32) 26 mmol/L (21-32) Anion Gap 10 (6-14) 9 (6-14) Blood Urea Nitrogen 11 mg/dL (8-26) 13 mg/dL (8-26) Creatinine 1.0 mg/dL (0.7-1.3) 1.1 mg/dL (0.7-1.3) Estimated GFR (Cockcroft-Gault) 85.0 76.2 Glucose Level 103 mg/dL (70-99) 94 mg/dL (70-99) Calcium Level 8.4 mg/dL (8.5-10.1) 8.7 mg/dL (8.5-10.1) Prothrombin Time 13.6 SEC (11.7-14.0) Prothromb Time International Ratio 1.1 (0.8-1.1) Laboratory Tests Test 12/26/19 15:50 12/27/19 09:20 Prothrombin Time 13.6 SEC (11.7-14.0) Prothromb Time International Ratio 1.1 (0.8-1.1) White Blood Count 7.6 x10^3/uL (4.0-11.0) Red Blood Count 4.87 x10^6/uL (4.30-5.70) Hemoglobin 14.0 g/dL (13.0-17.5) Hematocrit 41.7 % (39.0-53.0) Mean Corpuscular Volume 86 fL (79-100) Mean Corpuscular Hemoglobin 29 pg (25-35) Mean Corpuscular Hemoglobin Concent 34 g/dL (31-37) Red Cell Distribution Width 13.8 % (11.5-14.5) Platelet Count 486 x10^3/uL (140-400) Neutrophils (%) (Auto) 65 % (31-73) Lymphocytes (%) (Auto) 26 % (24-48) Monocytes (%) (Auto) 4 % (0-9) Eosinophils (%) (Auto) 4 % (0-3) Basophils (%) (Auto) 1 % (0-3) Neutrophils # (Auto) 4.9 x10^3/uL (1.8-7.7) Lymphocytes # (Auto) 1.9 x10^3/uL (1.0-4.8) Monocytes # (Auto) 0.3 x10^3/uL (0.0-1.1) Eosinophils # (Auto) 0.3 x10^3/uL (0.0-0.7) Basophils # (Auto) 0.1 x10^3/uL (0.0-0.2) Sodium Level 142 mmol/L (136-145) Potassium Level 4.2 mmol/L (3.5-5.1) Chloride Level 107 mmol/L (98-107) Carbon Dioxide Level 26 mmol/L (21-32) Anion Gap 9 (6-14) Blood Urea Nitrogen 13 mg/dL (8-26) Creatinine 1.1 mg/dL (0.7-1.3) Estimated GFR (Cockcroft-Gault) 76.2 Glucose Level 94 mg/dL (70-99) Calcium Level 8.7 mg/dL (8.5-10.1) Microbiology 12/20/19 - Final, Complete 12/20/19 - Final, Complete 12/20/19 - Final, Complete 12/20/19 Gram Stain Evaluation - Final, Complete 12/20/19 Sputum Culture - Final, Complete 12/20/19 Sputum Result 1 - Final, Complete 12/20/19 Sputum Result 2 - Final, Complete 12/19/19 Blood Culture - Final, Complete NO GROWTH AFTER 5 DAYS Medications Current Medications Ketorolac Tromethamine (Toradol 30mg Vial) 30 mg STK-MED ONCE .ROUTE ; Start 12/19/19 at 17:48; Stop 12/19/19 at 17:48; Status DC Ketorolac Tromethamine (Toradol 30mg Vial) 30 mg 1X ONCE IVP Last administered on 12/19/19at 17:54; Start 12/19/19 at 18:00; Stop 12/19/19 at 18:01; Status DC Sodium Chloride 1,000 ml @ 1,000 mls/hr 1X ONCE IV Last administered on 12/19/19at 17:54; Start 12/19/19 at 18:00; Stop 12/19/19 at 18:59; Status DC Iohexol (Omnipaque 300 Mg/ml) 75 ml 1X ONCE IV Last administered on 12/19/19at 18:23; Start 12/19/19 at 18:15; Stop 12/19/19 at 18:16; Status DC Info (CONTRAST GIVEN -- Rx MONITORING) 1 each PRN DAILY PRN MC SEE COMMENTS; Start 12/19/19 at 18:30; Stop 12/21/19 at 18:29; Status DC Sodium Chloride 1,000 ml @ 1,000 mls/hr 1X ONCE IV Last administered on 12/19/19at 18:57; Start 12/19/19 at 18:45; Stop 12/19/19 at 19:44; Status DC Ceftriaxone Sodium (Rocephin) 1 gm 1X ONCE IVP Last administered on 12/19/19at 18:56; Start 12/19/19 at 18:45; Stop 12/19/19 at 18:46; Status DC Piperacillin Sod/ Tazobactam Sod 3.375 gm/Sodium Chloride 50 ml @ 100 mls/hr 1X ONCE IV Last administered on 12/19/19at 19:40; Start 12/19/19 at 19:30; Stop 12/19/19 at 19:59; Status DC Vancomycin HCl 250 ml @ 250 mls/hr 1X ONCE IV Last administered on 12/19/19at 20:24; Start 12/19/19 at 19:30; Stop 12/19/19 at 20:29; Status DC Guaifenesin/ Codeine Phosphate (Robitussin Ac) 5 ml PRN Q6HRS PRN PO COUGH; Start 12/19/19 at 20:00; Stop 12/20/19 at 08:55; Status DC Ondansetron HCl (Zofran) 4 mg PRN Q8HRS PRN IV NAUSEA/VOMITING; Start 12/19/19 at 20:00; Stop 12/20/19 at 19:59; Status DC Morphine Sulfate (Morphine Sulfate) 2 mg PRN Q2HR PRN IV PAIN; Start 12/19/19 at 20:00; Stop 12/20/19 at 19:59; Status DC Sodium Chloride 1,000 ml @ 125 mls/hr Q8H IV Last administered on 12/20/19at 18:20; Start 12/19/19 at 19:50; Stop 12/20/19 at 19:49; Status DC Piperacillin Sod/ Tazobactam Sod (Zosyn Per Pharmacy) 1 each PRN DAILY PRN MC SEE COMMENTS; Start 12/19/19 at 20:30 Linezolid/Dextrose 300 ml @ 300 mls/hr Q12HR IV Last administered on 12/27/19at 09:10; Start 12/19/19 at 22:00 Piperacillin Sod/ Tazobactam Sod 4.5 gm/Sodium Chloride 100 ml @ 200 mls/hr Q6HRS IV Last administered on 12/27/19at 05:38; Start 12/20/19 at 00:00 Benzonatate (Tessalon Perle) 100 mg TID PO Last administered on 12/27/19at 09:10; Start 12/19/19 at 21:00 Guaifenesin/ Codeine Phosphate (Robitussin Ac) 10 ml PRN Q6HRS PRN PO COUGH Last administered on 12/24/19at 21:30; Start 12/19/19 at 20:45 Guaifenesin (Mucinex) 600 mg BID PO Last administered on 12/27/19at 09:10; Start 12/19/19 at 21:00 Acetaminophen (Tylenol) 650 mg Q6HRS ONCE PO Last administered on 12/19/19at 21:39; Start 12/20/19 at 00:00; Stop 12/19/19 at 21:41; Status DC Acetaminophen (Tylenol) 650 mg 1X ONCE PO Last administered on 12/20/19at 00:59; Start 12/20/19 at 00:00; Stop 12/20/19 at 00:01; Status DC Lactobacillus Rhamnosus (Culturelle) 1 cap BID PO Last administered on 12/27/19at 09:10; Start 12/20/19 at 09:00 Oseltamivir Phosphate (Tamiflu) 75 mg BID PO Last administered on 12/24/19at 21:29; Start 12/20/19 at 12:00; Stop 12/24/19 at 21:01; Status DC Tuberculin PPD (Tubersol) 0.1 ml 1X ONCE ID Last administered on 12/20/19at 15:35; Start 12/20/19 at 15:30; Stop 12/20/19 at 15:31; Status DC Sodium Chloride 1,000 ml @ 75 mls/hr 1X ONCE IV Last administered on 12/21/19at 18:34; Start 12/21/19 at 18:00; Stop 12/22/19 at 09:45; Status DC Acetaminophen/ Hydrocodone Bitart (Lortab 5/325) 1 tab PRN Q4HRS PRN PO MODERATE PAIN Last administered on 12/26/19at 21:04; Start 12/21/19 at 19:15 Zolpidem Tartrate (Ambien) 5 mg PRN QHS PRN PO INSOMNIA Last administered on 12/26/19at 23:26; Start 12/22/19 at 00:15 Docusate Sodium (Colace) 100 mg DAILY PO Last administered on 12/23/19at 08:48; Start 12/22/19 at 15:00; Stop 12/24/19 at 14:50; Status DC Lidocaine HCl (Buffered Lidocaine 1%) 3 ml STK-MED ONCE .ROUTE ; Start 12/27/19 at 07:59; Stop 12/27/19 at 07:59; Status DC Midazolam HCl (Versed) 5 mg STK-MED ONCE .ROUTE ; Start 12/27/19 at 08:14; Stop 12/27/19 at 08:16; Status DC Fentanyl Citrate (Fentanyl 5ml Vial) 250 mcg STK-MED ONCE .ROUTE ; Start 12/27/19 at 08:15; Stop 12/27/19 at 08:16; Status DC Lidocaine HCl (Buffered Lidocaine 1%) 3 ml 1X ONCE IJ Last administered on 12/27/19at 08:31; Start 12/27/19 at 08:30; Stop 12/27/19 at 08:33; Status DC Midazolam HCl (Versed) 5 mg 1X ONCE IV Last administered on 12/27/19at 08:31; Start 12/27/19 at 08:30; Stop 12/27/19 at 08:33; Status DC Fentanyl Citrate (Fentanyl 5ml Vial) 250 mcg 1X ONCE IV Last administered on 12/27/19at 08:31; Start 12/27/19 at 08:30; Stop 12/27/19 at 08:33; Status DC Active Scripts Active Reported Probiotic (L.acidoph & Paracasei,B.lactis) 1 Each Capsule 1 Each PO BID Linezolid 100 Mg/5 Ml Susp.recon 600 Mg PO BID 7 Days Augmentin 875-125 Tablet (Amoxicillin/Potassium Clav) 1 Each Tablet 1 Tab PO BID 21 Days Hydrocodone-Acetamin 5-325 mg (Hydrocodone/Acetaminophen) 1 Each Tablet 1 Tab PO Q6HRS PRN Vitals/I & O Vital Sign - Last 24 Hours 12/26/19 12/26/19 12/26/19 12/26/19 11:00 15:00 19:13 20:30 Temp 97.7 97.9 97.7 97.7 97.9 97.7 Pulse 66 92 89 Resp 18 20 16 B/P (MAP) 122/76 (91) 117/69 (85) Pulse Ox 96 92 O2 Delivery Room Air Room Air Room Air 12/26/19 12/26/19 12/26/19 12/27/19 21:04 22:00 23:00 02:57 Temp 98.1 97.6 98.1 97.6 Pulse 76 84 Resp 16 16 16 17 B/P (MAP) 108/71 (83) 114/80 (91) Pulse Ox 94 91 O2 Delivery Room Air Room Air Room Air Room Air 12/27/19 12/27/19 12/27/19 12/27/19 07:30 08:00 08:31 08:31 Temp 97.7 97.7 Pulse 65 103 Resp 16 18 17 B/P (MAP) 112/73 (86) Pulse Ox 93 96 O2 Delivery Room Air Room Air Nasal Cannula O2 Flow Rate 91.0 2.0 12/27/19 12/27/19 12/27/19 12/27/19 08:36 08:40 08:44 08:48 Pulse 89 97 87 88 Resp 15 17 16 18 B/P (MAP) 110/75 (87) 129/83 (98) 128/79 (95) 129/73 (91) Pulse Ox 97 95 95 95 O2 Delivery Nasal Cannula Nasal Cannula Nasal Cannula Nasal Cannula O2 Flow Rate 2.0 2.0 2.0 2.0 12/27/19 12/27/19 12/27/19 12/27/19 08:53 09:01 09:16 09:20 Pulse 80 75 80 Resp 14 B/P (MAP) 126/76 (93) 130/78 (95) Pulse Ox 95 O2 Delivery Room Air Room Air Intake and Output 12/26/19 12/26/19 12/27/19 14:59 22:59 06:59 Intake Total 370 ml 540 ml 440 ml Output Total 750 ml 350 ml Balance -380 ml 190 ml [address] chest 12/25: CT chest - Paraseptal pattern emphysema affecting the upper lobes the greatest extent is redemonstrated along with scarring of the right lung apex with curvilinear density suggesting previous surgical biopsy with suture material or pleural plaque. Persistent cavitary pneumonia in the lateral left upper lobe with interval decrease in size of the cavity, now measuring 5.0 x 4.4 cm in AP by transverse diameters compared with 5.1 x 5.9 cm previously. However, interval lobar consolidation in the left lower lobe with relative sparing of the anterior and medial basal segments has occurred with additional findings of subtle multifocal bilateral pulmonary patchy airspace opacities. These are new in the interval. Also new is subsegmental atelectasis in the posterior basal right lower lobe. PLEURAL SPACE: A moderate left pleural effusion has developed from a previously small left pleural effusion. No pneumothorax. OSSEOUS & SOFT TISSUE: Unremarkable ABDOMEN: The visualized portions of the upper abdomen are unremarkable. IMPRESSION: Worsening multifocal pneumonia. CYN CHANCE MD Dec 27, 2019 10:07
[2019-12-27] MEDS: HYDROcodone/APAP 5/325MG 1 TAB TABLET PO PRN ×4 (10:33→23:49)
--- NOTE | 2019-12-27 11:43 | PDOC ---
Infectious Disease Note Subjective: Subjective Pt underwent CTS placement today Denies fevers/chills last 24 hours Denies N/V Vital Signs: Vital Signs Vital Signs Date Time Temp Pulse Resp B/P (MAP) Pulse Ox O2 Delivery O2 Flow Rate FiO2 12/27/19 10:46 78 121/83 (96) 12/27/19 10:33 Room Air 12/27/19 08:53 14 95 12/27/19 08:48 2.0 12/27/19 07:30 97.7 97.7 Physical Exam: PHYSICAL EXAM GENERAL: Propped up in bed, alert and watching TV HEENT: Oral cavity clear NECK: Supple, no JVP, no lymphadenopathy. LUNGS: Dec BS at bases, CTS Lt HEART: S1, S2 regular. ABDOMEN: Soft and nontender, BS active EXTREMITIES: No edema or cyanosis. SKIN: Warm to touch. No signs of rash NEUROLOGIC: Alert, awake and appropriate. No focal neurologic deficit. PIV ok Medications: Inpatient Meds: Current Medications Medications (Trade) Dose Ordered Sig/Sonido Start Time Stop Time Status Last Admin Dose Admin Acetaminophen (Tylenol) 650 mg 1X ONCE 12/20/19 00:00 12/20/19 00:01 DC 12/20/19 00:59 650 MG Acetaminophen/ Hydrocodone Bitart (Lortab 5/325) 1 tab PRN Q4HRS PRN 12/21/19 19:15 12/27/19 10:33 1 TAB Benzonatate (Tessalon Perle) 100 mg TID 12/19/19 21:00 12/27/19 09:10 100 MG Ceftriaxone Sodium (Rocephin) 1 gm 1X ONCE 12/19/19 18:45 12/19/19 18:46 DC 12/19/19 18:56 1 GM Docusate Sodium (Colace) 100 mg DAILY 12/22/19 15:00 12/24/19 14:50 DC 12/23/19 08:48 100 MG Fentanyl Citrate (Fentanyl 5ml Vial) 250 mcg 1X ONCE 12/27/19 08:30 12/27/19 08:33 DC 12/27/19 08:31 75 MCG Guaifenesin (Mucinex) 600 mg BID 12/19/19 21:00 12/27/19 09:10 600 MG Guaifenesin/ Codeine Phosphate (Robitussin Ac) 10 ml PRN Q6HRS PRN 12/19/19 20:45 12/24/19 21:30 10 ML Info (CONTRAST GIVEN -- Rx MONITORING) 1 each PRN DAILY PRN 12/19/19 18:30 12/21/19 18:29 DC Iohexol (Omnipaque 300 Mg/ml) 75 ml 1X ONCE 12/19/19 18:15 12/19/19 18:16 DC 12/19/19 18:23 75 ML Ketorolac Tromethamine (Toradol 30mg Vial) 30 mg 1X ONCE 12/19/19 18:00 12/19/19 18:01 DC 12/19/19 17:54 30 MG Lactobacillus Rhamnosus (Culturelle) 1 cap BID 12/20/19 09:00 12/27/19 09:10 1 CAP Lidocaine HCl (Buffered Lidocaine 1%) 3 ml 1X ONCE 12/27/19 08:30 12/27/19 08:33 DC 12/27/19 08:31 4 ML Linezolid/Dextrose 300 ml @ 300 mls/hr Q12HR 12/19/19 22:00 12/27/19 09:10 300 MLS/HR Midazolam HCl (Versed) 5 mg 1X ONCE 12/27/19 08:30 12/27/19 08:33 DC 12/27/19 08:31 3 MG Morphine Sulfate (Morphine Sulfate) 2 mg PRN Q2HR PRN 12/19/19 20:00 12/20/19 19:59 DC Ondansetron HCl (Zofran) 4 mg PRN Q8HRS PRN 12/19/19 20:00 12/20/19 19:59 DC Oseltamivir Phosphate (Tamiflu) 75 mg BID 12/20/19 12:00 12/24/19 21:01 DC 12/24/19 21:29 75 MG Piperacillin Sod/ Tazobactam Sod (Zosyn Per Pharmacy) 1 each PRN DAILY PRN 12/19/19 20:30 Piperacillin Sod/ Tazobactam Sod 3.375 gm/Sodium Chloride 50 ml @ 100 mls/hr 1X ONCE 12/19/19 19:30 12/19/19 19:59 DC 12/19/19 19:40 100 MLS/HR Piperacillin Sod/ Tazobactam Sod 4.5 gm/Sodium Chloride 100 ml @ 200 mls/hr Q6HRS 12/20/19 00:00 12/27/19 05:38 200 MLS/HR Sodium Chloride 1,000 ml @ 75 mls/hr 1X ONCE 12/21/19 18:00 12/22/19 09:45 DC 12/21/19 18:34 75 MLS/HR Tuberculin PPD (Tubersol) 0.1 ml 1X ONCE 12/20/19 15:30 12/20/19 15:31 DC 12/20/19 15:35 0.1 ML Vancomycin HCl 250 ml @ 250 mls/hr 1X ONCE 12/19/19 19:30 12/19/19 20:29 DC 12/19/19 20:24 250 MLS/HR Zolpidem Tartrate (Ambien) 5 mg PRN QHS PRN 12/22/19 00:15 12/26/19 23:26 5 MG Labs: Lab Laboratory Tests Test 12/26/19 15:50 12/27/19 08:23 12/27/19 09:20 Prothrombin Time 13.6 SEC (11.7-14.0) Prothromb Time International Ratio 1.1 (0.8-1.1) Body Fluid pH 7.55 White Blood Count 7.6 x10^3/uL (4.0-11.0) Red Blood Count 4.87 x10^6/uL (4.30-5.70) Hemoglobin 14.0 g/dL (13.0-17.5) Hematocrit 41.7 % (39.0-53.0) Mean Corpuscular Volume 86 fL (79-100) Mean Corpuscular Hemoglobin 29 pg (25-35) Mean Corpuscular Hemoglobin Concent 34 g/dL (31-37) Red Cell Distribution Width 13.8 % (11.5-14.5) Platelet Count 486 x10^3/uL (140-400) Neutrophils (%) (Auto) 65 % (31-73) Lymphocytes (%) (Auto) 26 % (24-48) Monocytes (%) (Auto) 4 % (0-9) Eosinophils (%) (Auto) 4 % (0-3) Basophils (%) (Auto) 1 % (0-3) Neutrophils # (Auto) 4.9 x10^3/uL (1.8-7.7) Lymphocytes # (Auto) 1.9 x10^3/uL (1.0-4.8) Monocytes # (Auto) 0.3 x10^3/uL (0.0-1.1) Eosinophils # (Auto) 0.3 x10^3/uL (0.0-0.7) Basophils # (Auto) 0.1 x10^3/uL (0.0-0.2) Sodium Level 142 mmol/L (136-145) Potassium Level 4.2 mmol/L (3.5-5.1) Chloride Level 107 mmol/L (98-107) Carbon Dioxide Level 26 mmol/L (21-32) Anion Gap 9 (6-14) Blood Urea Nitrogen 13 mg/dL (8-26) Creatinine 1.1 mg/dL (0.7-1.3) Estimated GFR (Cockcroft-Gault) 76.2 Glucose Level 94 mg/dL (70-99) Calcium Level 8.7 mg/dL (8.5-10.1) Micro sputum gpc, final yeast likely contamination CT Chest repeat 12/24 FINDINGS: The absence of IV contrast limits evaluation of soft tissue pathology. CARDIOVASCULAR: Unremarkable MEDIASTINUM & JASON: No adenopathy or masses. LUNGS: Paraseptal pattern emphysema affecting the upper lobes the greatest extent is redemonstrated along with scarring of the right lung apex with curvilinear density suggesting previous surgical biopsy with suture material or pleural plaque. Persistent cavitary pneumonia in the lateral left upper lobe with interval decrease in size of the cavity, now measuring 5.0 x 4.4 cm in AP by transverse diameters compared with 5.1 x 5.9 cm previously. However, interval lobar consolidation in the left lower lobe with relative sparing of the anterior and medial basal segments has occurred with additional findings of subtle multifocal bilateral pulmonary patchy airspace opacities. These are new in the interval. Also new is subsegmental atelectasis in the posterior basal right lower lobe. PLEURAL SPACE: A moderate left pleural effusion has developed from a previously small left pleural effusion. No pneumothorax. OSSEOUS & SOFT TISSUE: Unremarkable ABDOMEN: The visualized portions of the upper abdomen are unremarkable. IMPRESSION: Worsening multifocal pneumonia. Objective: Assessment: Large Left upper lobe lung abscess. HIV negative Lt pleural effusion s/p CTS 12/26 Fever.resolved Leukocytosis and bandemia - resolved Influenza (urgent care) Vaping Plan: Plan of Care cont zosyn/ linezolid f/u labs and cults d/w QUINN TIRADO MD Dec 27, 2019 11:43
[2019-12-27] MEDS: ZOLPIDEM 5 MG TABLET. PO PRN (23:49)
[2019-12-28 04:00] VITALS: BP 98/68
[2019-12-28] MEDS: PIPERACILLIN/TAZOBACTAM 4.5 GM in IV NORMAL SALINE 100ML 100 ML IV SCH ×3 (06:03→17:37)
[2019-12-28 07:00] VITALS: BP 102/61
--- NOTE | 2019-12-28 07:59 | PDOC ---
PROGRESS NOTES Chief Complaint Chief Complaint pulmonary abscess sepsis acute hypoxic repsiratory failure isolation for flu, r/o TB vaping related lung injury History of Present Illness History of Present Illness Mr Nix is a 34yo M w/ PMHx spontaneous PTX on right side who presented with persistent fever, cough, treated outpatient by PCP and urgent care for influenza who arrived on 12/19/2019 with multifocal pneumonia and fever 101.5F. Pulmonology and ID consulted. 12/19: Fever 100.5F 12/20: Afebrile 12/21: Isolation for influenza 12/22: HIV negative 12/23: TB negative 12/24: Improved symptoms 12/25: CT chest with worsening multifocal pneumonia, but improvement in left upper cavitation. Pleural effusion much larger, remained inpatient for chest tube placement 12/26: Tolerated left sided chest tube well with serosangiounous drainage of 500cc immediately with some coughing noted. No chest pain. Afebrile since 12/20/19 Overnight no events. 600cc fluid out of chest tube with no further drainage. Breathing well. Has pain and pruritis in his scrotum and groin area. No BM. Vitals Vitals Vital Signs Date Time Temp Pulse Resp B/P (MAP) Pulse Ox O2 Delivery O2 Flow Rate FiO2 12/28/19 07:00 98.0 75 18 102/61 (75) 94 Room Air 98.0 12/27/19 23:49 2.0 Physical Exam Physical Exam GENERAL: Propped up in bed, alert and watching TV HEENT: Oral cavity clear NECK: Supple, no JVP, no lymphadenopathy. LUNGS: Dec BS at bases, CTS Lt HEART: S1, S2 regular. ABDOMEN: Soft and nontender, BS active EXTREMITIES: No edema or cyanosis. SKIN: Warm to touch. No signs of rash NEUROLOGIC: Alert, awake and appropriate. No focal neurologic deficit. PIV ok General: Alert, Oriented X3, Cooperative, moderate distress Lungs: Crackles Abdomen: Normal bowel sounds, Soft Extremities: No clubbing, No cyanosis, No edema Skin: No rashes, No significant lesion Labs LABS Laboratory Tests Test 12/27/19 08:23 12/27/19 09:20 Body Fluid pH 7.55 White Blood Count 7.6 x10^3/uL (4.0-11.0) Red Blood Count 4.87 x10^6/uL (4.30-5.70) Hemoglobin 14.0 g/dL (13.0-17.5) Hematocrit 41.7 % (39.0-53.0) Mean Corpuscular Volume 86 fL (79-100) Mean Corpuscular Hemoglobin 29 pg (25-35) Mean Corpuscular Hemoglobin Concent 34 g/dL (31-37) Red Cell Distribution Width 13.8 % (11.5-14.5) Platelet Count 486 x10^3/uL (140-400) Neutrophils (%) (Auto) 65 % (31-73) Lymphocytes (%) (Auto) 26 % (24-48) Monocytes (%) (Auto) 4 % (0-9) Eosinophils (%) (Auto) 4 % (0-3) Basophils (%) (Auto) 1 % (0-3) Neutrophils # (Auto) 4.9 x10^3/uL (1.8-7.7) Lymphocytes # (Auto) 1.9 x10^3/uL (1.0-4.8) Monocytes # (Auto) 0.3 x10^3/uL (0.0-1.1) Eosinophils # (Auto) 0.3 x10^3/uL (0.0-0.7) Basophils # (Auto) 0.1 x10^3/uL (0.0-0.2) Sodium Level 142 mmol/L (136-145) Potassium Level 4.2 mmol/L (3.5-5.1) Chloride Level 107 mmol/L (98-107) Carbon Dioxide Level 26 mmol/L (21-32) Anion Gap 9 (6-14) Blood Urea Nitrogen 13 mg/dL (8-26) Creatinine 1.1 mg/dL (0.7-1.3) Estimated GFR (Cockcroft-Gault) 76.2 Glucose Level 94 mg/dL (70-99) Calcium Level 8.7 mg/dL (8.5-10.1) Assessment and Plan Assessmemt and Plan Problems Medical Problems: (1) Leukocytosis Status: Acute (2) Pulmonary abscess Status: Acute Comment Review of Relevant I have reviewed the following items alysa (where applicable) has been applied. Labs Laboratory Tests Test 12/26/19 15:50 12/27/19 08:23 12/27/19 09:20 Prothrombin Time 13.6 SEC (11.7-14.0) Prothromb Time International Ratio 1.1 (0.8-1.1) Body Fluid pH 7.55 White Blood Count 7.6 x10^3/uL (4.0-11.0) Red Blood Count 4.87 x10^6/uL (4.30-5.70) Hemoglobin 14.0 g/dL (13.0-17.5) Hematocrit 41.7 % (39.0-53.0) Mean Corpuscular Volume 86 fL (79-100) Mean Corpuscular Hemoglobin 29 pg (25-35) Mean Corpuscular Hemoglobin Concent 34 g/dL (31-37) Red Cell Distribution Width 13.8 % (11.5-14.5) Platelet Count 486 x10^3/uL (140-400) Neutrophils (%) (Auto) 65 % (31-73) Lymphocytes (%) (Auto) 26 % (24-48) Monocytes (%) (Auto) 4 % (0-9) Eosinophils (%) (Auto) 4 % (0-3) Basophils (%) (Auto) 1 % (0-3) Neutrophils # (Auto) 4.9 x10^3/uL (1.8-7.7) Lymphocytes # (Auto) 1.9 x10^3/uL (1.0-4.8) Monocytes # (Auto) 0.3 x10^3/uL (0.0-1.1) Eosinophils # (Auto) 0.3 x10^3/uL (0.0-0.7) Basophils # (Auto) 0.1 x10^3/uL (0.0-0.2) Sodium Level 142 mmol/L (136-145) Potassium Level 4.2 mmol/L (3.5-5.1) Chloride Level 107 mmol/L (98-107) Carbon Dioxide Level 26 mmol/L (21-32) Anion Gap 9 (6-14) Blood Urea Nitrogen 13 mg/dL (8-26) Creatinine 1.1 mg/dL (0.7-1.3) Estimated GFR (Cockcroft-Gault) 76.2 Glucose Level 94 mg/dL (70-99) Calcium Level 8.7 mg/dL (8.5-10.1) Laboratory Tests Test 12/27/19 08:23 12/27/19 09:20 Body Fluid pH 7.55 White Blood Count 7.6 x10^3/uL (4.0-11.0) Red Blood Count 4.87 x10^6/uL (4.30-5.70) Hemoglobin 14.0 g/dL (13.0-17.5) Hematocrit 41.7 % (39.0-53.0) Mean Corpuscular Volume 86 fL (79-100) Mean Corpuscular Hemoglobin 29 pg (25-35) Mean Corpuscular Hemoglobin Concent 34 g/dL (31-37) Red Cell Distribution Width 13.8 % (11.5-14.5) Platelet Count 486 x10^3/uL (140-400) Neutrophils (%) (Auto) 65 % (31-73) Lymphocytes (%) (Auto) 26 % (24-48) Monocytes (%) (Auto) 4 % (0-9) Eosinophils (%) (Auto) 4 % (0-3) Basophils (%) (Auto) 1 % (0-3) Neutrophils # (Auto) 4.9 x10^3/uL (1.8-7.7) Lymphocytes # (Auto) 1.9 x10^3/uL (1.0-4.8) Monocytes # (Auto) 0.3 x10^3/uL (0.0-1.1) Eosinophils # (Auto) 0.3 x10^3/uL (0.0-0.7) Basophils # (Auto) 0.1 x10^3/uL (0.0-0.2) Sodium Level 142 mmol/L (136-145) Potassium Level 4.2 mmol/L (3.5-5.1) Chloride Level 107 mmol/L (98-107) Carbon Dioxide Level 26 mmol/L (21-32) Anion Gap 9 (6-14) Blood Urea Nitrogen 13 mg/dL (8-26) Creatinine 1.1 mg/dL (0.7-1.3) Estimated GFR (Cockcroft-Gault) 76.2 Glucose Level 94 mg/dL (70-99) Calcium Level 8.7 mg/dL (8.5-10.1) Microbiology 12/20/19 - Final, Complete 12/20/19 - Final, Complete 12/20/19 - Final, Complete 12/20/19 Gram Stain Evaluation - Final, Complete 12/20/19 Sputum Culture - Final, Complete 12/20/19 Sputum Result 1 - Final, Complete 12/20/19 Sputum Result 2 - Final, Complete 12/19/19 Blood Culture - Final, Complete NO GROWTH AFTER 5 DAYS Medications Current Medications Ketorolac Tromethamine (Toradol 30mg Vial) 30 mg STK-MED ONCE .ROUTE ; Start 12/19/19 at 17:48; Stop 12/19/19 at 17:48; Status DC Ketorolac Tromethamine (Toradol 30mg Vial) 30 mg 1X ONCE IVP Last administered on 12/19/19at 17:54; Start 12/19/19 at 18:00; Stop 12/19/19 at 18:01; Status DC Sodium Chloride 1,000 ml @ 1,000 mls/hr 1X ONCE IV Last administered on 12/19/19at 17:54; Start 12/19/19 at 18:00; Stop 12/19/19 at 18:59; Status DC Iohexol (Omnipaque 300 Mg/ml) 75 ml 1X ONCE IV Last administered on 12/19/19at 18:23; Start 12/19/19 at 18:15; Stop 12/19/19 at 18:16; Status DC Info (CONTRAST GIVEN -- Rx MONITORING) 1 each PRN DAILY PRN MC SEE COMMENTS; Start 12/19/19 at 18:30; Stop 12/21/19 at 18:29; Status DC Sodium Chloride 1,000 ml @ 1,000 mls/hr 1X ONCE IV Last administered on 12/19/19at 18:57; Start 12/19/19 at 18:45; Stop 12/19/19 at 19:44; Status DC Ceftriaxone Sodium (Rocephin) 1 gm 1X ONCE IVP Last administered on 12/19/19at 18:56; Start 12/19/19 at 18:45; Stop 12/19/19 at 18:46; Status DC Piperacillin Sod/ Tazobactam Sod 3.375 gm/Sodium Chloride 50 ml @ 100 mls/hr 1X ONCE IV Last administered on 12/19/19at 19:40; Start 12/19/19 at 19:30; Stop 12/19/19 at 19:59; Status DC Vancomycin HCl 250 ml @ 250 mls/hr 1X ONCE IV Last administered on 12/19/19at 20:24; Start 12/19/19 at 19:30; Stop 12/19/19 at 20:29; Status DC Guaifenesin/ Codeine Phosphate (Robitussin Ac) 5 ml PRN Q6HRS PRN PO COUGH; Start 12/19/19 at 20:00; Stop 12/20/19 at 08:55; Status DC Ondansetron HCl (Zofran) 4 mg PRN Q8HRS PRN IV NAUSEA/VOMITING; Start 12/19/19 at 20:00; Stop 12/20/19 at 19:59; Status DC Morphine Sulfate (Morphine Sulfate) 2 mg PRN Q2HR PRN IV PAIN; Start 12/19/19 at 20:00; Stop 12/20/19 at 19:59; Status DC Sodium Chloride 1,000 ml @ 125 mls/hr Q8H IV Last administered on 12/20/19at 18:20; Start 12/19/19 at 19:50; Stop 12/20/19 at 19:49; Status DC Piperacillin Sod/ Tazobactam Sod (Zosyn Per Pharmacy) 1 each PRN DAILY PRN MC SEE COMMENTS; Start 12/19/19 at 20:30 Linezolid/Dextrose 300 ml @ 300 mls/hr Q12HR IV Last administered on 12/27/19at 21:02; Start 12/19/19 at 22:00 Piperacillin Sod/ Tazobactam Sod 4.5 gm/Sodium Chloride 100 ml @ 200 mls/hr Q6HRS IV Last administered on 12/28/19at 06:03; Start 12/20/19 at 00:00 Benzonatate (Tessalon Perle) 100 mg TID PO Last administered on 12/27/19at 21:02; Start 12/19/19 at 21:00 Guaifenesin/ Codeine Phosphate (Robitussin Ac) 10 ml PRN Q6HRS PRN PO COUGH Last administered on 12/24/19at 21:30; Start 12/19/19 at 20:45 Guaifenesin (Mucinex) 600 mg BID PO Last administered on 12/27/19at 21:02; Start 12/19/19 at 21:00 Acetaminophen (Tylenol) 650 mg Q6HRS ONCE PO Last administered on 12/19/19at 21:39; Start 12/20/19 at 00:00; Stop 12/19/19 at 21:41; Status DC Acetaminophen (Tylenol) 650 mg 1X ONCE PO Last administered on 12/20/19at 00:59; Start 12/20/19 at 00:00; Stop 12/20/19 at 00:01; Status DC Lactobacillus Rhamnosus (Culturelle) 1 cap BID PO Last administered on 12/27/19at 21:01; Start 12/20/19 at 09:00 Oseltamivir Phosphate (Tamiflu) 75 mg BID PO Last administered on 12/24/19at 21:29; Start 12/20/19 at 12:00; Stop 12/24/19 at 21:01; Status DC Tuberculin PPD (Tubersol) 0.1 ml 1X ONCE ID Last administered on 12/20/19at 15:35; Start 12/20/19 at 15:30; Stop 12/20/19 at 15:31; Status DC Sodium Chloride 1,000 ml @ 75 mls/hr 1X ONCE IV Last administered on 12/21/19at 18:34; Start 12/21/19 at 18:00; Stop 12/22/19 at 09:45; Status DC Acetaminophen/ Hydrocodone Bitart (Lortab 5/325) 1 tab PRN Q4HRS PRN PO MODERATE PAIN Last administered on 12/27/19at 23:49; Start 12/21/19 at 19:15 Zolpidem Tartrate (Ambien) 5 mg PRN QHS PRN PO INSOMNIA Last administered on 12/27/19at 23:49; Start 12/22/19 at 00:15 Docusate Sodium (Colace) 100 mg DAILY PO Last administered on 12/23/19at 08:48; Start 12/22/19 at 15:00; Stop 12/24/19 at 14:50; Status DC Lidocaine HCl (Buffered Lidocaine 1%) 3 ml STK-MED ONCE .ROUTE ; Start 12/27/19 at 07:59; Stop 12/27/19 at 07:59; Status DC Midazolam HCl (Versed) 5 mg STK-MED ONCE .ROUTE ; Start 12/27/19 at 08:14; Stop 12/27/19 at 08:16; Status DC Fentanyl Citrate (Fentanyl 5ml Vial) 250 mcg STK-MED ONCE .ROUTE ; Start 12/27/19 at 08:15; Stop 12/27/19 at 08:16; Status DC Lidocaine HCl (Buffered Lidocaine 1%) 3 ml 1X ONCE IJ Last administered on 12/27/19at 08:31; Start 12/27/19 at 08:30; Stop 12/27/19 at 08:33; Status DC Midazolam HCl (Versed) 5 mg 1X ONCE IV Last administered on 12/27/19at 08:31; Start 12/27/19 at 08:30; Stop 12/27/19 at 08:33; Status DC Fentanyl Citrate (Fentanyl 5ml Vial) 250 mcg 1X ONCE IV Last administered on 12/27/19at 08:31; Start 12/27/19 at 08:30; Stop 12/27/19 at 08:33; Status DC Active Scripts Active Reported Probiotic (L.acidoph & Paracasei,B.lactis) 1 Each Capsule 1 Each PO BID Linezolid 100 Mg/5 Ml Susp.recon 600 Mg PO BID 7 Days Augmentin 875-125 Tablet (Amoxicillin/Potassium Clav) 1 Each Tablet 1 Tab PO BID 21 Days Hydrocodone-Acetamin 5-325 mg (Hydrocodone/Acetaminophen) 1 Each Tablet 1 Tab PO Q6HRS PRN Vitals/I & O Vital Sign - Last 24 Hours 12/27/19 12/27/19 12/27/19 12/27/19 08:00 08:31 08:31 08:36 Pulse 103 89 Resp 18 17 15 B/P (MAP) 110/75 (87) Pulse Ox 96 97 O2 Delivery Room Air Nasal Cannula Nasal Cannula O2 Flow Rate 91.0 2.0 2.0 12/27/19 12/27/19 12/27/19 12/27/19 08:40 08:44 08:48 08:53 Pulse 97 87 88 80 Resp 17 16 18 14 B/P (MAP) 129/83 (98) 128/79 (95) 129/73 (91) Pulse Ox 95 95 95 95 O2 Delivery Nasal Cannula Nasal Cannula Nasal Cannula Room Air O2 Flow Rate 2.0 2.0 2.0 12/27/19 12/27/19 12/27/19 12/27/19 09:01 09:16 09:20 10:16 Pulse 75 80 81 B/P (MAP) 126/76 (93) 130/78 (95) 132/86 (101) O2 Delivery Room Air 12/27/19 12/27/19 12/27/19 12/27/19 10:33 10:46 11:46 12:02 Pulse 78 79 Resp 16 B/P (MAP) 121/83 (96) 117/80 (92) Pulse Ox 94 O2 Delivery Room Air Room Air Room Air 12/27/19 12/27/19 12/27/19 12/27/19 12:46 15:00 15:55 17:42 Temp 98.1 98.1 98.1 98.1 Pulse 78 77 Resp 16 18 18 B/P (MAP) 114/68 (83) 114/76 (89) Pulse Ox 94 93 93 O2 Delivery Room Air Room Air Room Air Room Air 12/27/19 12/27/19 12/27/19 12/27/19 19:25 20:00 20:02 21:02 Temp 98.0 98.0 Pulse 90 Resp 16 20 20 B/P (MAP) 117/77 (90) Pulse Ox 94 94 93 O2 Delivery Room Air Room Air Room Air Room Air O2 Flow Rate 2.0 12/27/19 12/27/19 12/28/19 12/28/19 23:49 23:56 00:49 04:00 Temp 98.0 97.7 98.0 97.7 Pulse 68 68 Resp 20 16 20 18 B/P (MAP) 107/71 (83) 98/68 (78) Pulse Ox 94 93 94 94 O2 Delivery Room Air Room Air Room Air Room Air O2 Flow Rate 2.0 12/28/19 07:00 Temp 98.0 98.0 Pulse 75 Resp 18 B/P (MAP) 102/61 (75) Pulse Ox 94 O2 Delivery Room Air Intake and Output 12/27/19 12/27/19 12/28/19 15:00 23:00 07:00 Intake Total 400 ml 520 ml Output Total 930 ml 850 ml 340 ml Balance -530 ml -330 ml -340 ml CYN CHANCE MD Dec 28, 2019 07:59
[2019-12-28] MEDS: BENZONATATE 100 MG CAPSULE. PO SCH ×3 (08:53→21:11)
[2019-12-28] MEDS: LACTOBACILLUS RHAMNOSUS GG 1 CAPSULE. PO SCH ×2 (08:53→21:11)
--- NOTE | 2019-12-28 09:13 | PDOC ---
Infectious Disease Note Subjective: Subjective Pt says feels better cough and sob have improved cts site pain is under control Denies fevers/chills/ N/V/D Vital Signs: Vital Signs Vital Signs Date Time Temp Pulse Resp B/P (MAP) Pulse Ox O2 Delivery O2 Flow Rate FiO2 12/28/19 07:50 Room Air 12/28/19 07:00 98.0 75 18 102/61 (75) 94 98.0 12/27/19 23:49 2.0 Physical Exam: PHYSICAL EXAM GENERAL: Propped up in bed, alert and watching TV HEENT: Oral cavity clear NECK: Supple, no JVP, no lymphadenopathy. LUNGS: Dec BS at bases, CTS Lt HEART: S1, S2 regular. ABDOMEN: Soft and nontender, BS active EXTREMITIES: No edema or cyanosis. SKIN: Warm to touch. No signs of rash NEUROLOGIC: Alert, awake and appropriate. No focal neurologic deficit. PIV ok Medications: Inpatient Meds: Current Medications Medications (Trade) Dose Ordered Sig/Sonido Start Time Stop Time Status Last Admin Dose Admin Acetaminophen (Tylenol) 650 mg 1X ONCE 12/20/19 00:00 12/20/19 00:01 DC 12/20/19 00:59 650 MG Acetaminophen/ Hydrocodone Bitart (Lortab 5/325) 1 tab PRN Q4HRS PRN 12/21/19 19:15 12/27/19 23:49 1 TAB Benzonatate (Tessalon Perle) 100 mg TID 12/19/19 21:00 12/28/19 08:53 100 MG Ceftriaxone Sodium (Rocephin) 1 gm 1X ONCE 12/19/19 18:45 12/19/19 18:46 DC 12/19/19 18:56 1 GM Docusate Sodium (Colace) 100 mg DAILY 12/22/19 15:00 12/24/19 14:50 DC 12/23/19 08:48 100 MG Fentanyl Citrate (Fentanyl 5ml Vial) 250 mcg 1X ONCE 12/27/19 08:30 12/27/19 08:33 DC 12/27/19 08:31 75 MCG Guaifenesin (Mucinex) 600 mg BID 12/19/19 21:00 12/28/19 08:53 600 MG Guaifenesin/ Codeine Phosphate (Robitussin Ac) 10 ml PRN Q6HRS PRN 12/19/19 20:45 12/24/19 21:30 10 ML Info (CONTRAST GIVEN -- Rx MONITORING) 1 each PRN DAILY PRN 12/19/19 18:30 12/21/19 18:29 DC Iohexol (Omnipaque 300 Mg/ml) 75 ml 1X ONCE 12/19/19 18:15 12/19/19 18:16 DC 12/19/19 18:23 75 ML Ketorolac Tromethamine (Toradol 30mg Vial) 30 mg 1X ONCE 12/19/19 18:00 12/19/19 18:01 DC 12/19/19 17:54 30 MG Lactobacillus Rhamnosus (Culturelle) 1 cap BID 12/20/19 09:00 12/28/19 08:53 1 CAP Lidocaine HCl (Buffered Lidocaine 1%) 3 ml 1X ONCE 12/27/19 08:30 12/27/19 08:33 DC 12/27/19 08:31 4 ML Linezolid/Dextrose 300 ml @ 300 mls/hr Q12HR 12/19/19 22:00 12/28/19 08:53 300 MLS/HR Midazolam HCl (Versed) 5 mg 1X ONCE 12/27/19 08:30 12/27/19 08:33 DC 12/27/19 08:31 3 MG Morphine Sulfate (Morphine Sulfate) 2 mg PRN Q2HR PRN 12/19/19 20:00 12/20/19 19:59 DC Ondansetron HCl (Zofran) 4 mg PRN Q8HRS PRN 12/19/19 20:00 12/20/19 19:59 DC Oseltamivir Phosphate (Tamiflu) 75 mg BID 12/20/19 12:00 12/24/19 21:01 DC 12/24/19 21:29 75 MG Piperacillin Sod/ Tazobactam Sod (Zosyn Per Pharmacy) 1 each PRN DAILY PRN 12/19/19 20:30 Piperacillin Sod/ Tazobactam Sod 3.375 gm/Sodium Chloride 50 ml @ 100 mls/hr 1X ONCE 12/19/19 19:30 12/19/19 19:59 DC 12/19/19 19:40 100 MLS/HR Piperacillin Sod/ Tazobactam Sod 4.5 gm/Sodium Chloride 100 ml @ 200 mls/hr Q6HRS 12/20/19 00:00 12/28/19 06:03 200 MLS/HR Sodium Chloride 1,000 ml @ 75 mls/hr 1X ONCE 12/21/19 18:00 12/22/19 09:45 DC 12/21/19 18:34 75 MLS/HR Tuberculin PPD (Tubersol) 0.1 ml 1X ONCE 12/20/19 15:30 12/20/19 15:31 DC 12/20/19 15:35 0.1 ML Vancomycin HCl 250 ml @ 250 mls/hr 1X ONCE 12/19/19 19:30 12/19/19 20:29 DC 12/19/19 20:24 250 MLS/HR Zolpidem Tartrate (Ambien) 5 mg PRN QHS PRN 12/22/19 00:15 12/27/19 23:49 5 MG Labs: Lab Laboratory Tests Test 12/27/19 09:20 White Blood Count 7.6 x10^3/uL (4.0-11.0) Red Blood Count 4.87 x10^6/uL (4.30-5.70) Hemoglobin 14.0 g/dL (13.0-17.5) Hematocrit 41.7 % (39.0-53.0) Mean Corpuscular Volume 86 fL (79-100) Mean Corpuscular Hemoglobin 29 pg (25-35) Mean Corpuscular Hemoglobin Concent 34 g/dL (31-37) Red Cell Distribution Width 13.8 % (11.5-14.5) Platelet Count 486 x10^3/uL (140-400) Neutrophils (%) (Auto) 65 % (31-73) Lymphocytes (%) (Auto) 26 % (24-48) Monocytes (%) (Auto) 4 % (0-9) Eosinophils (%) (Auto) 4 % (0-3) Basophils (%) (Auto) 1 % (0-3) Neutrophils # (Auto) 4.9 x10^3/uL (1.8-7.7) Lymphocytes # (Auto) 1.9 x10^3/uL (1.0-4.8) Monocytes # (Auto) 0.3 x10^3/uL (0.0-1.1) Eosinophils # (Auto) 0.3 x10^3/uL (0.0-0.7) Basophils # (Auto) 0.1 x10^3/uL (0.0-0.2) Sodium Level 142 mmol/L (136-145) Potassium Level 4.2 mmol/L (3.5-5.1) Chloride Level 107 mmol/L (98-107) Carbon Dioxide Level 26 mmol/L (21-32) Anion Gap 9 (6-14) Blood Urea Nitrogen 13 mg/dL (8-26) Creatinine 1.1 mg/dL (0.7-1.3) Estimated GFR (Cockcroft-Gault) 76.2 Glucose Level 94 mg/dL (70-99) Calcium Level 8.7 mg/dL (8.5-10.1) Micro sputum gpc, final yeast likely contamination CT Chest repeat 12/24 FINDINGS: The absence of IV contrast limits evaluation of soft tissue pathology. CARDIOVASCULAR: Unremarkable MEDIASTINUM & JASON: No adenopathy or masses. LUNGS: Paraseptal pattern emphysema affecting the upper lobes the greatest extent is redemonstrated along with scarring of the right lung apex with curvilinear density suggesting previous surgical biopsy with suture material or pleural plaque. Persistent cavitary pneumonia in the lateral left upper lobe with interval decrease in size of the cavity, now measuring 5.0 x 4.4 cm in AP by transverse diameters compared with 5.1 x 5.9 cm previously. However, interval lobar consolidation in the left lower lobe with relative sparing of the anterior and medial basal segments has occurred with additional findings of subtle multifocal bilateral pulmonary patchy airspace opacities. These are new in the interval. Also new is subsegmental atelectasis in the posterior basal right lower lobe. PLEURAL SPACE: A moderate left pleural effusion has developed from a previously small left pleural effusion. No pneumothorax. OSSEOUS & SOFT TISSUE: Unremarkable ABDOMEN: The visualized portions of the upper abdomen are unremarkable. IMPRESSION: Worsening multifocal pneumonia. Objective: Assessment: Large Left upper lobe lung abscess. HIV negative Lt pleural effusion s/p CTS 12/26,cult sent Fever.resolved Leukocytosis and bandemia - resolved Influenza (urgent care) Vaping Plan: Plan of Care cont zosyn/ linezolid f/u cults f/u labs in am d/w QUINN TIRADO MD Dec 28, 2019 09:13
[2019-12-28 11:00] VITALS: BP 117/69
[2019-12-28] MEDS: HYDROcodone/APAP 5/325MG 1 TAB TABLET PO PRN ×3 (11:02→22:40)
--- NOTE | 2019-12-28 11:47 | NUR ---
SW following. Discussed with RN, pt had chest tube placed yesterday, 2 IV abx. SW will continue to follow for any discharge planning needs.
[2019-12-28] MEDS: MICONAZOLE NITRATE 2% TOPICAL CREAM 28GM TUBE. TP SCH ×2 (14:00→21:10)
[2019-12-28] MEDS: PSYLLIUM HUSK (SUGAR FREE) 1 PKT PACKET PO SCH (14:00)
[2019-12-28] MEDS: POLYETHYLENE GLYCOL 3350 17 GM PACKET. PO SCH (14:00)
[2019-12-28 15:00] VITALS: BP 117/73
--- NOTE | 2019-12-28 16:06 | PATHOLOGY ---
Note [facility] Accession Number: [id number] TESTS RESULT FLAG UNITS REF RANGE LAB Clinician Provided Cytology Information No. of containers..01 Other (Miscellaneous) Source: LEFT PLEURAL FLUID DIAGNOSIS: LEFT PLEURAL FLUID NEGATIVE FOR MALIGNANT CELLS. REACTIVE MESOTHELIAL CELLS PRESENT WITHIN A BACKGROUND OF ACUTE AND CHRONIC INLAMMATORY CELLS. THIS INTERPRETATION INCLUDES EVALUATION OF A CELL BLOCK. Signed out by: 02 Angel Hull MD, Pathologist NPI- [id number] Performed by: Meredith Torres, Electric Train Driver ([facility]) Gross description: 01 30ML, CLOUDY YELLOW, 1 TP 1 CB /LCS 12/27/2019 2109 Local FLAG LEGEND: L-Low Normal,H-High Normal,LL-Alert Low,HH-Alert High <-Panic Low,>-Panic High,A-Abnormal,AA-Critical Abnormal Performed at: 01 [facility] [address] [place] [address] Deepak Atwood MD, 02 [facility] [address] [place] [address] Angel Hull MD, Specimen Comment: A courtesy copy of this report has been sent to [phone], [phone] Specimen Comment: [id number] Specimen Comment: Report sent to / DR CARRINGTON Specimen Comment: A duplicate report has been generated due to demographic updates. Performed at: 01 [facility] [address], [place], [place] [id number] MD Deepak Atwood MD Phone: [phone]
--- NOTE | 2019-12-28 16:51 | PDOC ---
PULMONARY PROGRESS NOTES Subjective APPETITE IS BETTER LESS SOA Vitals Vital Signs Date Time Temp Pulse Resp B/P (MAP) Pulse Ox O2 Delivery O2 Flow Rate FiO2 12/28/19 15:00 97.8 76 18 117/73 (88) 94 Room Air 97.8 12/27/19 23:49 2.0 ROS: No Nausea, No Chest Pain, No Abdominal Pain, No Increase Cough General: Alert, No acute distress Lungs: Crackles Cardiovascular: S1, S2 Abdomen: Soft, Non-tender Neuro Exam: Alert, Oriented Extremities: No Edema Skin: Warm Labs Laboratory Tests Test 12/27/19 08:23 12/27/19 09:20 Body Fluid pH 7.55 White Blood Count 7.6 x10^3/uL (4.0-11.0) Red Blood Count 4.87 x10^6/uL (4.30-5.70) Hemoglobin 14.0 g/dL (13.0-17.5) Hematocrit 41.7 % (39.0-53.0) Mean Corpuscular Volume 86 fL (79-100) Mean Corpuscular Hemoglobin 29 pg (25-35) Mean Corpuscular Hemoglobin Concent 34 g/dL (31-37) Red Cell Distribution Width 13.8 % (11.5-14.5) Platelet Count 486 x10^3/uL (140-400) Neutrophils (%) (Auto) 65 % (31-73) Lymphocytes (%) (Auto) 26 % (24-48) Monocytes (%) (Auto) 4 % (0-9) Eosinophils (%) (Auto) 4 % (0-3) Basophils (%) (Auto) 1 % (0-3) Neutrophils # (Auto) 4.9 x10^3/uL (1.8-7.7) Lymphocytes # (Auto) 1.9 x10^3/uL (1.0-4.8) Monocytes # (Auto) 0.3 x10^3/uL (0.0-1.1) Eosinophils # (Auto) 0.3 x10^3/uL (0.0-0.7) Basophils # (Auto) 0.1 x10^3/uL (0.0-0.2) Sodium Level 142 mmol/L (136-145) Potassium Level 4.2 mmol/L (3.5-5.1) Chloride Level 107 mmol/L (98-107) Carbon Dioxide Level 26 mmol/L (21-32) Anion Gap 9 (6-14) Blood Urea Nitrogen 13 mg/dL (8-26) Creatinine 1.1 mg/dL (0.7-1.3) Estimated GFR (Cockcroft-Gault) 76.2 Glucose Level 94 mg/dL (70-99) Calcium Level 8.7 mg/dL (8.5-10.1) Medications Active Scripts Medications Dose Route/Sig Max Daily Dose Days Date Category Probiotic (L.acidoph & Paracasei,B.lactis) 1 Each Capsule 1 Each PO BID 12/26/19 Reported Linezolid 100 Mg/5 Ml Susp.recon 600 Mg PO BID 7 12/26/19 Reported Augmentin 875-125 Tablet (Amoxicillin/Potassium Clav) 1 Each Tablet 1 Tab PO BID 21 12/26/19 Reported Hydrocodone-Acetamin 5-325 mg (Hydrocodone/Acetaminophen) 1 Each Tablet 1 Tab PO Q6HRS PRN 12/26/19 Reported Impression . 1. Acute hypoxic respiratory failure secondary to necrotizing pneumonia/lung abscess. Clinically, unlikely tuberculosis and also unlikely pulmonary vasculitis. Vaping may be a risk factor. 2. Possible underlying chronic obstructive pulmonary disease, smoked for 16 years. 3. History of spontaneous pneumothorax on the right side 10 years ago, requiring chest tube and no other surgical intervention. 4. Abnormal CT CHEST S/P CHEST TUBE ON LEFT 5. Influenza Impression: 1. Cavitary left midlung mass, stable to decreased in size compared to prior allowing for differences in technique. 2. Increased left mid and basilar opacities, may represent worsening adjacent pneumonia. 3. Increased small left pleural effusion. 4. Mild right basilar atelectasis. Plan . NO DRAINAGE IF REPEAT CT IS BETTER WILL PLAN ON DC CHEST TUBE AND DC HOME CHEST TUBE ON LEFT FREE FLOWING FLUID WILL FOLLOW UP ON ANALYSIS SO FAR PH HIGH HIV NEGATIVE CONTINUE ANTI BX PER ID D/W SPENCER BANDA MD Dec 28, 2019 16:51
--- NOTE | 2019-12-28 18:11 | RAD ---
CT chest without contrast dated 12/28/2019. Comparison made to 12/25/2019. CLINICAL INDICATION: Follow-up pleural effusion. TECHNIQUE: Contiguous axial imaging the chest performed without the administration of intravenous contrast. One or more of the following individualized dose reduction techniques were utilized for this examination: 1. Automated exposure control 2. Adjustment of the mA and/or kV according to patient size 3. Use of iterative reconstruction technique. FINDINGS: Heart size within normal limits. There is a tiny pericardial effusion. Nonpathologic enlarged prevascular, subcarinal and pretracheal lymph nodes. No axillary or supraclavicular lymphadenopathy. Thyroid gland unremarkable. Interval placement of left-sided pleural drain with pigtail catheter extending medially at the left base. There is been interval decrease in size of left pleural effusion with only a small amount of pleural fluid that persists. Patchy and linear opacity in the left lower lobe, improved. Wedge-shaped area of consolidation in the posterior aspect of the left upper lobe with central cavitation has slightly decreased in size, measuring 3.3 x 4.5 cm versus 4.0 x 4.4 cm previously. Mild to moderate emphysema. There is mild patchy and linear opacity at the right lung base. Biapical scarring. Limited images of upper abdomen unremarkable. No acute bony abnormality. IMPRESSION: 1. Interval placement of left-sided pleural drain with interval decrease in size of left pleural effusion. 2. Wedge-shaped cavitary focus in the posterior left upper lobe has decreased in size, possibly improving abscess. Continued follow-up imaging to ensure resolution. 3. Improving left lower lobe airspace disease with persistent mild airspace disease at the right base. Electronically signed by: Hany Melissa MD (12/28/2019 6:08 PM) [id number]
[2019-12-28 20:21] VITALS: BP 106/61
[2019-12-28] MEDS: ZOLPIDEM 5 MG TABLET. PO PRN (22:40)
[2019-12-28 22:43] VITALS: BP 114/67
[2019-12-29] MEDS: PIPERACILLIN/TAZOBACTAM 4.5 GM in IV NORMAL SALINE 100ML 100 ML IV SCH ×3 (00:15→12:11)
[2019-12-29 03:00] VITALS: BP 95/59
[2019-12-29 05:14] LABS: BASO # 0.1 x10^3/uL (0.0-0.2); BASO % 1 % (0-3); EOS # 0.5 x10^3/uL (0.0-0.7); EOS % 6 % (0-3); HEMOGLOBIN 13.9 g/dL (13.0-17.5); LYMPH # 2.6 x10^3/uL (1.0-4.8); LYMPH % 35 % (24-48); MEAN CORPUSCULAR HEMOGLOBIN 29 pg (25-35); MEAN CORPUSCULAR HGB CONC 33 g/dL (31-37); MEAN CORPUSCULAR VOLUME 86 fL (79-100); MONO # 0.3 x10^3/uL (0.0-1.1); MONO % 4 % (0-9); NEUT # 4.1 x10^3/uL (1.8-7.7); NEUT % 54 % (31-73); PLATELET COUNT 465 x10^3/uL (140-400); RED BLOOD COUNT 4.88 x10^6/uL (4.30-5.70); RED CELL DISTRIBUTION WIDTH 14.2 % (11.5-14.5); WHITE BLOOD COUNT 7.5 x10^3/uL (4.0-11.0)
[2019-12-29 05:30] LABS: ALBUMIN 2.7 g/dL (3.4-5.0); ALBUMIN/GLOBULIN RATIO 0.7 (1.0-1.7); CALCIUM 8.5 mg/dL (8.5-10.1); CREATININE 1.1 mg/dL (0.7-1.3); GFR 76.2; POTASSIUM 3.9 mmol/L (3.5-5.1); TOTAL BILIRUBIN 0.2 mg/dL (0.2-1.0); TOTAL PROTEIN 6.4 g/dL (6.4-8.2)
[2019-12-29 07:00] VITALS: BP 107/74
--- NOTE | 2019-12-29 07:21 | PDOC ---
PULMONARY PROGRESS NOTES Subjective sob better, has occ cough, ct minimal drainage Vitals Vital Signs Date Time Temp Pulse Resp B/P (MAP) Pulse Ox O2 Delivery O2 Flow Rate FiO2 12/29/19 03:00 97.8 78 16 95/59 (71) 94 Room Air 97.8 ROS: No Nausea, No Chest Pain, No Abdominal Pain, No Increase Cough General: Alert, No acute distress Lungs: Crackles, Other (l ct) Cardiovascular: S1, S2 Abdomen: Soft, Non-tender Neuro Exam: Alert, Oriented Extremities: No Edema Skin: Warm Labs Laboratory Tests Test 12/27/19 08:23 12/27/19 09:20 12/29/19 04:30 Body Fluid pH 7.55 White Blood Count 7.6 x10^3/uL (4.0-11.0) 7.5 x10^3/uL (4.0-11.0) Red Blood Count 4.87 x10^6/uL (4.30-5.70) 4.88 x10^6/uL (4.30-5.70) Hemoglobin 14.0 g/dL (13.0-17.5) 13.9 g/dL (13.0-17.5) Hematocrit 41.7 % (39.0-53.0) 42.0 % (39.0-53.0) Mean Corpuscular Volume 86 fL (79-100) 86 fL (79-100) Mean Corpuscular Hemoglobin 29 pg (25-35) 29 pg (25-35) Mean Corpuscular Hemoglobin Concent 34 g/dL (31-37) 33 g/dL (31-37) Red Cell Distribution Width 13.8 % (11.5-14.5) 14.2 % (11.5-14.5) Platelet Count 486 x10^3/uL (140-400) 465 x10^3/uL (140-400) Neutrophils (%) (Auto) 65 % (31-73) 54 % (31-73) Lymphocytes (%) (Auto) 26 % (24-48) 35 % (24-48) Monocytes (%) (Auto) 4 % (0-9) 4 % (0-9) Eosinophils (%) (Auto) 4 % (0-3) 6 % (0-3) Basophils (%) (Auto) 1 % (0-3) 1 % (0-3) Neutrophils # (Auto) 4.9 x10^3/uL (1.8-7.7) 4.1 x10^3/uL (1.8-7.7) Lymphocytes # (Auto) 1.9 x10^3/uL (1.0-4.8) 2.6 x10^3/uL (1.0-4.8) Monocytes # (Auto) 0.3 x10^3/uL (0.0-1.1) 0.3 x10^3/uL (0.0-1.1) Eosinophils # (Auto) 0.3 x10^3/uL (0.0-0.7) 0.5 x10^3/uL (0.0-0.7) Basophils # (Auto) 0.1 x10^3/uL (0.0-0.2) 0.1 x10^3/uL (0.0-0.2) Sodium Level 142 mmol/L (136-145) 144 mmol/L (136-145) Potassium Level 4.2 mmol/L (3.5-5.1) 3.9 mmol/L (3.5-5.1) Chloride Level 107 mmol/L (98-107) 107 mmol/L (98-107) Carbon Dioxide Level 26 mmol/L (21-32) 26 mmol/L (21-32) Anion Gap 9 (6-14) 11 (6-14) Blood Urea Nitrogen 13 mg/dL (8-26) 15 mg/dL (8-26) Creatinine 1.1 mg/dL (0.7-1.3) 1.1 mg/dL (0.7-1.3) Estimated GFR (Cockcroft-Gault) 76.2 76.2 Glucose Level 94 mg/dL (70-99) 108 mg/dL (70-99) Calcium Level 8.7 mg/dL (8.5-10.1) 8.5 mg/dL (8.5-10.1) BUN/Creatinine Ratio 14 (6-20) Total Bilirubin 0.2 mg/dL (0.2-1.0) Aspartate Amino Transf (AST/SGOT) 25 U/L (15-37) Alanine Aminotransferase (ALT/SGPT) 55 U/L (16-63) Alkaline Phosphatase 60 U/L (46-116) Total Protein 6.4 g/dL (6.4-8.2) Albumin 2.7 g/dL (3.4-5.0) Albumin/Globulin Ratio 0.7 (1.0-1.7) Laboratory Tests Test 12/29/19 04:30 White Blood Count 7.5 x10^3/uL (4.0-11.0) Red Blood Count 4.88 x10^6/uL (4.30-5.70) Hemoglobin 13.9 g/dL (13.0-17.5) Hematocrit 42.0 % (39.0-53.0) Mean Corpuscular Volume 86 fL (79-100) Mean Corpuscular Hemoglobin 29 pg (25-35) Mean Corpuscular Hemoglobin Concent 33 g/dL (31-37) Red Cell Distribution Width 14.2 % (11.5-14.5) Platelet Count 465 x10^3/uL (140-400) Neutrophils (%) (Auto) 54 % (31-73) Lymphocytes (%) (Auto) 35 % (24-48) Monocytes (%) (Auto) 4 % (0-9) Eosinophils (%) (Auto) 6 % (0-3) Basophils (%) (Auto) 1 % (0-3) Neutrophils # (Auto) 4.1 x10^3/uL (1.8-7.7) Lymphocytes # (Auto) 2.6 x10^3/uL (1.0-4.8) Monocytes # (Auto) 0.3 x10^3/uL (0.0-1.1) Eosinophils # (Auto) 0.5 x10^3/uL (0.0-0.7) Basophils # (Auto) 0.1 x10^3/uL (0.0-0.2) Sodium Level 144 mmol/L (136-145) Potassium Level 3.9 mmol/L (3.5-5.1) Chloride Level 107 mmol/L (98-107) Carbon Dioxide Level 26 mmol/L (21-32) Anion Gap 11 (6-14) Blood Urea Nitrogen 15 mg/dL (8-26) Creatinine 1.1 mg/dL (0.7-1.3) Estimated GFR (Cockcroft-Gault) 76.2 BUN/Creatinine Ratio 14 (6-20) Glucose Level 108 mg/dL (70-99) Calcium Level 8.5 mg/dL (8.5-10.1) Total Bilirubin 0.2 mg/dL (0.2-1.0) Aspartate Amino Transf (AST/SGOT) 25 U/L (15-37) Alanine Aminotransferase (ALT/SGPT) 55 U/L (16-63) Alkaline Phosphatase 60 U/L (46-116) Total Protein 6.4 g/dL (6.4-8.2) Albumin 2.7 g/dL (3.4-5.0) Albumin/Globulin Ratio 0.7 (1.0-1.7) Medications Active Scripts Medications Dose Route/Sig Max Daily Dose Days Date Category Probiotic (L.acidoph & Paracasei,B.lactis) 1 Each Capsule 1 Each PO BID 12/26/19 Reported Linezolid 100 Mg/5 Ml Susp.recon 600 Mg PO BID 7 12/26/19 Reported Augmentin 875-125 Tablet (Amoxicillin/Potassium Clav) 1 Each Tablet 1 Tab PO BID 21 12/26/19 Reported Hydrocodone-Acetamin 5-325 mg (Hydrocodone/Acetaminophen) 1 Each Tablet 1 Tab PO Q6HRS PRN 12/26/[address] done 12/27 1. Interval placement of left-sided pleural drain with interval decrease in size of left pleural effusion. 2. Wedge-shaped cavitary focus in the posterior left upper lobe has decreased in size, possibly improving abscess. Continued follow-up imaging to ensure resolution. 3. Improving left lower lobe airspace disease with persistent mild airspace disease at the right base. Impression . 1. Acute hypoxic respiratory failure secondary to necrotizing pneumonia/lung abscess. Clinically, unlikely tuberculosis and also unlikely pulmonary vasculitis. Vaping may be a risk factor. 2. Possible underlying chronic obstructive pulmonary disease, smoked for 16 years. 3. History of spontaneous pneumothorax on the right side 10 years ago, requiring chest tube and no other surgical intervention. 4. Abnormal CT CHEST S/P CHEST TUBE ON LEFT 5. Influenza Plan . ct reviewed, small pleural effusion, will dc chest tube,....ct dced will do stat pcxr...cxr reviewed, Left chest tube has been removed. Small left apical pneumothorax is stable. Stable lung disease at the left lower lobe. No pleural effusion. fu pleural fluid cxs abx per id fu ct in 4-6 wks hiv neg ok to dc from pulm stand point ZENOBIA JUNG MD Dec 29, 2019 07:21
--- NOTE | 2019-12-29 08:18 | RAD ---
AP chest x-ray HISTORY: Chest tube removed. Comparison: CT chest December 28, 2019. FINDINGS: Heart size normal. Mediastinal silhouette is normal. Since the prior exam the left chest tube has been removed. There is a small left apical pneumothorax which is stable to the prior CT study from one day ago. No residual pleural effusion evident. Opacity with cavitation at the upper lateral subpleural lower lobe or lingula stable. Heterogeneous opacity along the medial basilar left lower lobe with mild elevation of left diaphragm stable. Surgical changes and emphysematous changes of the right lung apex stable. Bones are unremarkable. IMPRESSION: Left chest tube has been removed. Small left apical pneumothorax is stable. Stable lung disease at the left lower lobe. No pleural effusion. Electronically signed by: Edilson Patel MD (12/29/2019 8:15 AM) [email or web address]
[2019-12-29] MEDS: MICONAZOLE NITRATE 2% TOPICAL CREAM 28GM TUBE. TP SCH ×2 (08:53→21:12)
[2019-12-29] MEDS: LACTOBACILLUS RHAMNOSUS GG 1 CAPSULE. PO SCH ×2 (08:53→21:11)
[2019-12-29] MEDS: BENZONATATE 100 MG CAPSULE. PO SCH ×3 (08:54→21:11)
[2019-12-29] MEDS: PSYLLIUM HUSK (SUGAR FREE) 1 PKT PACKET PO SCH (08:55)
[2019-12-29] MEDS: DOCUSATE SODIUM 100 MG CAPSULE. PO SCH (08:55)
[2019-12-29] MEDS: POLYETHYLENE GLYCOL 3350 17 GM PACKET. PO SCH (08:56)
--- NOTE | 2019-12-29 09:57 | PDOC ---
PROGRESS NOTES Chief Complaint Chief Complaint IMPRESSION pulmonary abscess Small left apical pneumothorax is stable. Stable lung disease at the left lower lobe. No pleural effusion. sepsis acute hypoxic repsiratory failure isolation for flu, r/o TB vaping related lung injury CONTINUE Zosyn (12/18) // linezolid (12/18) History of Present Illness History of Present Illness Mr Nix is a 34yo M w/ PMHx spontaneous PTX on right side who presented with persistent fever, cough, treated outpatient by PCP and urgent care for influenza who arrived on 12/19/2019 with multifocal pneumonia and fever 101.5F. Pulmonology and ID consulted. 12/19: Fever 100.5F 12/20: Afebrile 12/21: Isolation for influenza 12/22: HIV negative 12/23: TB negative 12/24: Improved symptoms 12/25: CT chest with worsening multifocal pneumonia, but improvement in left upper cavitation. Pleural effusion much larger, remained inpatient for chest tube placement 12/26: Tolerated left sided chest tube well with serosangiounous drainage of 500cc immediately with some coughing noted. No chest pain. Afebrile since 12/20/19 Overnight no events. 600cc fluid out of chest tube Breathing well. Has pain and pruritis in his scrotum and groin area. 12/28 less soa chest tube out 38 min pt exam, chart review, > 50% of time spent with exam, chart review, pt care coordination Vitals Vitals Vital Signs Date Time Temp Pulse Resp B/P (MAP) Pulse Ox O2 Delivery O2 Flow Rate FiO2 12/29/19 07:00 98.2 73 20 107/74 (85) 93 Room Air 98.2 Physical Exam Physical Exam GENERAL: Propped up in bed, alert and watching TV HEENT: Oral cavity clear NECK: Supple, no JVP, no lymphadenopathy. LUNGS: Dec BS at bases, CTS Lt HEART: S1, S2 regular. ABDOMEN: Soft and nontender, BS active EXTREMITIES: No edema or cyanosis. SKIN: Warm to touch. No signs of rash NEUROLOGIC: Alert, awake and appropriate. No focal neurologic deficit. PIV ok General: Alert, Oriented X3, Cooperative, No acute distress Heart: Regular rate Lungs: Crackles Abdomen: Normal bowel sounds, Soft Extremities: No clubbing, No cyanosis, No edema Skin: No rashes, No significant lesion Labs LABS Signed PATIENT: ABDIFATAH NIX LACCOUNT: [id number] : 1985 LOCATION: [facility] AGE: 34 SEX: M EXAM STATUS: ADM IN ORD. PHYSICIAN: SPENCER CHASE MD REASON: abscess PROCEDURE: CT CHEST WO CONTRAST EXAM: CT Chest without IV contrast INDICATION: Follow-up lung abscess. TECHNIQUE: Multi-detector row CT images were acquired from the thoracic inlet through the upper abdomen without the use of IV contrast. Sagittal and coronal images were acquired from the transaxial data. All CT scans performed at this facility utilize dose optimization techniques as appropriate to the exam, including the following: Automated exposure control and adjustment of the mA and/or KV according to patient size (this includes techniques or standardized protocols for targeted exams where dose is indication/reason for exam). COMPARISON: Chest CT without IV contrast of 12/19/2019. FINDINGS: The absence of IV contrast limits evaluation of soft tissue pathology. CARDIOVASCULAR: Unremarkable MEDIASTINUM & JASON: No adenopathy or masses. LUNGS: Paraseptal pattern emphysema affecting the upper lobes the greatest extent is redemonstrated along with scarring of the right lung apex with curvilinear density suggesting previous surgical biopsy with suture material or pleural plaque. Persistent cavitary pneumonia in the lateral left upper lobe with interval decrease in size of the cavity, now measuring 5.0 x 4.4 cm in AP by transverse diameters compared with 5.1 x 5.9 cm previously. However, interval lobar consolidation in the left lower lobe with relative sparing of the anterior and medial basal segments has occurred with additional findings of subtle multifocal bilateral pulmonary patchy airspace opacities. These are new in the interval. Also new is subsegmental atelectasis in the posterior basal right lower lobe. PLEURAL SPACE: A moderate left pleural effusion has developed from a previously small left pleural effusion. No pneumothorax. OSSEOUS & SOFT TISSUE: Unremarkable ABDOMEN: The visualized portions of the upper abdomen are unremarkable. IMPRESSION: Worsening multifocal pneumonia. Electronically signed by: Anel Guo MD (12/25/2019 4:04 PM) [id number] DICTATED and SIGNED BY: ANEL GUO MD AP chest x-ray HISTORY: Chest tube removed. Comparison: CT chest December 28, 2019. FINDINGS: Heart size normal. Mediastinal silhouette is normal. Since the prior exam the left chest tube has been removed. There is a small left apical pneumothorax which is stable to the prior CT study from one day ago. No residual pleural effusion evident. Opacity with cavitation at the upper lateral subpleural lower lobe or lingula stable. Heterogeneous opacity along the medial basilar left lower lobe with mild elevation of left diaphragm stable. Surgical changes and emphysematous changes of the right lung apex stable. Bones are unremarkable. IMPRESSION: Left chest tube has been removed. Small left apical pneumothorax is stable. Stable lung disease at the left lower lobe. No pleural effusion. Electronically signed by: Gregorio Patel MD (12/29/2019 8:15 AM) [id number] DICTATED and SIGNED BY: GREGORIO PATEL MD DATE: 12/29/19 0815 Laboratory Tests Test 12/29/19 04:30 White Blood Count 7.5 x10^3/uL (4.0-11.0) Red Blood Count 4.88 x10^6/uL (4.30-5.70) Hemoglobin 13.9 g/dL (13.0-17.5) Hematocrit 42.0 % (39.0-53.0) Mean Corpuscular Volume 86 fL (79-100) Mean Corpuscular Hemoglobin 29 pg (25-35) Mean Corpuscular Hemoglobin Concent 33 g/dL (31-37) Red Cell Distribution Width 14.2 % (11.5-14.5) Platelet Count 465 x10^3/uL (140-400) Neutrophils (%) (Auto) 54 % (31-73) Lymphocytes (%) (Auto) 35 % (24-48) Monocytes (%) (Auto) 4 % (0-9) Eosinophils (%) (Auto) 6 % (0-3) Basophils (%) (Auto) 1 % (0-3) Neutrophils # (Auto) 4.1 x10^3/uL (1.8-7.7) Lymphocytes # (Auto) 2.6 x10^3/uL (1.0-4.8) Monocytes # (Auto) 0.3 x10^3/uL (0.0-1.1) Eosinophils # (Auto) 0.5 x10^3/uL (0.0-0.7) Basophils # (Auto) 0.1 x10^3/uL (0.0-0.2) Sodium Level 144 mmol/L (136-145) Potassium Level 3.9 mmol/L (3.5-5.1) Chloride Level 107 mmol/L (98-107) Carbon Dioxide Level 26 mmol/L (21-32) Anion Gap 11 (6-14) Blood Urea Nitrogen 15 mg/dL (8-26) Creatinine 1.1 mg/dL (0.7-1.3) Estimated GFR (Cockcroft-Gault) 76.2 BUN/Creatinine Ratio 14 (6-20) Glucose Level 108 mg/dL (70-99) Calcium Level 8.5 mg/dL (8.5-10.1) Total Bilirubin 0.2 mg/dL (0.2-1.0) Aspartate Amino Transf (AST/SGOT) 25 U/L (15-37) Alanine Aminotransferase (ALT/SGPT) 55 U/L (16-63) Alkaline Phosphatase 60 U/L (46-116) Total Protein 6.4 g/dL (6.4-8.2) Albumin 2.7 g/dL (3.4-5.0) Albumin/Globulin Ratio 0.7 (1.0-1.7) Assessment and Plan Assessmemt and Plan Problems Medical Problems: (1) Leukocytosis Status: Acute (2) Pulmonary abscess Status: Acute Comment Review of Relevant I have reviewed the following items alysa (where applicable) has been applied. Labs Laboratory Tests Test 12/29/19 04:30 White Blood Count 7.5 x10^3/uL (4.0-11.0) Red Blood Count 4.88 x10^6/uL (4.30-5.70) Hemoglobin 13.9 g/dL (13.0-17.5) Hematocrit 42.0 % (39.0-53.0) Mean Corpuscular Volume 86 fL (79-100) Mean Corpuscular Hemoglobin 29 pg (25-35) Mean Corpuscular Hemoglobin Concent 33 g/dL (31-37) Red Cell Distribution Width 14.2 % (11.5-14.5) Platelet Count 465 x10^3/uL (140-400) Neutrophils (%) (Auto) 54 % (31-73) Lymphocytes (%) (Auto) 35 % (24-48) Monocytes (%) (Auto) 4 % (0-9) Eosinophils (%) (Auto) 6 % (0-3) Basophils (%) (Auto) 1 % (0-3) Neutrophils # (Auto) 4.1 x10^3/uL (1.8-7.7) Lymphocytes # (Auto) 2.6 x10^3/uL (1.0-4.8) Monocytes # (Auto) 0.3 x10^3/uL (0.0-1.1) Eosinophils # (Auto) 0.5 x10^3/uL (0.0-0.7) Basophils # (Auto) 0.1 x10^3/uL (0.0-0.2) Sodium Level 144 mmol/L (136-145) Potassium Level 3.9 mmol/L (3.5-5.1) Chloride Level 107 mmol/L (98-107) Carbon Dioxide Level 26 mmol/L (21-32) Anion Gap 11 (6-14) Blood Urea Nitrogen 15 mg/dL (8-26) Creatinine 1.1 mg/dL (0.7-1.3) Estimated GFR (Cockcroft-Gault) 76.2 BUN/Creatinine Ratio 14 (6-20) Glucose Level 108 mg/dL (70-99) Calcium Level 8.5 mg/dL (8.5-10.1) Total Bilirubin 0.2 mg/dL (0.2-1.0) Aspartate Amino Transf (AST/SGOT) 25 U/L (15-37) Alanine Aminotransferase (ALT/SGPT) 55 U/L (16-63) Alkaline Phosphatase 60 U/L (46-116) Total Protein 6.4 g/dL (6.4-8.2) Albumin 2.7 g/dL (3.4-5.0) Albumin/Globulin Ratio 0.7 (1.0-1.7) Laboratory Tests Test 12/29/19 04:30 White Blood Count 7.5 x10^3/uL (4.0-11.0) Red Blood Count 4.88 x10^6/uL (4.30-5.70) Hemoglobin 13.9 g/dL (13.0-17.5) Hematocrit 42.0 % (39.0-53.0) Mean Corpuscular Volume 86 fL (79-100) Mean Corpuscular Hemoglobin 29 pg (25-35) Mean Corpuscular Hemoglobin Concent 33 g/dL (31-37) Red Cell Distribution Width 14.2 % (11.5-14.5) Platelet Count 465 x10^3/uL (140-400) Neutrophils (%) (Auto) 54 % (31-73) Lymphocytes (%) (Auto) 35 % (24-48) Monocytes (%) (Auto) 4 % (0-9) Eosinophils (%) (Auto) 6 % (0-3) Basophils (%) (Auto) 1 % (0-3) Neutrophils # (Auto) 4.1 x10^3/uL (1.8-7.7) Lymphocytes # (Auto) 2.6 x10^3/uL (1.0-4.8) Monocytes # (Auto) 0.3 x10^3/uL (0.0-1.1) Eosinophils # (Auto) 0.5 x10^3/uL (0.0-0.7) Basophils # (Auto) 0.1 x10^3/uL (0.0-0.2) Sodium Level 144 mmol/L (136-145) Potassium Level 3.9 mmol/L (3.5-5.1) Chloride Level 107 mmol/L (98-107) Carbon Dioxide Level 26 mmol/L (21-32) Anion Gap 11 (6-14) Blood Urea Nitrogen 15 mg/dL (8-26) Creatinine 1.1 mg/dL (0.7-1.3) Estimated GFR (Cockcroft-Gault) 76.2 BUN/Creatinine Ratio 14 (6-20) Glucose Level 108 mg/dL (70-99) Calcium Level 8.5 mg/dL (8.5-10.1) Total Bilirubin 0.2 mg/dL (0.2-1.0) Aspartate Amino Transf (AST/SGOT) 25 U/L (15-37) Alanine Aminotransferase (ALT/SGPT) 55 U/L (16-63) Alkaline Phosphatase 60 U/L (46-116) Total Protein 6.4 g/dL (6.4-8.2) Albumin 2.7 g/dL (3.4-5.0) Albumin/Globulin Ratio 0.7 (1.0-1.7) Microbiology 3/12/20 - Final, Complete 12/20/19 - Final, Complete 12/20/19 - Final, Complete 12/20/19 Gram Stain Evaluation - Final, Complete 12/20/19 Sputum Culture - Final, Complete 12/20/19 Sputum Result 1 - Final, Complete 12/20/19 Sputum Result 2 - Final, Complete 12/19/19 Blood Culture - Final, Complete NO GROWTH AFTER 5 DAYS Medications Current Medications Ketorolac Tromethamine (Toradol 30mg Vial) 30 mg STK-MED ONCE .ROUTE ; Start 12/19/19 at 17:48; Stop 12/19/19 at 17:48; Status DC Ketorolac Tromethamine (Toradol 30mg Vial) 30 mg 1X ONCE IVP Last administered on 12/19/19at 17:54; Start 12/19/19 at 18:00; Stop 12/19/19 at 18:01; Status DC Sodium Chloride 1,000 ml @ 1,000 mls/hr 1X ONCE IV Last administered on 12/19/19at 17:54; Start 12/19/19 at 18:00; Stop 12/19/19 at 18:59; Status DC Iohexol (Omnipaque 300 Mg/ml) 75 ml 1X ONCE IV Last administered on 12/19/19at 18:23; Start 12/19/19 at 18:15; Stop 12/19/19 at 18:16; Status DC Info (CONTRAST GIVEN -- Rx MONITORING) 1 each PRN DAILY PRN MC SEE COMMENTS; Start 12/19/19 at 18:30; Stop 12/21/19 at 18:29; Status DC Sodium Chloride 1,000 ml @ 1,000 mls/hr 1X ONCE IV Last administered on 12/19/19at 18:57; Start 12/19/19 at 18:45; Stop 12/19/19 at 19:44; Status DC Ceftriaxone Sodium (Rocephin) 1 gm 1X ONCE IVP Last administered on 12/19/19at 18:56; Start 12/19/19 at 18:45; Stop 12/19/19 at 18:46; Status DC Piperacillin Sod/ Tazobactam Sod 3.375 gm/Sodium Chloride 50 ml @ 100 mls/hr 1X ONCE IV Last administered on 12/19/19at 19:40; Start 12/19/19 at 19:30; Stop 12/19/19 at 19:59; Status DC Vancomycin HCl 250 ml @ 250 mls/hr 1X ONCE IV Last administered on 12/19/19at 20:24; Start 12/19/19 at 19:30; Stop 12/19/19 at 20:29; Status DC Guaifenesin/ Codeine Phosphate (Robitussin Ac) 5 ml PRN Q6HRS PRN PO COUGH; Start 12/19/19 at 20:00; Stop 12/20/19 at 08:55; Status DC Ondansetron HCl (Zofran) 4 mg PRN Q8HRS PRN IV NAUSEA/VOMITING; Start 12/19/19 at 20:00; Stop 12/20/19 at 19:59; Status DC Morphine Sulfate (Morphine Sulfate) 2 mg PRN Q2HR PRN IV PAIN; Start 12/19/19 at 20:00; Stop 12/20/19 at 19:59; Status DC Sodium Chloride 1,000 ml @ 125 mls/hr Q8H IV Last administered on 12/20/19at 18:20; Start 12/19/19 at 19:50; Stop 12/20/19 at 19:49; Status DC Piperacillin Sod/ Tazobactam Sod (Zosyn Per Pharmacy) 1 each PRN DAILY PRN MC SEE COMMENTS; Start 12/19/19 at 20:30 Linezolid/Dextrose 300 ml @ 300 mls/hr Q12HR IV Last administered on 12/29/19at 08:55; Start 12/19/19 at 22:00 Piperacillin Sod/ Tazobactam Sod 4.5 gm/Sodium Chloride 100 ml @ 200 mls/hr Q6HRS IV Last administered on 12/29/19at 06:37; Start 12/20/19 at 00:00 Benzonatate (Tessalon Perle) 100 mg TID PO Last administered on 12/29/19at 08:54; Start 12/19/19 at 21:00 Guaifenesin/ Codeine Phosphate (Robitussin Ac) 10 ml PRN Q6HRS PRN PO COUGH Last administered on 12/24/19at 21:30; Start 12/19/19 at 20:45 Guaifenesin (Mucinex) 600 mg BID PO Last administered on 12/29/19at 08:54; Start 12/19/19 at 21:00 Acetaminophen (Tylenol) 650 mg Q6HRS ONCE PO Last administered on 12/19/19at 21:39; Start 12/20/19 at 00:00; Stop 12/19/19 at 21:41; Status DC Acetaminophen (Tylenol) 650 mg 1X ONCE PO Last administered on 12/20/19at 00:59; Start 12/20/19 at 00:00; Stop 12/20/19 at 00:01; Status DC Lactobacillus Rhamnosus (Culturelle) 1 cap BID PO Last administered on 12/29/19at 08:53; Start 12/20/19 at 09:00 Oseltamivir Phosphate (Tamiflu) 75 mg BID PO Last administered on 12/24/19at 21:29; Start 12/20/19 at 12:00; Stop 12/24/19 at 21:01; Status DC Tuberculin PPD (Tubersol) 0.1 ml 1X ONCE ID Last administered on 12/20/19at 15:35; Start 12/20/19 at 15:30; Stop 12/20/19 at 15:31; Status DC Sodium Chloride 1,000 ml @ 75 mls/hr 1X ONCE IV Last administered on 12/21/19at 18:34; Start 12/21/19 at 18:00; Stop 12/22/19 at 09:45; Status DC Acetaminophen/ Hydrocodone Bitart (Lortab 5/325) 1 tab PRN Q4HRS PRN PO MODERATE PAIN Last administered on 12/28/19 22:40; Start 12/21/19 at 19:15 Zolpidem Tartrate (Ambien) 5 mg PRN QHS PRN PO INSOMNIA Last administered on 12/28/19at 22:40; Start 12/22/19 at 00:15 Docusate Sodium (Colace) 100 mg DAILY PO Last administered on 12/23/19at 08:48; Start 12/22/19 at 15:00; Stop 12/24/19 at 14:50; Status DC Lidocaine HCl (Buffered Lidocaine 1%) 3 ml STK-MED ONCE .ROUTE ; Start 12/27/19 at 07:59; Stop 12/27/19 at 07:59; Status DC Midazolam HCl (Versed) 5 mg STK-MED ONCE .ROUTE ; Start 12/27/19 at 08:14; Stop 12/27/19 at 08:16; Status DC Fentanyl Citrate (Fentanyl 5ml Vial) 250 mcg STK-MED ONCE .ROUTE ; Start 12/27/19 at 08:15; Stop 12/27/19 at 08:16; Status DC Lidocaine HCl (Buffered Lidocaine 1%) 3 ml 1X ONCE IJ Last administered on 12/27/19at 08:31; Start 12/27/19 at 08:30; Stop 12/27/19 at 08:33; Status DC Midazolam HCl (Versed) 5 mg 1X ONCE IV Last administered on 12/27/19at 08:31; Start 12/27/19 at 08:30; Stop 12/27/19 at 08:33; Status DC Fentanyl Citrate (Fentanyl 5ml Vial) 250 mcg 1X ONCE IV Last administered on 12/27/19at 08:31; Start 12/27/19 at 08:30; Stop 12/27/19 at 08:33; Status DC Docusate Sodium (Colace) 100 mg DAILY PO ; Start 12/29/19 at 09:00 Miconazole Nitrate (Monistat-Derm) 1 lnida BID TP Last administered on 12/29/19at 08:53; Start 12/28/19 at 15:00 Polyethylene Glycol (miraLAX PACKET) 17 gm DAILY PO Last administered on 12/28/19at 14:00; Start 12/28/19 at 15:00 Psyllium Hydrophilic Mucilloid (Metamucil Fiber Packet) 1 pkt DAILY PO Last administered on 12/28/19at 14:00; Start 12/28/19 at 15:00 Active Scripts Active Reported Probiotic (L.acidoph & Paracasei,B.lactis) 1 Each Capsule 1 Each PO BID Linezolid 100 Mg/5 Ml Susp.recon 600 Mg PO BID 7 Days Augmentin 875-125 Tablet (Amoxicillin/Potassium Clav) 1 Each Tablet 1 Tab PO BID 21 Days Hydrocodone-Acetamin 5-325 mg (Hydrocodone/Acetaminophen) 1 Each Tablet 1 Tab PO Q6HRS PRN Vitals/I & O Vital Sign - Last 24 Hours 12/28/19 12/28/19 12/28/19 12/28/19 11:00 11:02 12:06 15:00 Temp 98.2 97.8 98.2 97.8 Pulse 69 76 Resp 12 18 B/P (MAP) 117/69 (85) 117/73 (88) Pulse Ox 93 94 O2 Delivery Room Air Room Air Room Air Room Air 12/28/19 12/28/19 12/28/19 12/28/19 17:43 19:02 20:00 20:21 Temp 97.6 97.6 Pulse 76 Resp 18 B/P (MAP) 106/61 (76) Pulse Ox 95 O2 Delivery Room Air Room Air Room Air Room Air 12/28/19 12/28/19 12/28/19 12/29/19 22:40 22:43 23:40 03:00 Temp 97.7 97.8 97.7 97.8 Pulse 71 78 Resp 20 18 20 16 B/P (MAP) 114/67 (83) 95/59 (71) Pulse Ox 95 93 93 94 O2 Delivery Room Air Room Air Room Air Room Air 12/29/19 07:00 Temp 98.2 98.2 Pulse 73 Resp 20 B/P (MAP) 107/74 (85) Pulse Ox 93 O2 Delivery Room Air Intake and Output 12/28/19 12/28/19 12/29/19 15:00 23:00 07:00 Intake Total 700 ml Output Total 400 ml 860 ml 10 ml Balance 300 ml -860 ml -10 ml VITALY RAMIREZ MD Dec 29, 2019 09:57
[2019-12-29 11:00] VITALS: BP 111/68
--- NOTE | 2019-12-29 11:06 | PDOC ---
Infectious Disease Note Subjective Subjective Feeling better over-all Hoping to go home soon CT has been removed cough and sob have improved Denies fevers/chills/ N/V/D ROS ROS per HPI Vital Sign Vital Signs Vital Signs Date Time Temp Pulse Resp B/P (MAP) Pulse Ox O2 Delivery O2 Flow Rate FiO2 12/29/19 07:00 98.2 73 20 107/74 (85) 93 Room Air 98.2 Physical Exam PHYSICAL EXAM GENERAL: Propped up in bed, alert and watching TV HEENT: Oral cavity clear NECK: Supple, no JVP, no lymphadenopathy. LUNGS: Dec BS at bases, Left chest tube out HEART: S1, S2 regular. ABDOMEN: Soft and nontender, BS active EXTREMITIES: No edema or cyanosis. SKIN: Warm to touch. No signs of rash NEUROLOGIC: Alert, awake and appropriate. No focal neurologic deficit. PIV ok Labs Lab Laboratory Tests Test 12/29/19 04:30 White Blood Count 7.5 x10^3/uL (4.0-11.0) Red Blood Count 4.88 x10^6/uL (4.30-5.70) Hemoglobin 13.9 g/dL (13.0-17.5) Hematocrit 42.0 % (39.0-53.0) Mean Corpuscular Volume 86 fL (79-100) Mean Corpuscular Hemoglobin 29 pg (25-35) Mean Corpuscular Hemoglobin Concent 33 g/dL (31-37) Red Cell Distribution Width 14.2 % (11.5-14.5) Platelet Count 465 x10^3/uL (140-400) Neutrophils (%) (Auto) 54 % (31-73) Lymphocytes (%) (Auto) 35 % (24-48) Monocytes (%) (Auto) 4 % (0-9) Eosinophils (%) (Auto) 6 % (0-3) Basophils (%) (Auto) 1 % (0-3) Neutrophils # (Auto) 4.1 x10^3/uL (1.8-7.7) Lymphocytes # (Auto) 2.6 x10^3/uL (1.0-4.8) Monocytes # (Auto) 0.3 x10^3/uL (0.0-1.1) Eosinophils # (Auto) 0.5 x10^3/uL (0.0-0.7) Basophils # (Auto) 0.1 x10^3/uL (0.0-0.2) Sodium Level 144 mmol/L (136-145) Potassium Level 3.9 mmol/L (3.5-5.1) Chloride Level 107 mmol/L (98-107) Carbon Dioxide Level 26 mmol/L (21-32) Anion Gap 11 (6-14) Blood Urea Nitrogen 15 mg/dL (8-26) Creatinine 1.1 mg/dL (0.7-1.3) Estimated GFR (Cockcroft-Gault) 76.2 BUN/Creatinine Ratio 14 (6-20) Glucose Level 108 mg/dL (70-99) Calcium Level 8.5 mg/dL (8.5-10.1) Total Bilirubin 0.2 mg/dL (0.2-1.0) Aspartate Amino Transf (AST/SGOT) 25 U/L (15-37) Alanine Aminotransferase (ALT/SGPT) 55 U/L (16-63) Alkaline Phosphatase 60 U/L (46-116) Total Protein 6.4 g/dL (6.4-8.2) Albumin 2.7 g/dL (3.4-5.0) Albumin/Globulin Ratio 0.7 (1.0-1.7) CXR, 12/28 IMPRESSION: Left chest tube has been removed. Small left apical pneumothorax is stable. Stable lung disease at the left lower lobe. No pleural effusion. Micro Pleural fluid AFB SPECIMEN PROCESSING Final Concentration AFB CULTURE FINAL PENDING AFB CULTURE GRAM STAIN Final Negative FUNGAL CULTURE,OTHER PENDING AMY CULT RES 1 PENDING Objective Assessment Large left upper lobe lung abscess. HIV negative. sputum neg Left pleural effusion s/p CT 12/26 and removed, 12/28 sm apical PTX Fever. Resolved Leukocytosis and bandemia - resolved Influenza (urgent care) Vaping Plan Plan of Care Zosyn (12/18) and linezolid (12/18) AFB stain neg f/u cultures d/w RN CT removed and doing well Rx for Augmentin and Zyvox already provided by Dr. Neil and in chart D/c home ok when ok with Pulm D/w nursing Attending Co-Sign Attending Co-Sign The patient was seen and interviewed as well as examined at the bedside. The chart was reviewed. The case was discussed. Agree with the plan of care. GOGO HERNANDEZ APRN Dec 29, 2019 11:06 MADELAINE ULLOA MD Dec 29, 2019 15:38
[2019-12-29 15:00] VITALS: BP 112/72
[2019-12-29 19:00] VITALS: BP 122/76
[2019-12-29] MEDS: LINEZOLID 600 MG TABLET PO SCH (21:11)
[2019-12-29] MEDS: AMOXICILLIN/K CLAV 875/125MG TABLET. PO SCH (21:11)
[2019-12-29] MEDS: ZOLPIDEM 5 MG TABLET. PO PRN (21:11)
[2019-12-29 23:02] VITALS: BP 108/68
[2019-12-30 03:26] VITALS: BP 107/72
[2019-12-30 07:59] VITALS: BP 101/76
[2019-12-30] MEDS: DOCUSATE SODIUM 100 MG CAPSULE. PO SCH (09:00)
[2019-12-30] MEDS: POLYETHYLENE GLYCOL 3350 17 GM PACKET. PO SCH (09:00)
[2019-12-30] MEDS: PSYLLIUM HUSK (SUGAR FREE) 1 PKT PACKET PO SCH (09:00)
[2019-12-30] MEDS: LINEZOLID 600 MG TABLET PO SCH (09:24)
[2019-12-30] MEDS: LACTOBACILLUS RHAMNOSUS GG 1 CAPSULE. PO SCH (09:25)
[2019-12-30] MEDS: BENZONATATE 100 MG CAPSULE. PO SCH ×2 (09:25→14:00)
[2019-12-30] MEDS: MICONAZOLE NITRATE 2% TOPICAL CREAM 28GM TUBE. TP SCH (09:26)
[2019-12-30] MEDS: AMOXICILLIN/K CLAV 875/125MG TABLET. PO SCH (09:27)
--- NOTE | 2019-12-30 09:42 | PDOC ---
PULMONARY PROGRESS NOTES Subjective denies sob, has occ cough, Vitals Vital Signs Date Time Temp Pulse Resp B/P (MAP) Pulse Ox O2 Delivery O2 Flow Rate FiO2 12/30/19 07:59 97.3 78 20 101/76 (84) 93 Room Air 97.3 ROS: No Nausea, No Chest Pain, No Abdominal Pain, No Increase Cough General: Alert, No acute distress Lungs: Crackles Cardiovascular: S1, S2 Abdomen: Soft, Non-tender Neuro Exam: Alert, Oriented Extremities: No Edema Skin: Warm Labs Laboratory Tests Test 12/29/19 04:30 White Blood Count 7.5 x10^3/uL (4.0-11.0) Red Blood Count 4.88 x10^6/uL (4.30-5.70) Hemoglobin 13.9 g/dL (13.0-17.5) Hematocrit 42.0 % (39.0-53.0) Mean Corpuscular Volume 86 fL (79-100) Mean Corpuscular Hemoglobin 29 pg (25-35) Mean Corpuscular Hemoglobin Concent 33 g/dL (31-37) Red Cell Distribution Width 14.2 % (11.5-14.5) Platelet Count 465 x10^3/uL (140-400) Neutrophils (%) (Auto) 54 % (31-73) Lymphocytes (%) (Auto) 35 % (24-48) Monocytes (%) (Auto) 4 % (0-9) Eosinophils (%) (Auto) 6 % (0-3) Basophils (%) (Auto) 1 % (0-3) Neutrophils # (Auto) 4.1 x10^3/uL (1.8-7.7) Lymphocytes # (Auto) 2.6 x10^3/uL (1.0-4.8) Monocytes # (Auto) 0.3 x10^3/uL (0.0-1.1) Eosinophils # (Auto) 0.5 x10^3/uL (0.0-0.7) Basophils # (Auto) 0.1 x10^3/uL (0.0-0.2) Sodium Level 144 mmol/L (136-145) Potassium Level 3.9 mmol/L (3.5-5.1) Chloride Level 107 mmol/L (98-107) Carbon Dioxide Level 26 mmol/L (21-32) Anion Gap 11 (6-14) Blood Urea Nitrogen 15 mg/dL (8-26) Creatinine 1.1 mg/dL (0.7-1.3) Estimated GFR (Cockcroft-Gault) 76.2 BUN/Creatinine Ratio 14 (6-20) Glucose Level 108 mg/dL (70-99) Calcium Level 8.5 mg/dL (8.5-10.1) Total Bilirubin 0.2 mg/dL (0.2-1.0) Aspartate Amino Transf (AST/SGOT) 25 U/L (15-37) Alanine Aminotransferase (ALT/SGPT) 55 U/L (16-63) Alkaline Phosphatase 60 U/L (46-116) Total Protein 6.4 g/dL (6.4-8.2) Albumin 2.7 g/dL (3.4-5.0) Albumin/Globulin Ratio 0.7 (1.0-1.7) Medications Active Scripts Medications Dose Route/Sig Max Daily Dose Days Date Category Probiotic (L.acidoph & Paracasei,B.lactis) 1 Each Capsule 1 Each PO BID 12/26/19 Reported Linezolid 100 Mg/5 Ml Susp.recon 600 Mg PO BID 7 12/26/19 Reported Augmentin 875-125 Tablet (Amoxicillin/Potassium Clav) 1 Each Tablet 1 Tab PO BID 21 12/26/19 Reported Hydrocodone-Acetamin 5-325 mg (Hydrocodone/Acetaminophen) 1 Each Tablet 1 Tab PO Q6HRS PRN 12/26/[address] done 12/27 1. Interval placement of left-sided pleural drain with interval decrease in size of left pleural effusion. 2. Wedge-shaped cavitary focus in the posterior left upper lobe has decreased in size, possibly improving abscess. Continued follow-up imaging to ensure resolution. 3. Improving left lower lobe airspace disease with persistent mild airspace disease at the right base. Impression . 1. Acute hypoxic respiratory failure secondary to necrotizing pneumonia/lung abscess. Clinically, unlikely tuberculosis and also unlikely pulmonary vasculitis. Vaping may be a risk factor. 2. Possible underlying chronic obstructive pulmonary disease, smoked for 16 years. 3. History of spontaneous pneumothorax on the right side 10 years ago, requiring chest tube and no other surgical intervention. 4. Abnormal CT CHEST S/P CHEST TUBE ON LEFT 5. Influenza Plan . ct out 12/28, doing well fu pleural fluid cxs abx per id fu ct in 4-6 wks hiv neg stop vaping or smoking for ever ok to dc from pulm stand point ZENOBIA JUNG MD Dec 30, 2019 09:42
--- NOTE | 2019-12-30 12:26 | PDOC ---
PROGRESS NOTES Chief Complaint Chief Complaint DISCHARGE DX pulmonary abscess Small left apical pneumothorax is stable. Stable lung disease at the left lower lobe. No pleural effusion. sepsis acute hypoxic repsiratory failure isolation for flu, r/o TB vaping related lung injury 12/28CONTINUE Zosyn (12/18) // linezolid (12/18) plan D/C ZYVOX, AUGMENTIN 12/29 d/c planning 32 min History of Present Illness History of Present Illness Mr Nix is a 34yo M w/ PMHx spontaneous PTX on right side who presented with persistent fever, cough, treated outpatient by PCP and urgent care for influenza who arrived on 12/19/2019 with multifocal pneumonia and fever 101.5F. Pulmonology and ID consulted. 12/19: Fever 100.5F 12/20: Afebrile 12/21: Isolation for influenza 12/22: HIV negative 12/23: TB negative 12/24: Improved symptoms 12/25: CT chest with worsening multifocal pneumonia, but improvement in left upper cavitation. Pleural effusion much larger, remained inpatient for chest tube placement 12/26: Tolerated left sided chest tube well with serosangiounous drainage of 500cc immediately with some coughing noted. No chest pain. Afebrile since 12/20/19 Overnight no events. 600cc fluid out of chest tube Breathing well. Has pain and pruritis in his scrotum and groin area. 12/28 less soa chest tube out 12/29 FEELS MUCH BETTER, ON ROOM AIR WANTS TO GO HOME 32 min pt exam, chart review, D/C PLANNING > 50% of time spent with exam, chart review, pt care coordination Vitals Vitals Vital Signs Date Time Temp Pulse Resp B/P (MAP) Pulse Ox O2 Delivery O2 Flow Rate FiO2 12/30/19 08:00 Room Air 12/30/19 07:59 97.3 78 20 101/76 (84) 93 97.3 Physical Exam Physical Exam GENERAL: Propped up in bed, alert and watching TV HEENT: Oral cavity clear NECK: Supple, no JVP, no lymphadenopathy. LUNGS: Dec BS at bases, Left chest tube out HEART: S1, S2 regular. ABDOMEN: Soft and nontender, BS active EXTREMITIES: No edema or cyanosis. SKIN: Warm to touch. No signs of rash NEUROLOGIC: Alert, awake and appropriate. No focal neurologic deficit. PIV ok General: Alert, Oriented X3, Cooperative, No acute distress Heart: Regular rate, Normal S1, Normal S2 Lungs: Crackles Abdomen: Normal bowel sounds, Soft, No tenderness Extremities: No clubbing, No cyanosis, No edema Skin: No rashes, No significant lesion Assessment and Plan Assessmemt and Plan Problems Medical Problems: (1) Leukocytosis Status: Acute (2) Pulmonary abscess Status: Acute Comment Review of Relevant I have reviewed the following items alysa (where applicable) has been applied. Labs Laboratory Tests Test 12/29/19 04:30 White Blood Count 7.5 x10^3/uL (4.0-11.0) Red Blood Count 4.88 x10^6/uL (4.30-5.70) Hemoglobin 13.9 g/dL (13.0-17.5) Hematocrit 42.0 % (39.0-53.0) Mean Corpuscular Volume 86 fL (79-100) Mean Corpuscular Hemoglobin 29 pg (25-35) Mean Corpuscular Hemoglobin Concent 33 g/dL (31-37) Red Cell Distribution Width 14.2 % (11.5-14.5) Platelet Count 465 x10^3/uL (140-400) Neutrophils (%) (Auto) 54 % (31-73) Lymphocytes (%) (Auto) 35 % (24-48) Monocytes (%) (Auto) 4 % (0-9) Eosinophils (%) (Auto) 6 % (0-3) Basophils (%) (Auto) 1 % (0-3) Neutrophils # (Auto) 4.1 x10^3/uL (1.8-7.7) Lymphocytes # (Auto) 2.6 x10^3/uL (1.0-4.8) Monocytes # (Auto) 0.3 x10^3/uL (0.0-1.1) Eosinophils # (Auto) 0.5 x10^3/uL (0.0-0.7) Basophils # (Auto) 0.1 x10^3/uL (0.0-0.2) Sodium Level 144 mmol/L (136-145) Potassium Level 3.9 mmol/L (3.5-5.1) Chloride Level 107 mmol/L (98-107) Carbon Dioxide Level 26 mmol/L (21-32) Anion Gap 11 (6-14) Blood Urea Nitrogen 15 mg/dL (8-26) Creatinine 1.1 mg/dL (0.7-1.3) Estimated GFR (Cockcroft-Gault) 76.2 BUN/Creatinine Ratio 14 (6-20) Glucose Level 108 mg/dL (70-99) Calcium Level 8.5 mg/dL (8.5-10.1) Total Bilirubin 0.2 mg/dL (0.2-1.0) Aspartate Amino Transf (AST/SGOT) 25 U/L (15-37) Alanine Aminotransferase (ALT/SGPT) 55 U/L (16-63) Alkaline Phosphatase 60 U/L (46-116) Total Protein 6.4 g/dL (6.4-8.2) Albumin 2.7 g/dL (3.4-5.0) Albumin/Globulin Ratio 0.7 (1.0-1.7) Microbiology 12/27/19 Aerobic and Anaerobic Culture, Resulted Pending 12/27/19 Anaerobic Culture Result 1 (ANTONI), Resulted Pending 12/27/19 Aerobic Culture, Resulted Pending 12/27/19 Aerobic Culture Result 1 (ANTONI), Resulted Pending 12/27/19 Gram Stain - Final, Resulted 12/27/19 Gram Stain Result 1 (ANTONI) - Final, Resulted 12/27/19 Gram Stain Result 2 (ANTONI) - Final, Resulted 12/20/19 - Final, Complete 12/20/19 - Final, Complete 12/20/19 - Final, Complete 12/20/19 Gram Stain Evaluation - Final, Complete 12/20/19 Sputum Culture - Final, Complete 12/20/19 Sputum Result 1 - Final, Complete 12/20/19 Sputum Result 2 - Final, Complete 12/19/19 Blood Culture - Final, Complete NO GROWTH AFTER 5 DAYS Medications Current Medications Ketorolac Tromethamine (Toradol 30mg Vial) 30 mg STK-MED ONCE .ROUTE ; Start 12/19/19 at 17:48; Stop 12/19/19 at 17:48; Status DC Ketorolac Tromethamine (Toradol 30mg Vial) 30 mg 1X ONCE IVP Last administered on 12/19/19at 17:54; Start 12/19/19 at 18:00; Stop 12/19/19 at 18:01; Status DC Sodium Chloride 1,000 ml @ 1,000 mls/hr 1X ONCE IV Last administered on 12/19/19at 17:54; Start 12/19/19 at 18:00; Stop 12/19/19 at 18:59; Status DC Iohexol (Omnipaque 300 Mg/ml) 75 ml 1X ONCE IV Last administered on 12/19/19at 18:23; Start 12/19/19 at 18:15; Stop 12/19/19 at 18:16; Status DC Info (CONTRAST GIVEN -- Rx MONITORING) 1 each PRN DAILY PRN MC SEE COMMENTS; Start 12/19/19 at 18:30; Stop 12/21/19 at 18:29; Status DC Sodium Chloride 1,000 ml @ 1,000 mls/hr 1X ONCE IV Last administered on 12/19/19at 18:57; Start 12/19/19 at 18:45; Stop 12/19/19 at 19:44; Status DC Ceftriaxone Sodium (Rocephin) 1 gm 1X ONCE IVP Last administered on 12/19/19at 18:56; Start 12/19/19 at 18:45; Stop 12/19/19 at 18:46; Status DC Piperacillin Sod/ Tazobactam Sod 3.375 gm/Sodium Chloride 50 ml @ 100 mls/hr 1X ONCE IV Last administered on 12/19/19at 19:40; Start 12/19/19 at 19:30; Stop 12/19/19 at 19:59; Status DC Vancomycin HCl 250 ml @ 250 mls/hr 1X ONCE IV Last administered on 12/19/19at 20:24; Start 12/19/19 at 19:30; Stop 12/19/19 at 20:29; Status DC Guaifenesin/ Codeine Phosphate (Robitussin Ac) 5 ml PRN Q6HRS PRN PO COUGH; Start 12/19/19 at 20:00; Stop 12/20/19 at 08:55; Status DC Ondansetron HCl (Zofran) 4 mg PRN Q8HRS PRN IV NAUSEA/VOMITING; Start 12/19/19 at 20:00; Stop 12/20/19 at 19:59; Status DC Morphine Sulfate (Morphine Sulfate) 2 mg PRN Q2HR PRN IV PAIN; Start 12/19/19 at 20:00; Stop 12/20/19 at 19:59; Status DC Sodium Chloride 1,000 ml @ 125 mls/hr Q8H IV Last administered on 12/20/19at 18:20; Start 12/19/19 at 19:50; Stop 12/20/19 at 19:49; Status DC Piperacillin Sod/ Tazobactam Sod (Zosyn Per Pharmacy) 1 each PRN DAILY PRN MC SEE COMMENTS; Start 12/19/19 at 20:30; Stop 12/29/19 at 15:43; Status DC Linezolid/Dextrose 300 ml @ 300 mls/hr Q12HR IV Last administered on 12/29/19at 08:55; Start 12/19/19 at 22:00; Stop 12/29/19 at 15:43; Status DC Piperacillin Sod/ Tazobactam Sod 4.5 gm/Sodium Chloride 100 ml @ 200 mls/hr Q6HRS IV Last administered on 12/29/19at 12:11; Start 12/20/19 at 00:00; Stop 12/29/19 at 15:43; Status DC Benzonatate (Tessalon Perle) 100 mg TID PO Last administered on 12/30/19at 09:25; Start 12/19/19 at 21:00 Guaifenesin/ Codeine Phosphate (Robitussin Ac) 10 ml PRN Q6HRS PRN PO COUGH Last administered on 12/24/19at 21:30; Start 12/19/19 at 20:45 Guaifenesin (Mucinex) 600 mg BID PO Last administered on 12/30/19at 09:24; Start 12/19/19 at 21:00 Acetaminophen (Tylenol) 650 mg Q6HRS ONCE PO Last administered on 12/19/19at 21:39; Start 12/20/19 at 00:00; Stop 12/19/19 at 21:41; Status DC Acetaminophen (Tylenol) 650 mg 1X ONCE PO Last administered on 12/20/19at 00:59; Start 12/20/19 at 00:00; Stop 12/20/19 at 00:01; Status DC Lactobacillus Rhamnosus (Culturelle) 1 cap BID PO Last administered on 12/30/19at 09:25; Start 12/20/19 at 09:00 Oseltamivir Phosphate (Tamiflu) 75 mg BID PO Last administered on 12/24/19at 21:29; Start 12/20/19 at 12:00; Stop 12/24/19 at 21:01; Status DC Tuberculin PPD (Tubersol) 0.1 ml 1X ONCE ID Last administered on 12/20/19at 15:35; Start 12/20/19 at 15:30; Stop 12/20/19 at 15:31; Status DC Sodium Chloride 1,000 ml @ 75 mls/hr 1X ONCE IV Last administered on 12/21/19at 18:34; Start 12/21/19 at 18:00; Stop 12/22/19 at 09:45; Status DC Acetaminophen/ Hydrocodone Bitart (Lortab 5/325) 1 tab PRN Q4HRS PRN PO M ODERATE PAIN Last administered on 12/28/19at 22:40; Start 12/21/19 at 19:15 Zolpidem Tartrate (Ambien) 5 mg PRN QHS PRN PO INSOMNIA Last administered on 12/29/19at 21:11; Start 12/22/19 at 00:15 Docusate Sodium (Colace) 100 mg DAILY PO Last administered on 12/23/19at 08:48; Start 12/22/19 at 15:00; Stop 12/24/19 at 14:50; Status DC Lidocaine HCl (Buffered Lidocaine 1%) 3 ml STK-MED ONCE .ROUTE ; Start 12/27/19 at 07:59; Stop 12/27/19 at 07:59; Status DC Midazolam HCl (Versed) 5 mg STK-MED ONCE .ROUTE ; Start 12/27/19 at 08:14; Stop 12/27/19 at 08:16; Status DC Fentanyl Citrate (Fentanyl 5ml Vial) 250 mcg STK-MED ONCE .ROUTE ; Start 12/27/19 at 08:15; Stop 12/27/19 at 08:16; Status DC Lidocaine HCl (Buffered Lidocaine 1%) 3 ml 1X ONCE IJ Last administered on 12/27/19at 08:31; Start 12/27/19 at 08:30; Stop 12/27/19 at 08:33; Status DC Midazolam HCl (Versed) 5 mg 1X ONCE IV Last administered on 12/27/19at 08:31; Start 12/27/19 at 08:30; Stop 12/27/19 at 08:33; Status DC Fentanyl Citrate (Fentanyl 5ml Vial) 250 mcg 1X ONCE IV Last administered on 12/27/19 08:31; Start 12/27/19 at 08:30; Stop 12/27/19 at 08:33; Status DC Docusate Sodium (Colace) 100 mg DAILY PO ; Start 12/29/19 at 09:00 Miconazole Nitrate (Monistat-Derm) 1 linda BID TP Last administered on 12/30/19at 09:26; Start 12/28/19 at 15:00 Polyethylene Glycol (miraLAX PACKET) 17 gm DAILY PO Last administered on 12/28/19 14:00; Start 12/28/19 at 15:00 Psyllium Hydrophilic Mucilloid (Metamucil Fiber Packet) 1 pkt DAILY PO Last administered on 12/28/19at 14:00; Start 12/28/19 at 15:00 Linezolid (Zyvox) 600 mg BID PO Last administered on 12/30/19at 09:24; Start 12/29/19 at 21:00 Amoxicillin/ Clavulanate Potassium (Augmentin 875/ 125mg) 1 tab BID PO Last administered on 12/30/19 09:27; Start 12/29/19 at 21:00 Active Scripts Active Reported Probiotic (L.acidoph & Paracasei,B.lactis) 1 Each Capsule 1 Each PO BID Linezolid 100 Mg/5 Ml Susp.recon 600 Mg PO BID 7 Days Augmentin 875-125 Tablet (Amoxicillin/Potassium Clav) 1 Each Tablet 1 Tab PO BID 21 Days Hydrocodone-Acetamin 5-325 mg (Hydrocodone/Acetaminophen) 1 Each Tablet 1 Tab PO Q6HRS PRN Vitals/I & O Vital Sign - Last 24 Hours 12/29/19 12/29/19 12/29/19 12/29/19 15:00 19:00 20:00 23:02 Temp 98.0 97.9 98.0 98.0 97.9 98.0 Pulse 81 90 94 Resp 20 18 18 B/P (MAP) 112/72 (85) 122/76 (91) 108/68 (81) Pulse Ox 95 94 96 O2 Delivery Room Air Room Air Room Air Room Air 12/30/19 12/30/19 12/30/19 03:26 07:59 08:00 Temp 98.1 97.3 98.1 97.3 Pulse 74 78 Resp 18 20 B/P (MAP) 107/72 (84) 101/76 (84) Pulse Ox 95 93 O2 Delivery Room Air Room Air Room Air Intake and Output 12/29/19 12/29/19 12/30/19 15:00 23:00 07:00 Intake Total 720 ml 540 ml Output Total 300 ml 250 ml Balance 420 ml 290 ml VITALY RAMIREZ MD Dec 30, 2019 12:26
--- NOTE | 2019-12-30 13:15 | PDOC3 ---
Discharge Summary Date of Admission: Dec 19, 2019 Date of Discharge: Dec 30, 2019 Follow-Up: 3-5 days Admitting Diagnosis comment: DISCHARGE DX pulmonary abscess Small left apical pneumothorax is stable. Stable lung disease at the left lower lobe. No pleural effusion. sepsis acute hypoxic repsiratory failure isolation for flu, r/o TB vaping related lung injury 12/28CONTINUE Zosyn (12/18) // linezolid (12/18) plan D/C ZYVOX, AUGMENTIN 12/29 d/c planning 32 min History of Present Illness History of Present Illness Mr Nix is a 34yo M w/ PMHx spontaneous PTX on right side who presented with persistent fever, cough, treated outpatient by PCP and urgent care for influenza who arrived on 12/19/2019 with multifocal pneumonia and fever 101.5F. Pulmonology and ID consulted. 12/19: Fever 100.5F 12/20: Afebrile 12/21: Isolation for influenza 12/22: HIV negative 12/23: TB negative 12/24: Improved symptoms 12/25: CT chest with worsening multifocal pneumonia, but improvement in left upper cavitation. Pleural effusion much larger, remained inpatient for chest tube placement 12/26: Tolerated left sided chest tube well with serosangiounous drainage of 500cc immediately with some coughing noted. No chest pain. Afebrile since 12/20/1912/27 Overnight no events. 600cc fluid out of chest tube Breathing well. Has pain and pruritis in his scrotum and groin area. 12/28 less soa chest tube out 12/29 FEELS MUCH BETTER, ON ROOM AIR WANTS TO GO HOME 32 min pt exam, chart review, D/C PLANNING > 50% of time spent with exam, chart review, pt care coordination Vitals Vitals Vital Signs Date Time Temp Pulse Resp B/P (MAP) Pulse Ox O2 Delivery O2 Flow Rate FiO2 12/30/19 08:00 Room Air 12/30/19 07:59 97.3 78 20 101/76 (84) 93 97.3 Physical Exam Physical Exam GENERAL: Propped up in bed, alert and watching TV HEENT: Oral cavity clear NECK: Supple, no JVP, no lymphadenopathy. LUNGS: Dec BS at bases, Left chest tube out HEART: S1, S2 regular. ABDOMEN: Soft and nontender, BS active EXTREMITIES: No edema or cyanosis. SKIN: Warm to touch. No signs of rash NEUROLOGIC: Alert, awake and appropriate. No focal neurologic deficit. PIV ok General: Alert, Oriented X3, Cooperative, No acute distress Heart: Regular rate, Normal S1, Normal S2 Lungs: Crackles Abdomen: Normal bowel sounds, Soft, No tenderness Extremities: No clubbing, No cyanosis, No edema Skin: No rashes, No significant lesion FINAL DIAGNOSIS Problems Medical Problems: (1) Leukocytosis Status: Acute (2) Pulmonary abscess Status: Acute Brief Hospital Course Mr. Nix is a 34 old [sex] who presented with [PULMONARY ABSCESS, INFLUENZA ] CONDITION AT DISCHARGE: Improved Discharge Medications Current Medications Ketorolac Tromethamine (Toradol 30mg Vial) 30 mg STK-MED ONCE .ROUTE ; Start 12/19/19 at 17:48; Stop 12/19/19 at 17:48; Status DC Ketorolac Tromethamine (Toradol 30mg Vial) 30 mg 1X ONCE IVP Last administered on 12/19/19at 17:54; Start 12/19/19 at 18:00; Stop 12/19/19 at 18:01; Status DC Sodium Chloride 1,000 ml @ 1,000 mls/hr 1X ONCE IV Last administered on 12/19/19at 17:54; Start 12/19/19 at 18:00; Stop 12/19/19 at 18:59; Status DC Iohexol (Omnipaque 300 Mg/ml) 75 ml 1X ONCE IV Last administered on 12/19/19at 18:23; Start 12/19/19 at 18:15; Stop 12/19/19 at 18:16; Status DC Info (CONTRAST GIVEN -- Rx MONITORING) 1 each PRN DAILY PRN MC SEE COMMENTS; Start 12/19/19 at 18:30; Stop 12/21/19 at 18:29; Status DC Sodium Chloride 1,000 ml @ 1,000 mls/hr 1X ONCE IV Last administered on 12/19/19at 18:57; Start 12/19/19 at 18:45; Stop 12/19/19 at 19:44; Status DC Ceftriaxone Sodium (Rocephin) 1 gm 1X ONCE IVP Last administered on 12/19/19at 18:56; Start 12/19/19 at 18:45; Stop 12/19/19 at 18:46; Status DC Piperacillin Sod/ Tazobactam Sod 3.375 gm/Sodium Chloride 50 ml @ 100 mls/hr 1X ONCE IV Last administered on 12/19/19at 19:40; Start 12/19/19 at 19:30; Stop 12/19/19 at 19:59; Status DC Vancomycin HCl 250 ml @ 250 mls/hr 1X ONCE IV Last administered on 12/19/19at 20:24; Start 12/19/19 at 19:30; Stop 12/19/19 at 20:29; Status DC Guaifenesin/ Codeine Phosphate (Robitussin Ac) 5 ml PRN Q6HRS PRN PO COUGH; Start 12/19/19 at 20:00; Stop 12/20/19 at 08:55; Status DC Ondansetron HCl (Zofran) 4 mg PRN Q8HRS PRN IV NAUSEA/VOMITING; Start 12/19/19 at 20:00; Stop 12/20/19 at 19:59; Status DC Morphine Sulfate (Morphine Sulfate) 2 mg PRN Q2HR PRN IV PAIN; Start 12/19/19 at 20:00; Stop 12/20/19 at 19:59; Status DC Sodium Chloride 1,000 ml @ 125 mls/hr Q8H IV Last administered on 12/20/19at 18:20; Start 12/19/19 at 19:50; Stop 12/20/19 at 19:49; Status DC Piperacillin Sod/ Tazobactam Sod (Zosyn Per Pharmacy) 1 each PRN DAILY PRN MC SEE COMMENTS; Start 12/19/19 at 20:30; Stop 12/29/19 at 15:43; Status DC Linezolid/Dextrose 300 ml @ 300 mls/hr Q12HR IV Last administered on 12/29/19at 08:55; Start 12/19/19 at 22:00; Stop 12/29/19 at 15:43; Status DC Piperacillin Sod/ Tazobactam Sod 4.5 gm/Sodium Chloride 100 ml @ 200 mls/hr Q6HRS IV Last administered on 12/29/19at 12:11; Start 12/20/19 at 00:00; Stop 12/29/19 at 15:43; Status DC Benzonatate (Tessalon Perle) 100 mg TID PO Last administered on 12/30/19 09:25; Start 12/19/19 at 21:00 Guaifenesin/ Codeine Phosphate (Robitussin Ac) 10 ml PRN Q6HRS PRN PO COUGH Last administered on 12/24/19 21:30; Start 12/19/19 at 20:45 Guaifenesin (Mucinex) 600 mg BID PO Last administered on 12/30/19 09:24; Start 12/19/19 at 21:00 Acetaminophen (Tylenol) 650 mg Q6HRS ONCE PO Last administered on 12/19/19 21:39; Start 12/20/19 at 00:00; Stop 12/19/19 at 21:41; Status DC Acetaminophen (Tylenol) 650 mg 1X ONCE PO Last administered on 12/20/19 00:59; Start 12/20/19 at 00:00; Stop 12/20/19 at 00:01; Status DC Lactobacillus Rhamnosus (Culturelle) 1 cap BID PO Last administered on 12/30/19 09:25; Start 12/20/19 at 09:00 Oseltamivir Phosphate (Tamiflu) 75 mg BID PO Last administered on 12/24/19 21:29; Start 12/20/19 at 12:00; Stop 12/24/19 at 21:01; Status DC Tuberculin PPD (Tubersol) 0.1 ml 1X ONCE ID Last administered on 12/20/19at 15:35; Start 12/20/19 at 15:30; Stop 12/20/19 at 15:31; Status DC Sodium Chloride 1,000 ml @ 75 mls/hr 1X ONCE IV Last administered on 12/21/19at 18:34; Start 12/21/19 at 18:00; Stop 12/22/19 at 09:45; Status DC Acetaminophen/ Hydrocodone Bitart (Lortab 5/325) 1 tab PRN Q4HRS PRN PO MODERATE PAIN Last administered on 12/28/19 22:40; Start 12/21/19 at 19:15 Zolpidem Tartrate (Ambien) 5 mg PRN QHS PRN PO INSOMNIA Last administered on 12/29/19at 21:11; Start 12/22/19 at 00:15 Docusate Sodium (Colace) 100 mg DAILY PO Last administered on 12/23/19at 08:48; Start 12/22/19 at 15:00; Stop 12/24/19 at 14:50; Status DC Lidocaine HCl (Buffered Lidocaine 1%) 3 ml STK-MED ONCE .ROUTE ; Start 12/27/19 at 07:59; Stop 12/27/19 at 07:59; Status DC Midazolam HCl (Versed) 5 mg STK-MED ONCE .ROUTE ; Start 12/27/19 at 08:14; Stop 12/27/19 at 08:16; Status DC Fentanyl Citrate (Fentanyl 5ml Vial) 250 mcg STK-MED ONCE .ROUTE ; Start 12/27/19 at 08:15; Stop 12/27/19 at 08:16; Status DC Lidocaine HCl (Buffered Lidocaine 1%) 3 ml 1X ONCE IJ Last administered on 12/27/19at 08:31; Start 12/27/19 at 08:30; Stop 12/27/19 at 08:33; Status DC Midazolam HCl (Versed) 5 mg 1X ONCE IV Last administered on 12/27/19at 08:31; Start 12/27/19 at 08:30; Stop 12/27/19 at 08:33; Status DC Fentanyl Citrate (Fentanyl 5ml Vial) 250 mcg 1X ONCE IV Last administered on 12/27/19at 08:31; Start 12/27/19 at 08:30; Stop 12/27/19 at 08:33; Status DC Docusate Sodium (Colace) 100 mg DAILY PO ; Start 12/29/19 at 09:00 Miconazole Nitrate (Monistat-Derm) 1 linda BID TP Last administered on 12/30/19at 09:26; Start 12/28/19 at 15:00 Polyethylene Glycol (miraLAX PACKET) 17 gm DAILY PO Last administered on 12/28/19at 14:00; Start 12/28/19 at 15:00 Psyllium Hydrophilic Mucilloid (Metamucil Fiber Packet) 1 pkt DAILY PO Last administered on 12/28/19at 14:00; Start 12/28/19 at 15:00 Linezolid (Zyvox) 600 mg BID PO Last administered on 12/30/19at 09:24; Start 12/29/19 at 21:00 Amoxicillin/ Clavulanate Potassium (Augmentin 875/ 125mg) 1 tab BID PO Last administered on 12/30/19at 09:27; Start 12/29/19 at 21:00 Active Scripts Active Reported Probiotic (L.acidoph & Paracasei,B.lactis) 1 Each Capsule 1 Each PO BID Linezolid 100 Mg/5 Ml Susp.recon 600 Mg PO BID 7 Days Augmentin 875-125 Tablet (Amoxicillin/Potassium Clav) 1 Each Tablet 1 Tab PO BID 21 Days Hydrocodone-Acetamin 5-325 mg (Hydrocodone/Acetaminophen) 1 Each Tablet 1 Tab PO Q6HRS PRN Vital Signs Vital Signs Date Time Temp Pulse Resp B/P (MAP) Pulse Ox O2 Delivery O2 Flow Rate FiO2 12/30/19 08:00 Room Air 12/30/19 07:59 97.3 78 20 101/76 (84) 93 97.3 Labs Laboratory Tests Test 12/29/19 04:30 White Blood Count 7.5 x10^3/uL (4.0-11.0) Red Blood Count 4.88 x10^6/uL (4.30-5.70) Hemoglobin 13.9 g/dL (13.0-17.5) Hematocrit 42.0 % (39.0-53.0) Mean Corpuscular Volume 86 fL (79-100) Mean Corpuscular Hemoglobin 29 pg (25-35) Mean Corpuscular Hemoglobin Concent 33 g/dL (31-37) Red Cell Distribution Width 14.2 % (11.5-14.5) Platelet Count 465 x10^3/uL (140-400) Neutrophils (%) (Auto) 54 % (31-73) Lymphocytes (%) (Auto) 35 % (24-48) Monocytes (%) (Auto) 4 % (0-9) Eosinophils (%) (Auto) 6 % (0-3) Basophils (%) (Auto) 1 % (0-3) Neutrophils # (Auto) 4.1 x10^3/uL (1.8-7.7) Lymphocytes # (Auto) 2.6 x10^3/uL (1.0-4.8) Monocytes # (Auto) 0.3 x10^3/uL (0.0-1.1) Eosinophils # (Auto) 0.5 x10^3/uL (0.0-0.7) Basophils # (Auto) 0.1 x10^3/uL (0.0-0.2) Sodium Level 144 mmol/L (136-145) Potassium Level 3.9 mmol/L (3.5-5.1) Chloride Level 107 mmol/L (98-107) Carbon Dioxide Level 26 mmol/L (21-32) Anion Gap 11 (6-14) Blood Urea Nitrogen 15 mg/dL (8-26) Creatinine 1.1 mg/dL (0.7-1.3) Estimated GFR (Cockcroft-Gault) 76.2 BUN/Creatinine Ratio 14 (6-20) Glucose Level 108 mg/dL (70-99) Calcium Level 8.5 mg/dL (8.5-10.1) Total Bilirubin 0.2 mg/dL (0.2-1.0) Aspartate Amino Transf (AST/SGOT) 25 U/L (15-37) Alanine Aminotransferase (ALT/SGPT) 55 U/L (16-63) Alkaline Phosphatase 60 U/L (46-116) Total Protein 6.4 g/dL (6.4-8.2) Albumin 2.7 g/dL (3.4-5.0) Albumin/Globulin Ratio 0.7 (1.0-1.7) Allergies Allergies Coded Allergies Type Severity Reaction Last Updated Verified No Known Drug Allergies 12/19/19 No Disposition/Orders: D/C to Home VITALY RAMIREZ MD Dec 30, 2019 13:15
[2019-12-30] MEDS ORDERED: DOCU-153 PO (13:17)
[2019-12-30] MEDS ORDERED: MICO14CR TP (13:17)
--- NOTE | 2019-12-30 13:17 | DISCH ---
DISCHARGE INSTRUCTIONS Condition on Discharge Condition on Discharge: Stable Activity After Discharge Activity Instructions for Disc: Activity as tolerated Lifting Instructions after Dis: No heavy lifting, No pulling or pushing Driving Instructions after Dis: Do not drive Diet after Discharge Diet after Discharge: Regular Liquid Texture: Thin Liquid Contacting the after DC Call your doctor for: If your condition worsens Follow-Up Follow up with: Dante Neil ([facility]) as needed [phone] Follow Up With: Dr. Mena in 6 weeks [phone] Treatment/Equipment after DC Comment: back/scapula Warfarin Follow-Up Warfarin Follow UP: SEE PCP IN 4-5 DAYS VITALY RAMIREZ MD Dec 30, 2019 13:17
--- NOTE | 2019-12-30 14:35 | NUR ---
PATIENT LEAVES THE UNIT PER W/C AND ACCOMPANIED BY FLIGHT DYNAMICIST, EMOTIONAL SUPPORT GIVEN, FOLLOW UP APPOINTMENTS ENCOURAGED, SALINE LOCK REMOVED PRIOR TO DISCHARGE AND DRESSING CHANGE COMPLETED PER THIS GUT PULLER.
== END 2019-12-30 14:35 | disposition home or self-care (01) | DRG 871 ==
LOC: ER 16:22 → ED HOLD 21:35 → 2 SOUTH 21:42 → 5 SOUTH 12-26 20:26
PROVIDERS: ADMIT Internal Medicine; ATTEND Internal Medicine
PROC: 0W9B30Z Drainage of Left Pleural Cavity with Drainage Device, Percutaneous Approach (ICD-10-PCS; principal; 2019-12-27)
PROC: 0WPBX0Z Removal of Drainage Device from Left Pleural Cavity, External Approach (ICD-10-PCS; 2019-12-30)
DX: A41.9 Sepsis, unspecified organism (principal); J85.1 Abscess of lung with pneumonia; J96.01 Acute respiratory failure with hypoxia; J11.00 Influenza due to unidentified influenza virus with unspecified type of pneumonia; J44.0 Chronic obstructive pulmonary disease with (acute) lower respiratory infection; J90 Pleural effusion, not elsewhere classified; J93.83 Other pneumothorax; J98.11 Atelectasis; F17.210 Nicotine dependence, cigarettes, uncomplicated; L29.9 Pruritus, unspecified; Z82.5 Family history of asthma and other chronic lower respiratory diseases; Z79.899 Other long term (current) drug therapy
CPT/HCPCS: 32557; 36415; 71045; 71046; 71250; 71260; 80048; 80053; 81001; 83605; 83615; 83735; 83986; 84157; 84484; 85007; 85025; 85610; 86703; 87040; 87070; 87071; 87075; 87102; 87116; 87205; 88112; 88305; 93005; 96361; 96365; 96367; 96375; 99152; 99153; A4215; C1729; C1892; C1894; J0696; J1885; J2020; J2250; J2543; J3010; J3370; J3490; J7030; Q9967; 99285-25; G0378

== ENCOUNTER → 2020-03-19 | Outpatient (CLI) | payer OTHER ==
[~2020-03-19] MED LIST: AMOX1TAB61 PO; DOCU-153 PO; HYDR-2759 PO; L.AC1CAP6 PO; LINE100S2 PO; MICO14CR TP
--- NOTE | 2020-03-19 17:31 | RAD ---
EXAM: CHEST PA LATERAL INDICATION: Reason: left side lung mass / Spl. Instructions: / History: . TECHNIQUE: AP and lateral views COMPARISON: Chest x-ray 12/29/[address] without IV contrast of 12/28/2019 FINDINGS: The heart size is normal. The great vessels appear unremarkable. There is no hilar or mediastinal mass. Dense opacity with associated scarring at the right lung apex remains present. Mild pleural thickening. The masslike opacity in the mid left lung has markedly improved, now essentially resolved. Lungs also show biapical emphysematous changes and otherwise are clear. There is no pleural effusion or pneumothorax. There are no significant osseous abnormalities. IMPRESSION: Essentially resolved left midlung masslike opacity with residual emphysematous change and right apical pleural-parenchymal scarring. Electronically signed by: Neyda Guo MD (03/19/2020 5:28 PM) [id number]
== END | disposition home or self-care (01) ==
LOC: RAD 16:31
PROVIDERS: ATTEND Internal Medicine Critical Care Medicine
DX: J92.9 Pleural plaque without asbestos (principal); J98.4 Other disorders of lung; J43.9 Emphysema, unspecified
CPT/HCPCS: 71046